=== PATIENT | female | born 1960 | race Caucasian/White ===

== ENCOUNTER → 2016-11-22 | Outpatient (CLI) | payer BC ==
--- NOTE | 2016-11-22 15:35 | XR ---
EXAMINATION TYPE: XR chest 2V DATE OF EXAM: 11/22/2016 3:26 PM COMPARISON: Prior chest x-ray October 22, 2013 HISTORY: Respiratory crackles and cough. TECHNIQUE: Frontal and lateral views of the chest are obtained. FINDINGS: There is central increased predominantly linear opacity bilaterally. No pleural effusion or pneumothorax is seen. The cardiac silhouette size is within normal limits. The osseous structure s are intact. IMPRESSION: Bilateral central perihilar edema and/or infiltrates felt present more prominent than pr ior study.
== END | disposition home or self-care (01) ==
LOC: RADXRMAIN 15:06
PROVIDERS: ATTEND Family Medicine
DX: R91.8 Other nonspecific abnormal finding of lung field (principal); R09.89 Other specified symptoms and signs involving the circulatory and respiratory systems
CPT/HCPCS: 71020

== ENCOUNTER → 2016-12-20 | Outpatient (CLI) | payer BC ==
--- NOTE | 2016-12-20 13:28 | CT ---
EXAMINATION TYPE: CT chest w con DATE OF EXAM: 12/20/2016 12:00 PM COMPARISON: NONE HISTORY: Abnormal findings CT DLP: 422.40 mGycm, Automated exposure control for dose reduction was used. CONTRAST: Performed injected with 100 ml mL of Omnipaque 300. TECHNIQUE: Axial images were obtained at 5 mm thick sections. Reconstructed images are reviewed on [employer] computer in the coronal plane. FINDINGS: Portion of the thyroid visualized is normal. A 0.5 cm pleural-based densities in the posterior right apex. Series 4 image 10. Scattered infiltrates are within the right middle lobe lingula and left lower lobe. Findings are nons pecific but can be related to atelectasis or pneumonia and atypical pulmonary edema. Follow-up is rec ommended. No enlarged mediastinal or hilar adenopathy is evident. The ascending aorta diameter at the level o f the main pulmonary artery is 2.9 cm. The main pulmonary artery diameter at the bifurcation is 2.[address] sections are obtained through the upper abdomen. Abdomen is essentially unremarkable. IMPRESSIONS: 1. Scattered areas of pneumonitis within the right middle lobe lingula and left lower lobe. Correlate for atelectasis or pneumonia. Atypical pulmonary edema could be considered.
--- NOTE | 2016-12-24 09:15 | MM ---
Reason for exam: screening (asymptomatic). Last mammogram was performed 2 years and 5 months ago. History: Patient is postmenopausal. Took estrogen for 12 years beginning at age 44. Physical Findings: A clinical breast exam by your physician is recommended on an annual basis and results should be correlated with mammographic findings. MG Screening Mammo w CAD Bilateral CC and MLO view(s) were taken. Prior study comparison: July 28, 2014, bilateral MG screening mammo w CAD. November 27, 2012, [facility] DIGITAL RIGHT MAMMOGRAM w/CAD. There are scattered fibroglandular densities. There is no discrete abnormality. No significant changes when compared with prior studies. ASSESSMENT: Negative, BI-RAD 1 RECOMMENDATION: Routine screening mammogram of both breasts in 1 year.
== END | disposition home or self-care (01) ==
LOC: RADMAMWWP 11:05
PROVIDERS: ATTEND Family Medicine
DX: Z12.31 Encounter for screening mammogram for malignant neoplasm of breast (principal); J18.9 Pneumonia, unspecified organism
CPT/HCPCS: 71260; G0202; Q9967

== ENCOUNTER → 2017-02-28 | Outpatient (CLI) | payer BC ==
--- NOTE | 2017-02-28 16:12 | CT ---
EXAMINATION TYPE: CT chest wo con DATE OF EXAM: 02/28/2017 3:37 PM COMPARISON: CT chest December 20, 2016 HISTORY: Abnormal Left sided lung sounds per patient CT DLP: 268 mGycm. Automated Exposure Control for Dose Reduction was Utilized. TECHNIQUE: CT scan of the thorax is performed without IV contrast. FINDINGS: LUNGS: There is persistent fibrosis with reticulation bilaterally most prominent in the upper to mid lungs particularly bilateral upper lobes. Mild to minimal bronchiectatic change suprahilar region carl aterally remains present. Lung bases show no evidence of significant acute or chronic lung disease. M idlung zones show less prominent peripheral reticulation and fibrosis. No significant progression fro m prior study is seen. No pleural effusion or pneumothorax is noted MEDIASTINUM: Lack of IV contrast is noted to limit evaluation for mediastinal and especially hilar ad enopathy. There are no definitive greater than 1 cm hilar or mediastinal lymph nodes. No cardiomega ly or pericardial effusion is seen. OTHER: No additional significant abnormality is seen. IMPRESSION: Central upper lung fibrotic change in both lungs without acute pulmonary process nicci avalos
== END | disposition home or self-care (01) ==
LOC: RADCTMAIN 15:14
PROVIDERS: ATTEND Internal Medicine Critical Care Medicine
DX: J84.10 Pulmonary fibrosis, unspecified (principal)
CPT/HCPCS: 71250

== ENCOUNTER → 2018-09-15 | Outpatient (CLI) | payer BC ==
--- NOTE | 2018-09-16 12:15 | MM ---
Reason for exam: screening (asymptomatic). Last mammogram was performed 1 year and 9 months ago. History: Patient is postmenopausal. Took estrogen for 12 years beginning at age 44. Physical Findings: A clinical breast exam by your physician is recommended on an annual basis and results should be correlated with mammographic findings. MG Screening Mammo w CAD Bilateral CC and MLO view(s) were taken. Prior study comparison: December 20, 2016, bilateral MG screening mammo w CAD. July 28, 2014, bilateral MG screening mammo w CAD. There are scattered fibroglandular densities. No significant changes when compared with prior studies. ASSESSMENT: Benign, BI-RAD 2 RECOMMENDATION: Routine screening mammogram of both breasts in 1 year.
== END ==
LOC: RADMAMWWP 11:09
PROVIDERS: ATTEND Family Medicine
DX: Z12.31 Encounter for screening mammogram for malignant neoplasm of breast (principal)
CPT/HCPCS: 77067

== ENCOUNTER → 2018-10-10 | Outpatient (CLI) | payer BC ==
--- NOTE | 2018-10-10 12:23 | XR ---
EXAMINATION TYPE: XR thoracic spine 2V DATE OF EXAM: 10/10/2018 COMPARISON: None HISTORY: Thoracic back pain TECHNIQUE: Three-view thoracic spine FINDINGS: There are 11 thoracic type vertebral bodies. The T12 level may be a transitional. Vertebral body heights are preserved. Disc heights are preserved. Some mild scoliosis may be present. This cou ld be positional. IMPRESSION: 1. No suspicious acute changes thoracic spine.
== END | disposition home or self-care (01) ==
LOC: RADXRMAIN 10:36
PROVIDERS: ATTEND Family Medicine
DX: M54.6 Pain in thoracic spine (principal)
CPT/HCPCS: 72070

== ENCOUNTER → 2018-12-12 | Outpatient (CLI) | payer BC ==
--- NOTE | 2018-12-12 16:38 | XR ---
EXAMINATION TYPE: XR cervical spine comp DATE OF EXAM: 12/12/2018 COMPARISON: None HISTORY: Rheumatoid arthritis, TECHNIQUE: Five-view cervical spine FINDINGS: Very minimal vascular calcification is likely present vessels bilaterally. Vertebral body h eights are preserved. Disc heights are preserved. Prevertebral space is normal. Posterior spinal lame llar line is intact. IMPRESSION: 1. Normal 5 view cervical spine
--- NOTE | 2018-12-12 16:40 | XR ---
EXAMINATION TYPE: XR chest 2V DATE OF EXAM: 12/12/2018 COMPARISON: Chest x-ray 11/22/2016 INDICATION: Rheumatoid arthritis TECHNIQUE: Frontal and lateral views of the chest are obtained. FINDINGS: The heart size is normal. The pulmonary vasculature is normal. There is mild increased lung markings left perihilar region. Some milder findings are present in the right perihilar region.. Findings have improved from the previous study are likely chronic IMPRESSION: 1. There appear to be chronic perihilar lung markings
--- NOTE | 2018-12-12 17:21 | XR ---
EXAMINATION TYPE: XR hand complete bilateral DATE OF EXAM: 12/12/2018 COMPARISON: None HISTORY: Rheumatoid arthritis TECHNIQUE: Three-view right hand FINDINGS: 3 view right hand appears normal without acute fracture or dislocations. Soft tissues are n ormal. Joint spaces are preserved. No periarticular erosions are evident. IMPRESSION: 1. Normal three-view right hand
--- NOTE | 2018-12-12 17:27 | XR ---
EXAMINATION TYPE: XR wrist complete BILATERAL DATE OF EXAM: 12/12/2018 COMPARISON: None HISTORY: Rheumatoid arthritis TECHNIQUE: 4 views each bilateral wrists FINDINGS: Soft tissues are normal. Joint spaces are preserved. No acute fractures or dislocations are evident. IMPRESSION: 1. Normal bilateral wrists.
== END | disposition home or self-care (01) ==
LOC: RADXRMAIN 11:45
PROVIDERS: ATTEND Internal Medicine
DX: M06.9 Rheumatoid arthritis, unspecified (principal)
CPT/HCPCS: 71046; 72050

== ENCOUNTER → 2018-12-13 | Outpatient (CLI) | payer BC ==
[2018-12-13 10:07] LABS: Basophils % (A) 1 %; Eosinophils # (A) 0.2 k/uL (0-0.7); Eosinophils % (A) 2 %; HCT 40.8 % (34.0-46.0); HGB 13.5 gm/dL (11.4-16.0); Lymphocytes % (A) 45 %; MCH 32.2 pg (25.0-35.0); MCHC 33.1 g/dL (31.0-37.0); MCV 97.2 fL (80.0-100.0); Mean Platelet Volume 6.5; Monocytes # (A) 0.4 k/uL (0-1.0); Monocytes % (A) 5 %; Neutrophils # (A) 4.2 k/uL (1.3-7.7); Neutrophils % (A) 47 %; Platelet Count 374 k/uL (150-450); RBC 4.19 m/uL (3.80-5.40); RDW 12.4 % (11.5-15.5)
[2018-12-13 10:17] LABS: Appearance,Urine Clear (Clear); Bilirubin,Urine Negative (Negative); Blood,Urine Negative (Negative); Color,Urine Light Yellow; Glucose,Urine (UA) Negative (Negative); Ketones,Urine Negative (Negative); Leukocyte Esterase,Urine Negative (Negative); Nitrite,Urine Negative (Negative); PH, Urine 6.5 (5.0-8.0); Protein,Urine Negative (Negative); Specific Gravity,Urine 1.008 (1.001-1.035); Urobilinogen,Urine <2.0 mg/dL (<2.0)
[2018-12-13 17:32] LABS: T4, Free (Free Thyroxine) 1.4 ng/dL (0.80-1.80)
[2018-12-13 17:42] LABS: Albumin 4.4 g/dL (3.80-4.90); Albumin/Globulin Ratio 1.76 (1.60-3.17); Anion Gap 6.4 mmol/L (4.00-12.00); Calcium 10.1 mg/dL (8.7-10.3); Carbon Dioxide 27.6 mmol/L (21.6-31.8); Globulin 2.5 g/dL (1.6-3.3); LDL Cholesterol,Calculated 54.8 mg/dL (0.0-131.0); Potassium 4.2 mmol/L (3.5-5.5); Total Bilirubin 0.2 mg/dL (0.3-1.2); Total Protein 6.9 g/dL (6.2-8.2); VLDL Calculation 21.2 mg/dL (5.00-40.00)
[2018-12-13 18:07] LABS: Hepatitis B Surface AB- Quant 3.5 mIU/mL; Hepatitis C IgG Antibody Non-Reactive (Non-Reactive)
[2018-12-13 18:11] LABS: Rheumatoid Factor 827 IU/mL (0-15); Vitamin D 25 Hydroxy 12.7 ng/mL (30.0-100.0)
[2018-12-13 18:55] LABS: Hemoglobin A1C 5.4 % (4.0-6.0)
[2018-12-15 11:22] LABS: Cyclic Citrullinated Pep IgG NEGATIVE (NEGATIVE)
[2018-12-15 11:43] LABS: HIV 1 AB Non-Reactive (Non-Reactive); HIV AB P24 Non-Reactive (Non-Reactive); HIV P24 AG Non-Reactive (Non-Reactive)
== END | disposition home or self-care (01) ==
LOC: LABWHC1 09:02
PROVIDERS: ATTEND Internal Medicine
DX: M06.9 Rheumatoid arthritis, unspecified (principal)
CPT/HCPCS: 36415; 80053; 80061; 81003; 82306; 83036; 84439; 84443; 85025; 86141; 86200; 86431; 86480; 86706; 86780; 86803; 87340; 87390

== ENCOUNTER → 2019-01-13 | Outpatient (CLI) | payer BC ==
--- NOTE | 2019-01-13 13:04 | ECHOF ---
Referral Reason:M06.9 Rheumatoid Arthritis MEASUREMENTS -------- HEIGHT: 157.5 cm WEIGHT: 73.0 kg BP: 117/59 RVIDd: 2.7 cm (< 3.3) IVSd: 1.0 cm (0.6 - 1.1) LVIDd: 4.2 cm (3.9 - 5.3) LVPWd: 1.0 cm (0.6 - 1.1) IVSs: 1.5 cm LVIDs: 2.4 cm LVPWs: 1.4 cm LA Diam: 3.0 cm (2.7 - 3.8) LAESV Index (A-L): 18.26 ml/m Ao Diam: 2.9 cm (2.0 - 3.7) AV Cusp: 2.1 cm (1.5 - 2.6) MV EXCURSION: 17.918 mm (> 18.000) MV EF SLOPE: 95 mm/s (70 - 150) EPSS: 1.1 cm MV E Guido: 0.98 m/s MV DecT: 184 ms MV A Guido: 0.76 m/s MV E/A Ratio: 1.28 RAP: 5.00 mmHg RVSP: 30.70 mmHg FINDINGS -------- Resting bradycardia (HR<60bpm). This was a technically adequate study. The left ventricular size is normal. Left ventricular wall thickness is normal. Overall left vent ricular systolic function is normal with, an EF between 55 - 60 %. The right ventricle is normal in size. Normal LA size by volume 22+/-6 ml/m2. The right atrium is normal in size. Aortic valve is trileaflet and is mildly thickened. The mitral valve leaflets are mildly thickened. Mild mitral annular calcification present. Mild m itral regurgitation is present. Mild tricuspid regurgitation present. Right ventricular systolic pressure is normal at < 35 mmHg. Trace/mild (physiologic) pulmonic regurgitation. The aortic root size is normal. Normal inferior vena cava with normal inspiratory collapse consistent with estimated right atrial pre ssure of 5 mmHg. There is no pericardial effusion. CONCLUSIONS -------- 1. Resting bradycardia (HR<60bpm). 2. This was a technically adequate study. 3. The left ventricular size is normal. 4. Left ventricular wall thickness is normal. 5. Overall left ventricular systolic function is normal with, an EF between 55 - 60 %. 6. The right ventricle is normal in size. 7. Normal LA size by volume 22+/-6 ml/m2. 8. The right atrium is normal in size. 9. Aortic valve is trileaflet and is mildly thickened. 10. The mitral valve leaflets are mildly thickened. 11. Mild mitral annular calcification present. 12. Mild mitral regurgitation is present. 13. Mild tricuspid regurgitation present. 14. Right ventricular systolic pressure is normal at < 35 mmHg. 15. Trace/mild (physiologic) pulmonic regurgitation. 16. The aortic root size is normal. 17. Normal inferior vena cava with normal inspiratory collapse consistent with estimated right atrial pressure of 5 mmHg. 18. There is no pericardial effusion. GLOBAL PRODUCT MANAGER: Shelley Carrillo RDCS
== END | disposition home or self-care (01) ==
LOC: RADECHMAIN 08:14
PROVIDERS: ATTEND Internal Medicine
DX: I08.3 Combined rheumatic disorders of mitral, aortic and tricuspid valves (principal); R06.9 Unspecified abnormalities of breathing
CPT/HCPCS: 93306

== ENCOUNTER → 2019-02-10 | Outpatient (CLI) | payer BC ==
--- NOTE | 2019-02-10 16:25 | BD ---
EXAMINATION TYPE: Axial Bone Density DATE OF EXAM: 02/10/2019 COMPARISON: NONE CLINICAL HISTORY: rheumatoid arthritis Height: 5'2 Weight: 159 FRAX RISK QUESTIONS: Secondary Osteoporosis: 3. Menopause before 45: y Rheumatoid Arthritis: y Current Tobacco Use: y RISK FACTORS HISTORY OF: Postmenopausal woman: y MEDICATIONS: prednisone : 3 months Thyroid Medications: Which medication: Levothyroxine How Lon years Additional Medications: blood pressure, pain, rheumatoid arthritis Additional History: EXAM MEASUREMENTS: Bone mineral densitometry was performed using the [facility] System. Bone mineral density as measured about the Lumbar spine is: ----- L1-L4(G/cm2): 1.221 T Score Values are as follows: ----- L2: -0.6 ----- L3: 1.0 ----- L4: 0.4 ----- L1-L4: 0.3 Bone mineral density about the R hip (g/cm2): 1.036 Bone mineral density about the L hip (g/cm2): 1.090 T Score values are as follows: -----R Neck: 0.0 -----L Neck: 0.4 -----R Total: 0.6 -----L Total: 0.7 IMPRESSION: Normal (Values between +1 and -1 indicate normal bone mass). Consider repeating this study in 5 year s or sooner if there is some new clinical indication. NOTE: T-SCORE=SD OF THE YOUNG ADULT MEAN.
== END | disposition home or self-care (01) ==
LOC: CPPFTMAIN 11:39
PROVIDERS: ATTEND Internal Medicine
DX: M06.9 Rheumatoid arthritis, unspecified (principal)
CPT/HCPCS: 77080; 94060; 94726; 94729

== ENCOUNTER → 2019-12-25 | Outpatient (CLI) | payer BC ==
[2019-12-25 12:02] LABS: Basophils % (A) 1 %; Eosinophils # (A) 0.1 k/uL (0-0.7); Eosinophils % (A) 1 %; Lymphocytes # (A) 1.1 k/uL (1.0-4.8); Lymphocytes % (A) 12 %; MCH 32.6 pg (25.0-35.0); MCHC 32.6 g/dL (31.0-37.0); MCV 100.2 fL (80.0-100.0); Macrocytosis Slight; Monocytes # (A) 0.3 k/uL (0-1.0); Monocytes % (A) 4 %; Neutrophils # (A) 7.6 k/uL (1.3-7.7); Neutrophils % (A) 82 %; Platelet Count 366 k/uL (150-450); RBC 3.99 m/uL (3.80-5.40); RDW 15.1 % (11.5-15.5); WBC 9.3 k/uL (3.8-10.6)
[2019-12-25 16:46] LABS: African American GFR (CKD) 70.4 (60.0-200.0); Anion Gap 7.5 mmol/L (4.00-12.00); C Reactive Protein, High Sens 11.68 mg/L (0.000-3.000); Calcium 9.9 mg/dL (8.7-10.3); Carbon Dioxide 25.5 mmol/L (21.6-31.8); Non-African American GFR(CKD) 60.8 (60.0-200.0); Potassium 4.3 mmol/L (3.5-5.5)
== END | disposition home or self-care (01) ==
LOC: LABWHC1 11:05
PROVIDERS: ATTEND Internal Medicine
DX: M06.9 Rheumatoid arthritis, unspecified (principal)
CPT/HCPCS: 36415; 80048; 84075; 84450; 84460; 85025; 86141

== ENCOUNTER → 2020-04-13 | Outpatient (CLI) | payer BC ==
[2020-04-13 12:48] LABS: Basophils % (A) 0 %; Eosinophils # (A) 0.2 k/uL (0-0.7); Eosinophils % (A) 2 %; HCT 40.6 % (34.0-46.0); HGB 13.2 gm/dL (11.4-16.0); Lymphocytes # (A) 3.8 k/uL (1.0-4.8); Lymphocytes % (A) 40 %; MCH 33.9 pg (25.0-35.0); MCHC 32.5 g/dL (31.0-37.0); MCV 104.3 fL (80.0-100.0); Macrocytosis Slight; Mean Platelet Volume 7.1; Monocytes # (A) 0.2 k/uL (0-1.0); Monocytes % (A) 2 %; Neutrophils # (A) 5.2 k/uL (1.3-7.7); Neutrophils % (A) 54 %; Platelet Count 360 k/uL (150-450); RBC 3.89 m/uL (3.80-5.40); RDW 13.5 % (11.5-15.5); WBC 9.6 k/uL (3.8-10.6)
[2020-04-13 21:18] LABS: African American GFR (CKD) 62.8 (60.0-200.0); Anion Gap 5.6 mmol/L (4.00-12.00); BUN/Creat Ratio 20.91 Ratio (12.00-20.00); C Reactive Protein, High Sens 1.55 mg/L (0.000-3.000); Calcium 9.6 mg/dL (8.7-10.3); Carbon Dioxide 25.4 mmol/L (21.6-31.8); Non-African American GFR(CKD) 54.1 (60.0-200.0); Potassium 4.4 mmol/L (3.5-5.5)
== END | disposition home or self-care (01) ==
LOC: LABWHC1 10:15
PROVIDERS: ATTEND Internal Medicine
DX: M06.9 Rheumatoid arthritis, unspecified (principal)
CPT/HCPCS: 36415; 80048; 84075; 84450; 84460; 85025; 86141

== ENCOUNTER → 2021-02-22 | Outpatient (CLI) | payer BC ==
[2021-02-22 23:38] LABS: Basophils # (A) 0.08 X 10*3/uL (0.00-0.10); Basophils % (A) 1.2 %; Eosinophils # (A) 0.31 X 10*3/uL (0.04-0.35); Eosinophils % (A) 4.8 %; HCT 41.6 % (37.2-46.3); HGB 12.8 g/dL (12.0-15.0); Lymphocytes # (A) 1.47 X 10*3/uL (0.90-5.00); Lymphocytes % (A) 22.6 %; MCH 31.1 pg (27.0-32.0); MCHC 30.8 g/dL (32.0-37.0); Mean Platelet Volume 10.3 fL (9.5-12.2); Monocytes % (A) 7.7 %; Neutrophils # (A) 4.12 X 10*3/uL (1.80-7.70); Neutrophils % (A) 63.2 %; Platelet Count 308 X 10*3/uL (140-440); RBC 4.12 X 10*6/uL (4.10-5.20); RDW 13.5 % (11.5-14.5); WBC 6.51 X 10*3/uL (4.50-10.00)
[2021-02-23 04:35] LABS: African American GFR (CKD) 50.9 (60.0-200.0); Albumin 4.3 g/dL (3.80-4.90); Albumin/Globulin Ratio 1.87 (1.60-3.17); Anion Gap 7.3 mmol/L (4.00-12.00); BUN/Creat Ratio 15.38 Ratio (12.00-20.00); C Reactive Protein 0.5 mg/dL (0.0-0.8); Calcium 10.4 mg/dL (8.7-10.3); Carbon Dioxide 27.7 mmol/L (21.6-31.8); Globulin 2.3 g/dL (1.6-3.3); Non-African American GFR(CKD) 43.9 (60.0-200.0); Potassium 3.9 mmol/L (3.5-5.5); Total Bilirubin 0.5 mg/dL (0.2-1.2); Total Protein 6.6 g/dL (6.2-8.2)
== END | disposition home or self-care (01) ==
LOC: LABWHC1 10:01
PROVIDERS: ATTEND Internal Medicine
DX: M06.9 Rheumatoid arthritis, unspecified (principal)
CPT/HCPCS: 36415; 80053; 85025; 86140

== ENCOUNTER → 2021-04-04 | Outpatient (CLI) | payer BC ==
[2021-04-04 15:19] LABS: Basophils # (A) 0.09 X 10*3/uL (0.00-0.10); Basophils % (A) 1.3 %; Eosinophils # (A) 0.56 X 10*3/uL (0.04-0.35); Eosinophils % (A) 8.1 %; HGB 13.7 g/dL (12.0-15.0); Lymphocytes # (A) 1.84 X 10*3/uL (0.90-5.00); Lymphocytes % (A) 26.5 %; MCH 32.1 pg (27.0-32.0); MCHC 31.9 g/dL (32.0-37.0); MCV 100.7 fL (80.0-97.0); Mean Platelet Volume 10.3 fL (9.5-12.2); Monocytes # (A) 0.62 X 10*3/uL (0.20-1.00); Monocytes % (A) 8.9 %; Neutrophils # (A) 3.81 X 10*3/uL (1.80-7.70); Neutrophils % (A) 54.8 %; Platelet Count 294 X 10*3/uL (140-440); RBC 4.27 X 10*6/uL (4.10-5.20); RDW 13.3 % (11.5-14.5); WBC 6.95 X 10*3/uL (4.50-10.00)
[2021-04-04 18:02] LABS: Erythrocyte Sedimentation Rate 12 mm/Hr (0-30)
[2021-04-04 19:15] LABS: African American GFR (CKD) 56.1 (60.0-200.0); Albumin 4.3 g/dL (3.80-4.90); Albumin/Globulin Ratio 1.65 (1.60-3.17); Anion Gap 9.8 mmol/L (4.00-12.00); BUN/Creat Ratio 13.33 Ratio (12.00-20.00); C Reactive Protein 0.8 mg/dL (0.0-0.8); Calcium 10.3 mg/dL (8.7-10.3); Carbon Dioxide 25.2 mmol/L (21.6-31.8); Globulin 2.6 g/dL (1.6-3.3); Non-African American GFR(CKD) 48.4 (60.0-200.0); Potassium 4.1 mmol/L (3.5-5.5); Total Bilirubin 0.4 mg/dL (0.3-1.2); Total Protein 6.9 g/dL (6.2-8.2)
== END | disposition home or self-care (01) ==
LOC: LABWHC1 10:52
PROVIDERS: ATTEND Internal Medicine
DX: M05.9 Rheumatoid arthritis with rheumatoid factor, unspecified (principal)
CPT/HCPCS: 36415; 80053; 85025; 85652; 86140; 86480

== ENCOUNTER → 2021-04-19 | Outpatient (CLI) | payer BC ==
--- NOTE | 2021-04-21 09:02 | BD ---
EXAMINATION TYPE: Axial Bone Density DATE OF EXAM: 04/19/2021 COMPARISON: 02/10/2019 CLINICAL HISTORY: Height: 60.2 IN Weight: 167 LBS FRAX RISK QUESTIONS: Secondary Osteoporosis: 3. Menopause before 45: PARTIAL HYST AGE 28 Rheumatoid Arthritis: YES RISK FACTORS HISTORY OF: Active: LIMITED Postmenopausal woman: PARTIAL HYST AGE 28 Frequent falls: YES FALLS DUE TO BALANCE ISSUES MEDICATIONS: Thyroid Medications: YES Which medication: Levothyroxine How Lon+ YEARS Osteoporosis Medications: Which medication: How Long: Additional Medications: FOLIC ACID, VIT D, CALCIUM, LEVOTHYROXINE, CHOLESTEROL MEDS EXAM MEASUREMENTS: Bone mineral densitometry was performed using the [employer] System. Bone mineral density as measured about the Lumbar spine is: ----- L1-L4(G/cm2): 1.260 T Score Values are as follows: ----- L2: -0.7 ----- L3: 0.7 ----- L4: 1.5 ----- L1-L4: 0.7 Bone mineral density has: Increased 2.8% since study of: 02/10/2019 Bone mineral density about the R hip (g/cm2): 1.022 Bone mineral density about the L hip (g/cm2): 1.073 T Score values are as follows: -----R Neck: -0.1 -----L Neck: 0.2 -----R Total: 0.6 -----L Total: 0.4 Bone mineral density has: Decreased -1.2% since study of: 02/10/2019 IMPRESSION: Normal (Values between +1 and -1 indicate normal bone mass). Consider repeating this study in 5 year s or sooner if there is some new clinical indication. NOTE: T-SCORE=SD OF THE YOUNG ADULT MEAN.
== END | disposition home or self-care (01) ==
LOC: RADBDWWP 14:30
PROVIDERS: ATTEND Internal Medicine
DX: M05.9 Rheumatoid arthritis with rheumatoid factor, unspecified (principal); Z78.0 Asymptomatic menopausal state
CPT/HCPCS: 77080

== ENCOUNTER → 2021-09-15 | Outpatient (CLI) | payer BC ==
--- NOTE | 2021-09-15 15:29 | US ---
EXAMINATION TYPE: US pelvic complete DATE OF EXAM: 09/15/2021 COMPARISON: CT abdomen and pelvis September 27, 2014 CLINICAL HISTORY: R10.30 Suprapubic Pain. Pelvic pain for the past 2 months, hysterectomy [id number] TECHNIQUE: Transabdominal (TA). Transabdominal sonographic images of the pelvis were acquired. Patient decline transvaginal exam. 1. Uterus: Surgically absent 2. Endometrium: Surgically absent 3. Right Ovary: Not seen 4. Left Ovary: Not seen 5. Bilateral Adnexa: wnl 6. Posterior cul-de-sac: wnl Uterus is surgically absent. No free fluid in pelvic cul-de-sac. Images of bladder in the pelvis appe ar within normal limits. Neither ovary clearly seen. No suspicious adnexal masses noted. IMPRESSION: No suspicious finding on images saved to account for patient's symptoms.
== END | disposition home or self-care (01) ==
LOC: RADUSWWP 14:50
PROVIDERS: ATTEND Family Medicine
DX: R10.2 Pelvic and perineal pain (principal)
CPT/HCPCS: 76856

== ENCOUNTER → 2022-07-05 | Outpatient (CLI) | payer BC ==
--- NOTE | 2022-07-05 19:50 | US ---
EXAMINATION TYPE: US pelvic complete DATE OF EXAM: 07/05/2022 COMPARISON: 09/15/2021 CLINICAL HISTORY: 62-year-old female R10.2 PELVIC AND PERINEAL PAIN. Intermittent pelvic cramps x 6 m onths, history of hysterectomy TECHNIQUE: Transabdominal sonographic images of the pelvis were acquired. Date of LMP: 1983 FINDINGS: EXAM MEASUREMENTS: Right Ovary: 2.7 x 1.2 x 1.8 cm Left Ovary: 2.3 x 1.5 x 2.0 cm 1. Uterus: surgically absent 2. Endometrium: surgically absent 3. Right Ovary: wnl 4. Left Ovary: wnl 5. Bilateral Adnexa: wnl 6. Posterior cul-de-sac: wnl IMPRESSION: Status post hysterectomy. Otherwise, unremarkable transabdominal exam of the pelvis.
== END | disposition home or self-care (01) ==
LOC: RADUSWWP 14:59
PROVIDERS: ATTEND Family Medicine
DX: R10.2 Pelvic and perineal pain (principal)
CPT/HCPCS: 76856

== ENCOUNTER 2022-09-26 06:31 | Inpatient (IN) | payer BC ==
--- NOTE | 2022-09-26 08:01 | ED ---
General Adult HPI - General Chief complaint: Neck Pain/Injury Stated complaint: Fall, Neck Pain Time Seen by Provider: 09/26/22 07:24 Source: patient, RN notes reviewed, old records reviewed Mode of arrival: ambulatory Limitations: no limitations - History of Present Illness Initial comments: Patient is a 62-year-old female with past medical history remarkable for essential hypertension, hypothyroidism, rheumatoid arthritis, COPD, hypertension who presents emergency Department after a fall. Patient states she lost her balance and fell backwards onto carpeted floor. Denies hitting her head. Denies loss of consciousness. Endorse neck pain to EMS, however currently denies it at this time. She denies any injury. Has a chronic indwelling Baez catheter. She presents for further evaluation at this time. Denies any acute complaints. States she does not want to be here.Fall occurred this morning. Patient does not endorse any worsening shortness of breath, however patient is requiring nasal cannula oxygen at this time. - Related Data Home Medications Medication Instructions Recorded Confirmed Atorvastatin [Lipitor] 80 mg PO HS 09/26/22 09/26/22 Cariprazine HCl [Vraylar] 3 mg PO DAILY 09/26/22 09/26/22 Clopidogrel [Plavix] 75 mg PO DAILY 09/26/22 09/26/22 Ergocalciferol (Vitamin D2) 1,250 mcg PO WE 09/26/22 09/26/22 [Drisdol (50,000 Iu)] FLUoxetine HCL 40 mg PO DAILY 09/26/22 09/26/22 Fenofibrate Nanocrystallized 145 mg PO DAILY 09/26/22 09/26/22 [Fenofibrate] Folic Acid 1 mg PO DAILY 09/26/22 09/26/22 Levothyroxine Sodium [Synthroid] 75 mcg PO DAILY 09/26/22 09/26/22 Thiamine [Vitamin B-1] 100 mg PO DAILY 09/26/22 09/26/22 diazePAM [Valium] 5 mg PO BID PRN 09/26/22 09/26/22 Allergies Allergy/AdvReac Type Severity Reaction Status Date / Time gabapentin Allergy Chest Pain Verified 09/26/22 07:52 Review of Systems ROS Statement: Those systems with pertinent positive or pertinent negative responses have been documented in the HPI. Review of Systems: CONST: Denies fever EYES: Denies blurry vision ENT: Denies nasal congestion C/V: Denies Chest pain RESP: Denies shortness of breath GI: Denies abdominal pain : Denies dysuria SKIN: Denies rash. MSK: Denies joint pain. NEURO: Denies headache ROS Other: All systems not noted in ROS Statement are negative. Past Medical History Past Medical History: Heart Failure, COPD, Hypertension, Rheumatoid Arthritis (RA), Thyroid Disorder History of Any Multi-Drug Resistant Organisms: None Reported Past Surgical History: No Surgical Hx Reported Past Psychological History: No Psychological Hx Reported Smoking Status: Former smoker Past Alcohol Use History: None Reported Past Drug Use History: None Reported General Exam - General Exam Comments Initial Comments: General: Appears in no acute distress. HEAD: Normal with no signs of head trauma. EYES: PERRLA, EOMI, conjunctiva normal, no discharge. ENT: Hearing grossly intact, normal oropharynx. RESPIRATORY: Bilateral crackles auscultated. No hypoxia. No increased work of breathing. C/V: Regular rate and rhythm. S1 and S2 auscultated, bilateral lower extremity pitting edema, peripheral pulses 2+ and intact throughout ABD: Abd is soft, nontender, nondistended EXT: Normal range of motion, no obvious deformity. Pelvis is stable. No midline cervical, thoracic, lumbar spine tenderness to palpation. SKIN: No rashes or lesions observed on exposed skin. NEURO: Alert and oriented. No acute focal deficits. Essential tremor baseline. Limitations: no limitations Course Vital Signs 09/26/22 09/26/22 09/26/22 06:45 11:36 15:03 Temperature 98.4 F Pulse Rate 110 H 103 H 85 Respiratory 20 22 16 Rate Blood Pressure 106/46 122/59 165/86 O2 Sat by Pulse 95 93 L 95 Oximetry Medical Decision Making - Medical Decision Making Based on the patient's presentation and physical exam, she presents from mechanical fall with no obvious injuries. Due to the patient stated age, as well as COMORBIDITIES I did recommend that we obtain basic laboratory studies, urinalysis, skin EKG as well as CT brain, C-spine as well as the chest and pelvic x-ray. She was in agreement this plan. Vital signs are within except for limits. Patient is requiring nasal cannula oxygen at this time and apparently usually requires 2-3 L at her facility and is requiring 4. EKG shows no signs of acute ischemia. Laboratory studies are remarkable for negative viral swans, relatively negative urinalysis, and acute hypokalemia at 2.7, a chronic anemia with hemoglobin 10. Troponin is undetectable. BNP is within normal limits. Pelvic x-ray as interpreted by myself reveals no evidence of acute fracture or injury. Chest x-ray as interpreted by myself does reveal bilateral patchy pulmonary edema likely secondary to heart failure. Patient initially was resistant to CT imaging, as well as admission after I discussed her workup with her. We waited for the patient's to arrive and she did consent to CT imaging at this time. She is her medical decision maker and was fully aware and competent. Patient's CT brain and C-spine is interpreted by myself showing no evidence of acute intracranial trauma, or fracture of the cervical spine. I did discuss with her that due to her lower extremity edema, chest x-ray findings, and concern for mild CHF exacerbation despite normal BNP. She clinically does fit. Therefore we will administer Lasix as well as her hyperkalemia at this time. She was in agreement this plan. Patient's was also in agreement this plan. I spoke with the admitting physician, Dr. Vigil who was in agreement with this plan and accepted the patient. Patient was admitted in stable condition. Ca rdiology was consulted for CHF. Echo was ordered. - Lab Data Result diagrams: 09/26/22 09:54 09/26/22 09:54 Lab Results 09/26/22 09/26/22 09/26/22 Range/Units 09:00 09:54 09:54 WBC 5.4 (3.8-10.6) k/uL RBC 2.74 L (3.80-5.40) m/uL Hgb 10.0 L (11.4-16.0) gm/dL Hct 30.3 L (34.0-46.0) % MCV 110.8 H (80.0-100.0) fL MCH 36.6 H (25.0-35.0) pg MCHC 33.0 (31.0-37.0) g/dL RDW 18.5 H (11.5-15.5) % Plt Count 180 (150-450) k/uL MPV 7.9 Neutrophils % 49 % Lymphocytes % 27 % Monocytes % 9 % Eosinophils % 11 % Basophils % 1 % Neutrophils # 2.7 (1.3-7.7) k/uL Lymphocytes # 1.5 (1.0-4.8) k/uL Monocytes # 0.5 (0-1.0) k/uL Eosinophils # 0.6 (0-0.7) k/uL Basophils # 0.0 (0-0.2) k/uL Manual Slide Review Performed Polychromasia Present Hypochromasia Moderate Poikilocytosis Slight Anisocytosis Slight Macrocytosis Marked A Sodium 136 L (137-145) mmol/L Potassium 2.7 L* (3.5-5.1) mmol/L Chloride 105 (98-107) mmol/L Carbon Dioxide 27 (22-30) mmol/L Anion Gap 4 mmol/L BUN 9 (7-17) mg/dL Creatinine 0.57 (0.52-1.04) mg/dL Est GFR (CKD-EPI)AfAm >90 (>60 ml/min/1.73 sqM) Est GFR (CKD-EPI)NonAf >90 (>60 ml/min/1.73 sqM) Glucose 92 (74-99) mg/dL Calcium 8.2 L (8.4-10.2) mg/dL Troponin I (0.000-0.034) ng/mL NT-Pro-B Natriuret Pep pg/mL Urine Color Yellow Urine Appearance Clear (Clear) Urine pH 6.5 (5.0-8.0) Ur Specific [place] 1.013 (1.001-1.035) Urine Protein Trace H (Negative) Urine Glucose (UA) Negative (Negative) Urine Ketones Negative (Negative) Urine Blood Moderate H (Negative) Urine Nitrite Negative (Negative) Urine Bilirubin Negative (Negative) Urine Urobilinogen <2.0 (<2.0) mg/dL Ur Leukocyte Esterase Small H (Negative) Urine RBC 7 H (0-5) /hpf Urine WBC 10 H (0-5) /hpf Ur Squamous Epith Cells <1 (0-4) /hpf Urine Bacteria Rare H (None) /hpf Urine Mucus Rare H (None) /hpf Urine Yeast (Budding) Many H (None) /hpf Influenza Type A (PCR) (Not Detectd) Influenza Type B (PCR) (Not Detectd) RSV (PCR) (Not Detectd) SARS-CoV-2 (PCR) (Not Detectd) 09/26/22 09/26/22 09/26/22 Range/Units 09:54 09:54 11:36 WBC (3.8-10.6) k/uL RBC (3.80-5.40) m/uL Hgb (11.4-16.0) gm/dL Hct (34.0-46.0) % MCV (80.0-100.0) fL MCH (25.0-35.0) pg MCHC (31.0-37.0) g/dL RDW (11.5-15.5) % Plt Count (150-450) k/uL MPV Neutrophils % % Lymphocytes % % Monocytes % % Eosinophils % % Basophils % % Neutrophils # (1.3-7.7) k/uL Lymphocytes # (1.0-4.8) k/uL Monocytes # (0-1.0) k/uL Eosinophils # (0-0.7) k/uL Basophils # (0-0.2) k/uL Manual Slide Review Polychromasia Hypochromasia Poikilocytosis Anisocytosis Macrocytosis Sodium (137-145) mmol/L Potassium (3.5-5.1) mmol/L Chloride (98-107) mmol/L Carbon Dioxide (22-30) mmol/L Anion Gap mmol/L BUN (7-17) mg/dL Creatinine (0.52-1.04) mg/dL Est GFR (CKD-EPI)AfAm (>60 ml/min/1.73 sqM) Est GFR (CKD-EPI)NonAf (>60 ml/min/1.73 sqM) Glucose (74-99) mg/dL Calcium (8.4-10.2) mg/dL Troponin I <0.012 (0.000-0.034) ng/mL NT-Pro-B Natriuret Pep 310 pg/mL Urine Color Urine Appearance (Clear) Urine pH (5.0-8.0) Ur Specific [place] (1.001-1.035) Urine Protein (Negative) Urine Glucose (UA) (Negative) Urine Ketones (Negative) Urine Blood (Negative) Urine Nitrite (Negative) Urine Bilirubin (Negative) Urine Urobilinogen (<2.0) mg/dL Ur Leukocyte Esterase (Negative) Urine RBC (0-5) /hpf Urine WBC (0-5) /hpf Ur Squamous Epith Cells (0-4) /hpf Urine Bacteria (None) /hpf Urine Mucus (None) /hpf Urine Yeast (Budding) (None) /hpf Influenza Type A (PCR) Not Detected (Not Detectd) Influenza Type B (PCR) Not Detected (Not Detectd) RSV (PCR) Not Detected (Not Detectd) SARS-CoV-2 (PCR) Not Detected (Not Detectd) - EKG Data -: EKG Interpreted by Me EKG Comments: 12-lead Electrocardiogram Interpretation Note EKG was reviewed and interpreted by myself. 12-lead ECG performed at 0906 is interpreted by me as revealing normal sinus rhythm at a rate of 107 beats per minute. Left axis deviation. MD interval is 154 ms, QRS duration is 101 ms, QTc is 420 ms.. There were no ST or T wave abnormalities to suggest myocardial ischemia or injury. R wave progression across the precordium was satisfactory. By my interpretation this EKG is non-diagnostic for acute ischemia. No prior EKG for comparison. Disposition Clinical Impression: CHF (congestive heart failure), Hypokalemia Disposition: ADMITTED IP TO THIS HOSP Condition: Stable Time of Disposition: 13:00
--- NOTE | 2022-09-26 08:41 | XR ---
EXAMINATION TYPE: XR pelvis AP view DATE OF EXAM: 09/26/2022 CLINICAL HISTORY: Fall injury with pain TECHNIQUE: A single AP view of the pelvis is obtained. COMPARISON: CT abdomen and pelvis 2013. FINDINGS: There is no acute fracture/dislocation evident in the pelvis. The hip and sacroiliac join ts appear symmetric and unremarkable. Pubic symphysis is intact. The overlying soft tissue appears u nremarkable. IMPRESSION: There is no acute fracture or dislocation in the pelvis.
--- NOTE | 2022-09-26 08:42 | XR ---
EXAMINATION TYPE: XR chest 1V portable DATE OF EXAM: 09/26/2022 COMPARISON: Chest x-ray December 12, 2018 HISTORY: Fall injury with pain TECHNIQUE: Single frontal view of the chest is obtained. FINDINGS: Increased opacities bilaterally are noted. Lung volumes redemonstrated. The cardiac silhou ette size is upper limits of normal. The osseous structures are intact. IMPRESSION: Diffuse bilateral edema and/or infiltrates more prominent from 2019 study.
[2022-09-26 09:25] LABS: Appearance,Urine Clear (Clear); Bacteria,Urine Rare /hpf; Bilirubin,Urine Negative (Negative); Blood,Urine Moderate (Negative); Budding Yeast,Urine Many /hpf; Color,Urine Yellow; Glucose,Urine (UA) Negative (Negative); Ketones,Urine Negative (Negative); Leukocyte Esterase,Urine Small (Negative); Mucus,Urine Rare /hpf; Nitrite,Urine Negative (Negative); PH, Urine 6.5 (5.0-8.0); Protein,Urine Trace (Negative); RBC,Urine 7 /hpf (0-5); Specific Gravity,Urine 1.013 (1.001-1.035); Squamous Epithelial Cell,Urine <1 /hpf (0-4); Urobilinogen,Urine <2.0 mg/dL (<2.0); WBC,Urine 10 /hpf (0-5)
[2022-09-26] MEDS ORDERED: LORazepam 2 MG/ML INJ IV STA (09:52)
[2022-09-26 10:06] LABS: Anisocytosis Slight; Basophils % (A) 1 %; Eosinophils # (A) 0.6 k/uL (0-0.7); Eosinophils % (A) 11 %; HCT 30.3 % (34.0-46.0); Hypochromasia Moderate; Lymphocytes # (A) 1.5 k/uL (1.0-4.8); Lymphocytes % (A) 27 %; MCH 36.6 pg (25.0-35.0); MCV 110.8 fL (80.0-100.0); Macrocytosis Marked; Mean Platelet Volume 7.9; Monocytes # (A) 0.5 k/uL (0-1.0); Monocytes % (A) 9 %; Neutrophils # (A) 2.7 k/uL (1.3-7.7); Neutrophils % (A) 49 %; Platelet Count 180 k/uL (150-450); Poikilocytosis Slight; RBC 2.74 m/uL (3.80-5.40); RDW 18.5 % (11.5-15.5); WBC 5.4 k/uL (3.8-10.6)
[2022-09-26 10:13] LABS: African American GFR (CKD) >90 (>60 ml/min/1.73 sqM); Anion Gap 4 mmol/L; Blood Urea Nitrogen 9 mg/dL (7-17); Calcium 8.2 mg/dL (8.4-10.2); Carbon Dioxide 27 mmol/L (22-30); Chloride 105 mmol/L (98-107); Glucose 92 mg/dL (74-99); Non-African American GFR(CKD) >90 (>60 ml/min/1.73 sqM); Sodium 136 mmol/L (137-145)
[2022-09-26 10:16] LABS: Potassium 2.7 mmol/L (3.5-5.1)
[2022-09-26 11:01] LABS: Polychromasia Present
[2022-09-26] MEDS ORDERED: POTASSIUM CHLORIDE ER 20 MEQ TAB.ER PO STA (11:05)
[2022-09-26] MEDS ORDERED: FUROSEMIDE 10 MG/ML 4 ML VIAL IV STA (13:49)
[2022-09-26] MEDS ORDERED: NALOXONE 0.4 MG/ML 1 ML VIAL IV PRN (13:56)
[2022-09-26] MEDS ORDERED: ERGOCALCIFEROL 1,250 MCG (50,000 IU) CAPSULE PO SCH (14:00)
[2022-09-26] MEDS: POTASSIUM CHLORIDE 10 MEQ in WATER FOR INJECTION 1 100ML.BAG IVPB SCH ×4 (14:25→20:27)
--- NOTE | 2022-09-26 14:43 | CT ---
EXAMINATION TYPE: CT brain cspine wo con DATE OF EXAM: 09/26/2022 COMPARISON: NONE HISTORY: possible fall injury with headache and neck pain. CT DLP: 1445 mGycm. Automated Exposure Control for Dose Reduction was Utilized. TECHNIQUE: CT scan of the head and cervical spine are performed without contrast. FINDINGS: There is no acute intracranial hemorrhage or midline shift identified. There is mild vent ricular and sulcal prominence. The calvarium is intact. The globes are intact and the visualized sin uses are clear. Cervical spine is visualized in its entirety from C1 through upper thoracic levels and demonstrates l evoconvex scoliosis centered upper thoracic spine without evidence of acute fracture or dislocation. Prevertebral soft tissue appears within normal limits. The C1-C2 articulation is within normal limi ts on the coronal images. Vertebral body height and disc space heights are preserved. Spinal canal i s maintained. Emphysematous change in the upper lungs is seen with parenchymal scarring and honeycomb ing in the mid lungs. IMPRESSION: 1. There is no acute fracture or dislocation evident in the cervical spine. 2. No acute intracranial hemorrhage or midline shift is seen.
[2022-09-26] MEDS ORDERED: Magnesium Replacement Protocol 1 EACH MISC MISCELLANE PRN (15:06)
[2022-09-26] MEDS ORDERED: Potassium Replacement Protocol 1 EACH MISC MISCELLANE PRN (15:06)
[2022-09-26] MEDS: HEPARIN SODIUM,PORCINE/PF 5,000 UNIT/0.5 ML SYRINGE SQ SCH ×2 (16:03→23:23)
[2022-09-26] MEDS: POTASSIUM CHLORIDE ER 20 MEQ TAB.ER PO SCH ×2 (16:03→20:26)
[2022-09-26 19:43] LABS: Potassium 3.5 mmol/L (3.5-5.1)
[2022-09-26] MEDS: FUROSEMIDE 10 MG/ML 4 ML VIAL IV SCH (20:26)
[2022-09-26] MEDS: ATORVASTATIN 80 MG TAB PO SCH (20:26)
[2022-09-26] MEDS ORDERED: diazePAM 5 MG TAB PO STA (22:44)
--- NOTE | 2022-09-27 00:37 | HP ---
HISTORY AND PHYSICAL CHIEF COMPLAINT: Shortness of breath, fall, and severe hypokalemia. HISTORY OF PRESENT ILLNESS: This 62-year-old woman with a past medical history of CHF, COPD, hypertension, rheumatoid arthritis, apparently was in [facility] resuming rehab. Six days in the rehab, the patient complained of weakness, patient fell down and the patient apparently had a syncopal episode. Patient was taken to [facility] and was admitted for evaluation and treatment. Evaluation showed severe hypokalemia, otherwise troponins are normal. UA is abnormal. The patient did not report any urinary symptoms and the chest x-ray which was reviewed personally by me showed diffuse bilateral edema and interstitial prominence. There is no history of any fever, rigors, or chills at this time. PAST MEDICAL HISTORY: Reviewed, include COPD, CHF. The rest of the history and rest of the chart is also reviewed. HOME MEDICATIONS: Reviewed include thiamine, dose and rest of the medications reviewed. ALLERGIES: Gabapentin. FAMILY HISTORY: No history of heart disease or strokes in the family. SOCIAL HISTORY: Previous history of smoking. REVIEW OF SYSTEMS: A 14-point review is negative as mentioned earlier. PHYSICAL EXAMINATION: VITAL SIGNS: Pulse is 103, blood pressure 120/59, respirations 22. HEENT: Conjunctivae normal. NECK: No jugular venous distention. CARDIOVASCULAR: S1, S2 muffled. RESPIRATIONS: Diminished at the bases. Bilateral scattered rhonchi, no crackles. ABDOMEN: Soft, nontender. LEGS: No edema, no swelling. NERVOUS SYSTEM: Diffusely weak. LABS: WBC 5.2, hemoglobin is 10, sodium 130, potassium 2.2. Other labs are noted. ASSESSMENT: 1. Fall and gait dysfunction, possibly dehydration. 2. Severe hypokalemia and hyponatremia. 3. Congestive heart failure. 4. Chronic obstructive pulmonary disease. 5. Hypertension. 6. Rheumatoid arthritis. RECOMMENDATIONS: This 62-year-old woman presented with multiple complex medical issues, we will monitor the patient closely, continue the current medications, symptomatic treatment. Otherwise, replace potassium. Monitor closely. Monitor blood pressure closely. I would also recommend cardiology consultation, 1 dose of Lasix was given and further recommendations to follow. MMODL / IJN: [id number] /
[2022-09-27] MEDS: LEVOTHYROXINE 75 MCG TAB PO SCH (06:41)
[2022-09-27] MEDS: PANTOPRAZOLE 40 MG TABLET PO SCH (06:41)
[2022-09-27] MEDS: FLUoxetine HCL 20 MG CAP PO SCH (08:49)
[2022-09-27] MEDS: CLOPIDOGREL 75 MG TAB PO SCH (08:49)
[2022-09-27] MEDS: POTASSIUM CHLORIDE ER 20 MEQ TAB.ER PO SCH ×2 (08:49→21:05)
[2022-09-27] MEDS: HEPARIN SODIUM,PORCINE/PF 5,000 UNIT/0.5 ML SYRINGE SQ SCH ×3 (08:49→21:06)
[2022-09-27] MEDS: THIAMINE 100 MG TAB PO SCH (08:49)
[2022-09-27] MEDS: FOLIC ACID 1 MG TAB PO SCH (08:49)
[2022-09-27] MEDS: FENOFIBRATE 160 MG TAB PO SCH (08:50)
[2022-09-27 10:19] LABS: HCT 34.5 % (37.2-46.3); HGB 10.5 g/dL (12.0-15.0); MCH 35.1 pg (27.0-32.0); MCHC 30.4 g/dL (32.0-37.0); MCV 115.4 fL (80.0-97.0); Mean Platelet Volume 10.1 fL (9.5-12.2); NRBC Per 100 WBC 0 /100 WBCS (0.0-0.0); Platelet Count 197 X 10*3/uL (140-440); RBC 2.99 X 10*6/uL (4.10-5.20); RDW 18.9 % (11.5-14.5); WBC 6.64 X 10*3/uL (4.50-10.00)
[2022-09-27] MEDS: diazePAM 5 MG TAB PO PRN ×2 (10:22→21:05)
[2022-09-27] MEDS: PATIENT'S OWN (Cariprazine Hcl [Vraylar] 3 MG Capsule) PO SCH (10:23)
[2022-09-27] MEDS: FUROSEMIDE 10 MG/ML 4 ML VIAL IV SCH (10:23)
--- NOTE | 2022-09-27 10:26 | CA ---
Transthoracic Echo Report Name: Mary Navarro Age: 62 Gender: F : 1960 Exam Date: 09/27/2022 08:30 Exam Location: [place] [facility] Ht (in): 65 Wt (lb): 160 Ordering Physician: Boogie Andrea MD Attending/Referring Phys: [employer] Range Tender Hansa Garcia RDCS Procedure CPT: Indications: chf Cardiac Hx: Technical Quality: Contrast 1: Total Dose (mL): Contrast 2: Total Dose (mL): MEASUREMENTS (Male / Female) Normal Values 2D ECHO LV Diastolic Diameter PLAX 3.5 cm 4.2 - 5.9 / 3.9 - 5.3 cm LV Systolic Diameter PLAX 2.8 cm IVS Diastolic Thickness 1.1 cm 0.6 - 1.0 / 0.6 - 0.9 cm LVPW Diastolic Thickness 1.8 cm 0.6 - 1.0 / 0.6 - 0.9 cm LV Relative Wall Thickness 0.9 RV Internal Dim ED PLAX 3.0 cm M-MODE Aortic Root Diameter MM 2.6 cm LA Systolic Diameter MM 2.8 cm LA Ao Ratio MM 1.1 MV E Point Septal Separation 0.2 cm AV Cusp Separation MM 1.7 cm DOPPLER MV Area PHT 3.2 cm??? Mitral E Point Velocity 35.0 cm/s Mitral A Point Velocity 62.7 cm/s Mitral E to A Ratio 0.6 MV Deceleration Time 237.1 ms MV E' Velocity 3.6 cm/s Mitral E to MV E' Ratio 9.6 FINDINGS Left Ventricle Mildly increased septal wall thickness. Left ventricular ejection fraction is estimated at 55%. Right Ventricle Normal right ventricular size and function. Right ventricular systolic pressure within normal limits. Right Atrium Normal right atrial size. Left Atrium Normal left atrial size. Mitral Valve Structurally normal mitral valve. Mild mitral regurgitation. Aortic Valve Trileaflet aortic valve. Tricuspid Valve Structurally normal tricuspid valve. Pulmonic Valve Structurally normal pulmonic valve. Pericardium Echo free space anterior to the right ventricle likely represents a fat pad. Aorta Normal size aortic root and proximal ascending aorta. CONCLUSIONS Normal LV systolic function Mild mitral regurgitation Previewed by: Dr. Mazin Marie MD (Electronically Signed) Final Date: 27 September 2022 10:26
[2022-09-27 10:29] LABS: African American GFR (CKD) 111.6 (60.0-200.0); Albumin 2.8 g/dL (3.8-4.9); Albumin/Globulin Ratio 1.08 (1.60-3.17); Anion Gap 10.1 mmol/L (10.00-18.00); Blood Urea Nitrogen 4.8 mg/dL (9.0-27.0); Calcium 8.7 mg/dL (8.7-10.3); Carbon Dioxide 23.9 mmol/L (20.0-27.5); Globulin 2.6 g/dL (1.6-3.3); Magnesium 1.4 mg/dL (1.5-2.4); Non-African American GFR(CKD) 96.3 (60.0-200.0); Potassium 3.6 mmol/L (3.5-5.5); Total Bilirubin 0.7 mg/dL (0.30-1.20); Total Protein 5.4 g/dL (6.2-8.2)
[2022-09-27 10:56] LABS: Basophils # (A) 0.08 X 10*3/uL (0.00-0.10); Basophils % (A) 1.2 %; Eosinophils # (A) 1.51 X 10*3/uL (0.04-0.35); Eosinophils % (A) 22.7 %; Immature Grans, Automated 0.2 %; Lymphocytes # (A) 2.14 X 10*3/uL (0.90-5.00); Lymphocytes % (A) 32.2 %; Macrocytosis (M) 3+; Monocytes # (A) 0.91 X 10*3/uL (0.20-1.00); Monocytes % (A) 13.7 %; Neutrophils # (A) 1.99 X 10*3/uL (1.80-7.70)
--- NOTE | 2022-09-27 11:14 | P.CRDCN ---
History of Present Illness Consult date: 09/27/22 Consult reason: congestive heart failure Chief complaint: fall History of present illness: History of present illness: This is a 62-year-old that follows with Dr. VITOR Colbert with past medical history of hypertension, hyperlipidemia, rheumatoid arthritis, COPD. gives history the patient was at [facility] due to a reaction from the Humira injection and was then discharged to rehab at [facility]. Patient had a fall there yesterday, falling backwards. Patient denies having any lightheadedness or dizziness prior to the fall, no shortness of breath and denies chest pain. EKG is sinus tachycardia Echocardiogram reveals normal LV systolic function, mild mitral regurgitation Chest x-ray reveals diffuse bilateral edema and/or infiltrates more prominent from 2019 WBC 5.4, hemoglobin 10, platelet count 180. Sodium 136, potassium 2.7. BUN 9 and creatinine 0.57. Troponin negative times one draw. Magnesium 1.4 this morning and repeat potassium of 3.6 this morning. Influenza A, influenza B, R SV, Covid 19 not detected. Review Of Systems: At the time of my evaluation Constitutional: No fever, no chills. No weakness, fatigue or lethargy. EENT: No headache. No dizziness. Lungs: No shortness of breath, cough, no sputum production. No wheezing. Cardiovascular: No chest pain, no lower extremity edema. No palpitations. No paroxysmal nocturnal dyspnea. No orthopnea. No lightheadedness or dizziness. No syncopal episodes. Abdominal: No abdominal pain. No nausea, vomiting. No diarrhea. No constipation. No bloody or tarry stools.. No loss of appetite. Genitourinary: No dysuria.. No urinary retention. Musculoskeletal: No myalgias. No muscle weakness, no gait dysfunction, no frequent falls. No back pain. No neck pain. History of one fall. Integumentary: No wounds. No rash or pruritus. No unusual bruising. Neurologic: No aphasia. No facial droop. No change in mentation. No head injury. No headache. No paralysis. No paresthesia. Psychiatric: No depression. No anxiety. Endocrine: No abnormal blood sugars. Physical examination: Gen: This is a 62-year-old female. She is resting in bed and appears to be comfortable. is at bedside VS: reviewed HEENT: Head is atraumatic, normocephalic. Pupils equal, round. Sclerae is anicteric. NECK: Supple. No JVD. LUNGS: Clear to auscultation. Scattered rhonchi. No intercostal retractions. HEART: Regular rate and rhythm. No murmur. ABDOMEN: Soft. No masses. No tenderness. EXTREMITIES: No pedal edema. No calf tenderness. NEUROLOGICAL: Patient is awake, alert and oriented x3. Assessment: Fall No heart failure, normal ejection fraction on echocardiogram Hypertension Hyperlipidemia Rheumatoid arthritis COPD Plan: No further cardiac workup is necessary. Cardiology will follow on an as-needed basis. Please reconsult if new concerns develops. Thank you kindly for this consultation. Nurse practitioner note has been reviewed, I agree with documented findings and plan of care. Patient was seen and examined. Past Medical History Past Medical History: Heart Failure, COPD, Hypertension, Rheumatoid Arthritis (RA), Thyroid Disorder History of Any Multi-Drug Resistant Organisms: None Reported Past Surgical History: No Surgical Hx Reported Past Psychological History: No Psychological Hx Reported Smoking Status: Former smoker Past Alcohol Use History: None Reported Past Drug Use History: None Reported Medications and Allergies Home Medications Medication Instructions Recorded Confirmed Type Atorvastatin [Lipitor] 80 mg PO HS 09/26/22 09/26/22 History Cariprazine HCl [Vraylar] 3 mg PO DAILY 09/26/22 09/26/22 History Clopidogrel [Plavix] 75 mg PO DAILY 09/26/22 09/26/22 History Ergocalciferol (Vitamin D2) 1,250 mcg PO WE 09/26/22 09/26/22 History [Drisdol (50,000 Iu)] FLUoxetine HCL 40 mg PO DAILY 09/26/22 09/26/22 History Fenofibrate Nanocrystallized 145 mg PO DAILY 09/26/22 09/26/22 History [Fenofibrate] Folic Acid 1 mg PO DAILY 09/26/22 09/26/22 History Levothyroxine Sodium [Synthroid] 75 mcg PO DAILY 09/26/22 09/26/22 History Thiamine [Vitamin B-1] 100 mg PO DAILY 09/26/22 09/26/22 History diazePAM [Valium] 5 mg PO BID PRN 09/26/22 09/26/22 History Allergies Allergy/AdvReac Type Severity Reaction Status Date / Time gabapentin Allergy Chest Pain Verified 09/26/22 07:52 Physical Exam Vitals: Vital Signs Temp Pulse Pulse Resp BP BP BP 09/27/22 07:00 98.3 F 114 H 18 101/69 09/27/22 02:54 97 F L 109 H 17 122/73 09/26/22 23:28 20 09/26/22 22:17 97.3 F L 100 17 136/81 09/26/22 18:00 110 H 20 135/68 09/26/22 16:00 86 16 130/80 09/26/22 15:03 85 16 165/86 09/26/22 11:36 103 H 22 122/59 BP BP BP Pulse Ox 09/27/22 07:00 111/70 90/54 101/69 95 09/27/22 02:54 97 09/26/22 23:28 09/26/22 22:17 99 09/26/22 18:00 95 09/26/22 16:00 95 09/26/22 15:03 95 09/26/22 11:36 93 L Intake and Output 09/26/22 09/27/22 09/27/22 22:59 06:59 14:59 Output Total 3300 1100 Balance -3300 -1100 Output: Urine 3300 1100 Other: Voiding Method Indwelling Catheter # Voids 1,000 Results 09/27/22 07:34 09/27/22 07:34 Cardiac Enzymes 09/26/22 Range/Units 09:54 Troponin I <0.012 (0.000-0.034) ng/mL CBC 09/26/22 Range/Units 09:54 WBC 5.4 (3.8-10.6) k/uL RBC 2.74 L (3.80-5.40) m/uL Hgb 10.0 L (11.4-16.0) gm/dL Hct 30.3 L (34.0-46.0) % Plt Count 180 (150-450) k/uL Comprehensive Metabolic Panel 09/26/22 09/26/22 Range/Units 09:54 19:19 Sodium 136 L 134 L (137-145) mmol/L Potassium 2.7 L* 3.5 (3.5-5.1) mmol/L Chloride 105 102 (98-107) mmol/L Carbon Dioxide 27 27 (22-30) mmol/L BUN 9 (7-17) mg/dL Creatinine 0.57 (0.52-1.04) mg/dL Glucose 92 (74-99) mg/dL Calcium 8.2 L (8.4-10.2) mg/dL Current Medications Generic Name Dose Route Start Last Admin Trade Name Freq PRN Reason Stop Dose Admin Atorvastatin Calcium 80 mg 09/26/22 21:00 09/26/22 20:26 Atorvastatin 80 Mg Tab PO 80 mg HS JOSE Administration Clopidogrel Bisulfate 75 mg 09/27/22 09:00 Clopidogrel 75 Mg Tab PO DAILY JOSE Ergocalciferol 1,250 mcg 09/26/22 14:00 09/26/22 15:02 Ergocalciferol 1,250 Mcg (50,000 Iu) Capsule PO 1,250 mcg We@0900 JOSE Administration Fenofibrate 160 mg 09/27/22 09:00 Fenofibrate 160 Mg Tab PO DAILY JOSE Fluoxetine HCl 40 mg 09/27/22 09:00 Fluoxetine Hcl 20 Mg Cap PO DAILY JOSE Folic Acid 1 mg 09/27/22 09:00 Folic Acid 1 Mg Tab PO DAILY JOSE Furosemide 40 mg 09/26/22 21:00 09/26/22 20:26 Furosemide 10 Mg/Ml 4 Ml Vial IV 40 mg Q12HR JOSE Administration Heparin Sodium (Porcine) 5,000 unit 09/26/22 16:00 09/26/22 23:23 Heparin Sodium,Porcine/Pf 5,000 Unit/0.5 Ml Syringe SQ 5,000 unit Q8HR JOSE Administration Levothyroxine Sodium 75 mcg 09/27/22 06:30 09/27/22 06:41 Levothyroxine 75 Mcg Tab PO 75 mcg 0630 JOSE Administration Miscellaneous Information 1 each 09/26/22 15:06 Potassium Replacement Protocol 1 Each Misc MISCELLANE DAILY PRN Per Protocol Protocol Miscellaneous Information 1 each 09/26/22 15:06 Magnesium Replacement Protocol 1 Each Mis MISCELLANE DAILY PRN Per Protocol Protocol Multivitamins 1 each 09/27/22 12:00 Multivitamins, Thera 1 Each Tab PO DAILY@1200 [facility] Naloxone HCl 0.2 mg 09/26/22 13:56 Naloxone 0.4 Mg/Ml 1 Ml Vial IV Q2M PRN Opioid Reversal Patient's Own ( 3 mg 09/27/22 09:00 Cariprazine Hcl [ PO Vraylar] 3 Mg DAILY JOSE Capsule) Pantoprazole Sodium 40 mg 09/27/22 07:30 09/27/22 06:41 Pantoprazole 40 Mg Tablet PO 40 mg AC-BRKFST JOSE Administration Potassium Chloride 20 meq 09/26/22 15:15 09/26/22 20:26 Potassium Chloride Er 20 Meq Tab.Er PO 20 meq BID JOSE Administration Thiamine HCl 100 mg 09/27/22 09:00 Thiamine 100 Mg Tab PO DAILY JOSE Intake and Output 09/26/22 09/27/22 09/27/22 22:59 06:59 14:59 Output Total 3300 1100 Balance -3300 -1100 Output: Urine 3300 1100 Other: Voiding Method Indwelling Catheter # Voids 1,000 09/26/22 09:54 09/26/22 19:19
[2022-09-27] MEDS: MULTIVITAMINS, THERA 1 EACH TAB PO SCH (12:22)
[2022-09-27] MEDS: FUROSEMIDE 40 MG TAB PO SCH (15:42)
[2022-09-27] MEDS: ATORVASTATIN 80 MG TAB PO SCH (21:05)
[2022-09-28] MEDS: PANTOPRAZOLE 40 MG TABLET PO SCH (05:51)
[2022-09-28] MEDS: LEVOTHYROXINE 75 MCG TAB PO SCH (05:51)
--- NOTE | 2022-09-28 07:17 | PN ---
PROGRESS NOTE DATE OF SERVICE: 09/27/2022 SUBJECTIVE: This 62-year-old woman was admitted with CHF acute exacerbation, also had some fall. The patient is being closely monitored. The patient was recently in the ECF. The 2D echo with Doppler, which was reviewed personally by me showed normal LV function. The patient had adequate urine output at this time. OBJECTIVE: VITAL SIGNS: Pulse is 114, blood pressure 109/69. HEENT: Conjunctivae normal. NECK: No JVD. CARDIOVASCULAR: S1, S2 muffled. RESPIRATIONS: Breath sounds diminished at the bases. ABDOMEN: Soft. NERVOUS SYSTEM: No focal deficits. LABORATORY DATA: Reviewed. ASSESSMENT: 1. Fall and gait dysfunction, possible dehydration, mild orthostatic hypotension. 2. Severe hypokalemia and hyponatremia. 3. Congestive heart failure history. 4. Chronic obstructive pulmonary disease. 5. Hypertension. 6. Rheumatoid arthritis. RECOMMENDATIONS: Recommend to continue current medications, symptomatic treatment. Otherwise, at this time, monitor the blood pressure closely. I would continue with cautious diuresis. Change p.o. Closely follow with Cardiology. Increase ambulation. PT/OT evaluation. Possible return to ECF tomorrow. MMODL / IJN: [id number] /
[2022-09-28 08:57] VITALS: BP 116/71; PULSE 98; RESP 20; TEMP 98.7
[2022-09-28] MEDS: HEPARIN SODIUM,PORCINE/PF 5,000 UNIT/0.5 ML SYRINGE SQ SCH (09:35)
[2022-09-28] MEDS: FUROSEMIDE 40 MG TAB PO SCH (09:36)
[2022-09-28] MEDS: FOLIC ACID 1 MG TAB PO SCH (09:36)
[2022-09-28] MEDS: FENOFIBRATE 160 MG TAB PO SCH (09:36)
[2022-09-28] MEDS: CLOPIDOGREL 75 MG TAB PO SCH (09:36)
[2022-09-28] MEDS: POTASSIUM CHLORIDE ER 20 MEQ TAB.ER PO SCH (09:36)
[2022-09-28] MEDS: THIAMINE 100 MG TAB PO SCH (09:36)
[2022-09-28] MEDS: FLUoxetine HCL 20 MG CAP PO SCH (09:36)
[2022-09-28] MEDS: PATIENT'S OWN (Cariprazine Hcl [Vraylar] 3 MG Capsule) PO SCH (09:36)
[2022-09-28] MEDS: MULTIVITAMINS, THERA 1 EACH TAB PO SCH (12:02)
[2022-09-28 12:05] LABS: Basophils # (A) 0.05 X 10*3/uL (0.00-0.10); Eosinophils # (A) 1.18 X 10*3/uL (0.04-0.35); Eosinophils % (A) 23.3 %; HCT 33.7 % (37.2-46.3); HGB 10.1 g/dL (12.0-15.0); Immature Grans, Automated 0.2 %; Lymphocytes # (A) 1.77 X 10*3/uL (0.90-5.00); Lymphocytes % (A) 34.9 %; MCH 35.8 pg (27.0-32.0); MCV 119.5 fL (80.0-97.0); Mean Platelet Volume 10.9 fL (9.5-12.2); Monocytes # (A) 0.85 X 10*3/uL (0.20-1.00); Monocytes % (A) 16.8 %; NRBC Per 100 WBC 0 /100 WBCS (0.0-0.0); Neutrophils # (A) 1.21 X 10*3/uL (1.80-7.70); Neutrophils % (A) 23.8 %; Platelet Count 169 X 10*3/uL (140-440); RBC 2.82 X 10*6/uL (4.10-5.20); RDW 18.6 % (11.5-14.5); WBC 5.07 X 10*3/uL (4.50-10.00)
[2022-09-28 12:26] LABS: African American GFR (CKD) 111.6 (60.0-200.0); Albumin 2.7 g/dL (3.8-4.9); Albumin/Globulin Ratio 1.08 (1.60-3.17); Anion Gap 8.9 mmol/L (10.00-18.00); BUN/Creat Ratio 10.33 Ratio (12.00-20.00); Blood Urea Nitrogen 6.2 mg/dL (9.0-27.0); Calcium 8.2 mg/dL (8.7-10.3); Carbon Dioxide 28.1 mmol/L (20.0-27.5); Globulin 2.5 g/dL (1.6-3.3); Non-African American GFR(CKD) 96.3 (60.0-200.0); Potassium 3.7 mmol/L (3.5-5.5); Total Bilirubin 0.6 mg/dL (0.30-1.20); Total Protein 5.2 g/dL (6.2-8.2)
--- NOTE | 2022-09-28 13:35 | P.DS ---
Providers Date of admission: 09/27/22 14:17 Expected date of discharge: 09/28/22 Attending physician: Hudson Vigil Consults: 09/26/22 13:56 Consult Physician Routine Consulting Provider: [facility] Consult Reason/Comments: chf exacerbation Do you want consulting provider notified?: Yes Primary care physician: Stated None Hospital Course: Final diagnosis Falling gait dysfunction, mild orthostatic hypotension Severe hypokalemia and hyponatremia, improved History of congestive heart failure with diastolic dysfunction Chronic obstructive pulmonary disease history not in exacerbation Hypertension Rheumatoid arthritis Mild dehydration due to diuretics Discharge disposition Patient is being discharged in a stable condition with guarded prognosis to [facility]. Patient will follow-up with Dr. Aguilera in the outpatient setting upon discharge. Patient is to follow-up outpatient with cardiology. , And close monitoring of kidney functions and electrolytes due to Lasix and recommend repeat BMP in the next 2-3 days. Total time taken is greater than 35 minutes. Hospital course This is a 62-year-old female who was recently admitted with CHF exacerbation and being closely monitored. Patient also having some falls and weakness was evaluated by cardiology had a 2-D echo showing a normal LV function and will continue on oral Lasix. Recommend close follow-up outpatient with some labs to monitor kidney functions and electrolytes with a BMP in the next 2-3 days. Encourage elevating lower extremities while at rest and monitoring intake of fluids. Recommend fluid restrictions of 1500 mL's per day and no salt included. Patient extremely anxious to go and has been cleared by cardiology. Currently no reports of chest pain, shortness of breath, or palpitations. Patient is afebrile. No reports of nausea or vomiting and patient is tolerating diet. Patient will be going to [facility] today. Guarded prognosis. Physical exam: Gen: This is a 62-year-old female awake, alert and oriented 3, well-developed, well-nourished HEENT: Head is atraumatic, normocephalic. Pupils equal, round. Sclerae is anicteric. NECK: Supple. No JVD. No lymphadenopathy. No thyromegaly. LUNGS: Diminished breath sounds bilaterally with some scattered rhonchi noted. No intercostal retractions. HEART: S1, S2 muffled ABDOMEN: Soft. Bowel sounds are present. No masses. No tenderness. EXTREMITIES: No pedal edema. No calf tenderness. NEUROLOGICAL: Patient is awake, alert and oriented x3. Cranial nerves 2 through 12 are grossly intact. Please refer to medication reconciliation sheet for a list of medications. The impression and plan of care has been dictated by Jovita Winter, Nurse Practitioner as directed. Dr. Musa MD I have performed a history and examination and MDM of this patient, discussed the same with the dictator, and agree with the dictator's assessment and plan as written ,documented as a scribe. Based on total visit time, I have performed more than 50% of the visit. Patient Condition at Discharge: Stable Plan - Discharge Summary New Discharge Prescriptions: New Furosemide [Lasix] 40 mg PO BID@0900,1600 tab Multivitamins, Thera [Multivitamin (formulary)] 1 each PO DAILY@1200 tab Potassium Chloride ER [K-Dur 20] 20 meq PO BID tab Pantoprazole [Protonix] 40 mg PO AC-BRKFST tab Continue Ergocalciferol (Vitamin D2) [Drisdol (50,000 Iu)] 1,250 mcg PO WE Levothyroxine Sodium [Synthroid] 75 mcg PO DAILY FLUoxetine HCL 40 mg PO DAILY Cariprazine HCl [Vraylar] 3 mg PO DAILY diazePAM [Valium] 5 mg PO BID PRN #6 tab PRN Reason: Anxiety Thiamine [Vitamin B-1] 100 mg PO DAILY Folic Acid 1 mg PO DAILY Fenofibrate Nanocrystallized [Fenofibrate] 145 mg PO DAILY Atorvastatin [Lipitor] 80 mg PO HS Clopidogrel [Plavix] 75 mg PO DAILY Discharge Medication List Atorvastatin [Lipitor] 80 mg PO HS 09/26/22 [History] Cariprazine HCl [Vraylar] 3 mg PO DAILY 09/26/22 [History] Clopidogrel [Plavix] 75 mg PO DAILY 09/26/22 [History] Ergocalciferol (Vitamin D2) [Drisdol (50,000 Iu)] 1,250 mcg PO WE 09/26/22 [History] FLUoxetine HCL 40 mg PO DAILY 09/26/22 [History] Fenofibrate Nanocrystallized [Fenofibrate] 145 mg PO DAILY 09/26/22 [History] Folic Acid 1 mg PO DAILY 09/26/22 [History] Levothyroxine Sodium [Synthroid] 75 mcg PO DAILY 09/26/22 [History] Thiamine [Vitamin B-1] 100 mg PO DAILY 09/26/22 [History] Furosemide [Lasix] 40 mg PO BID@0900,1600 tab 09/28/22 [Rx] Multivitamins, Thera [Multivitamin (formulary)] 1 each PO DAILY@1200 tab 09/28/22 [Rx] Pantoprazole [Protonix] 40 mg PO AC-BRKFST tab 09/28/22 [Rx] Potassium Chloride ER [K-Dur 20] 20 meq PO BID tab 09/28/22 [Rx] diazePAM [Valium] 5 mg PO BID PRN #6 tab 09/28/22 [Rx] Follow up Appointment(s)/Referral(s): Deondre Diego DO [STAFF PHYSICIAN] - 1-2 days Activity/Diet/Wound Care/Special Instructions: Patient is going to [facility] on the [facility] Activity as tolerated Follow-up with primary care provider on discharge Continue taking medications as prescribed Follow-up cardiology outpatient Continue heart healthy diet Recommend repeat labs of CBC, BMP in the next 2-3 days Discharge Disposition: TRANSFER TO SNF/ECF
[2022-09-28] MEDS: diazePAM 5 MG TAB PO PRN (14:50)
== END 2022-09-28 14:55 | DRG 312 ==
LOC: EC 06:31 → 6NMEDSUR 13:57 → OBSVTOIN 09-27 14:17
PROVIDERS: ADMIT Hospitalist; ATTEND Hospitalist
DX: I95.1 Orthostatic hypotension (principal); E87.1 Hypo-osmolality and hyponatremia; I50.32 Chronic diastolic (congestive) heart failure; I11.0 Hypertensive heart disease with heart failure; J44.9 Chronic obstructive pulmonary disease, unspecified; M06.9 Rheumatoid arthritis, unspecified; Z20.822 Contact with and (suspected) exposure to COVID-19; E86.0 Dehydration; E87.6 Hypokalemia; E03.9 Hypothyroidism, unspecified; I34.0 Nonrheumatic mitral (valve) insufficiency; E78.5 Hyperlipidemia, unspecified; T50.2X5A Adverse effect of carbonic-anhydrase inhibitors, benzothiadiazides and other diuretics, initial encounter; D64.9 Anemia, unspecified; R26.9 Unspecified abnormalities of gait and mobility; M54.2 Cervicalgia; Z79.02 Long term (current) use of antithrombotics/antiplatelets; Z79.890 Hormone replacement therapy; Z79.899 Other long term (current) drug therapy; Z87.891 Personal history of nicotine dependence; Z88.8 Allergy status to other drugs, medicaments and biological substances; W01.0XXA Fall on same level from slipping, tripping and stumbling without subsequent striking against object, initial encounter
CPT/HCPCS: 36415; 70450; 71045; 72125; 72170; 80048; 80051; 80053; 81001; 83735; 83880; 84484; 85025; 87636; 93005; 93306; 96365; 96366; 96372; 96375; 96376; 99285

== ENCOUNTER 2022-10-11 11:45 | Emergency (ER) | payer BC ==
[2022-10-11 11:56] VITALS: RESP 18
--- NOTE | 2022-10-11 12:29 | ED ---
General Adult HPI - General Chief complaint: Recheck/Abnormal Lab/Rx Stated complaint: abn labs Time Seen by Provider: 10/11/22 11:59 Source: patient, EMS, RN notes reviewed Mode of arrival: EMS Limitations: no limitations - History of Present Illness Initial comments: 62-year-old female sent emergency Department via EMS from [facility] for evaluation of hypokalemia. Patient is on potassium and Lasix daily. Patient found to have potassium 2.7 patient has no complaints of chest pain palpitations headache dizziness lightheaded nausea vomiting diarrhea. Patient denies any recent medication changes. Patient offers no other associated sympt oms. - Related Data Home Medications Medication Instructions Recorded Confirmed Atorvastatin [Lipitor] 80 mg PO HS 09/26/22 10/11/22 Cariprazine HCl [Vraylar] 3 mg PO DAILY 09/26/22 10/11/22 Clopidogrel [Plavix] 75 mg PO DAILY 09/26/22 10/11/22 Ergocalciferol (Vitamin D2) 1,250 mcg PO WE 09/26/22 10/11/22 [Drisdol (50,000 Iu)] FLUoxetine HCL 40 mg PO DAILY 09/26/22 10/11/22 Fenofibrate Nanocrystallized 145 mg PO DAILY 09/26/22 10/11/22 [Fenofibrate] Folic Acid 1 mg PO DAILY 09/26/22 10/11/22 Levothyroxine Sodium [Synthroid] 75 mcg PO DAILY 09/26/22 10/11/22 Thiamine [Vitamin B-1] 100 mg PO DAILY 09/26/22 10/11/22 Multivitamins, Thera [Multivitamin 1 tab PO DAILY@1200 10/11/22 10/11/22 (formulary)] Previous Rx's Medication Instructions Recorded Furosemide [Lasix] 40 mg PO BID@0900,1600 tab 09/28/22 Pantoprazole [Protonix] 40 mg PO AC-BRKFST tab 09/28/22 Potassium Chloride ER [K-Dur 20] 20 meq PO BID tab 09/28/22 diazePAM [Valium] 5 mg PO BID PRN #6 tab 09/28/22 Allergies Allergy/AdvReac Type Severity Reaction Status Date / Time gabapentin Allergy Chest Pain Verified 10/11/22 14:04 Review of Systems ROS Statement: Those systems with pertinent positive or pertinent negative responses have been documented in the HPI. ROS Other: All systems not noted in ROS Statement are negative. Past Medical History Past Medical History: Heart Failure, COPD, Hypertension, Rheumatoid Arthritis (RA), Thyroid Disorder History of Any Multi-Drug Resistant Organisms: None Reported Past Surgical History: No Surgical Hx Reported Past Psychological History: No Psychological Hx Reported Smoking Status: Former smoker Past Alcohol Use History: None Reported Past Drug Use History: None Reported General Exam Limitations: no limitations General appearance: alert, in no apparent distress Head exam: Present: atraumatic, normocephalic, normal inspection Eye exam: Present: normal appearance, PERRL, EOMI. Absent: scleral icterus, conjunctival injection, periorbital swelling ENT exam: Present: normal exam, normal oropharynx, mucous membranes moist Neck exam: Present: normal inspection, full ROM. Absent: tenderness, meningismus, lymphadenopathy Respiratory exam: Present: normal lung sounds bilaterally. Absent: respiratory distress, wheezes, rales, rhonchi, stridor Cardiovascular Exam: Present: regular rate, normal rhythm, normal heart sounds. Absent: systolic murmur, diastolic murmur, rubs, gallop, clicks Neurological exam: Present: alert, oriented X3 Skin exam: Present: warm, dry, intact, normal color. Absent: rash Course Vital Signs 10/11/22 11:55 Temperature 97.4 F L Pulse Rate 99 Respiratory 18 Rate Blood Pressure 115/62 O2 Sat by Pulse 93 L Oximetry EKG Findings - EKG Comments: EKG Findings:: EKG performed at 12:21/60 cart a rate of 103, OK 118 QRS 98 QT/QTC 356/466 to left anterior fascicular block - EKG Results: EKG: interpreted by REYES Medical Decision Making - Medical Decision Making 62-year-old female presented for hypokalemia. Patient does have 2.9 currently. Patient was given additional oral, IV dose. Patient will increase her potassium few days and have her recheck. Patient does have mild thrombocytopenia with no active bleeding or complaints. Patient lab recheck l abs at assisted return parameters were discussed. - Lab Data Result diagrams: 10/11/22 12:07 10/11/22 12:07 Lab Results 10/11/22 10/11/22 Range/Units 12:07 12:07 WBC 4.2 (3.8-10.6) k/uL RBC 3.79 L (3.80-5.40) m/uL Hgb 13.5 D (11.4-16.0) gm/dL Hct 40.0 (34.0-46.0) % MCV 105.6 H D (80.0-100.0) fL MCH 35.6 H (25.0-35.0) pg MCHC 33.8 (31.0-37.0) g/dL RDW 14.7 (11.5-15.5) % Plt Count 60 L D (150-450) k/uL MPV 9.9 Neutrophils % 62 % Lymphocytes % 27 % Monocytes % 5 % Eosinophils % 3 % Basophils % 1 % Neutrophils # 2.6 (1.3-7.7) k/uL Lymphocytes # 1.1 (1.0-4.8) k/uL Monocytes # 0.2 (0-1.0) k/uL Eosinophils # 0.1 (0-0.7) k/uL Basophils # 0.0 (0-0.2) k/uL Manual Slide Review Performed Macrocytosis Moderate Sodium 134 L (137-145) mmol/L Potassium 2.9 L (3.5-5.1) mmol/L Chloride 97 L (98-107) mmol/L Carbon Dioxide 31 H (22-30) mmol/L Anion Gap 6 mmol/L BUN 16 (7-17) mg/dL Creatinine 0.76 (0.52-1.04) mg/dL Est GFR (CKD-EPI)AfAm >90 (>60 ml/min/1.73 sqM) Est GFR (CKD-EPI)NonAf 84 (>60 ml/min/1.73 sqM) Glucose 156 H (74-99) mg/dL Calcium 8.7 (8.4-10.2) mg/dL Magnesium 1.6 (1.6-2.3) mg/dL Total Bilirubin 0.8 (0.2-1.3) mg/dL AST 85 H (14-36) U/L ALT 35 H (4-34) U/L Alkaline Phosphatase 130 H (38-126) U/L Total Protein 7.4 (6.3-8.2) g/dL Albumin 3.2 L (3.5-5.0) g/dL Disposition Clinical Impression: Hypokalemia Disposition: HOME SELF-CARE Condition: Stable Instructions (If sedation given, give patient instructions): Hypokalemia (ED) Additional Instructions: Please return to the Emergency Department if symptoms worsen or any other concerns. Is patient prescribed a controlled substance at d/c from ED?: No Referrals: Jonas Aguilera MD [Primary Care Provider] - 1-2 days Time of Disposition: 14:34
[2022-10-11 12:57] LABS: Basophils % (A) 1 %; Eosinophils # (A) 0.1 k/uL (0-0.7); Eosinophils % (A) 3 %; Lymphocytes # (A) 1.1 k/uL (1.0-4.8); Lymphocytes % (A) 27 %; MCH 35.6 pg (25.0-35.0); MCHC 33.8 g/dL (31.0-37.0); Macrocytosis Moderate; Mean Platelet Volume 9.9; Monocytes # (A) 0.2 k/uL (0-1.0); Monocytes % (A) 5 %; Neutrophils # (A) 2.6 k/uL (1.3-7.7); Neutrophils % (A) 62 %; RBC 3.79 m/uL (3.80-5.40); RDW 14.7 % (11.5-15.5); WBC 4.2 k/uL (3.8-10.6)
[2022-10-11 12:58] LABS: ALT 35 U/L (4-34); African American GFR (CKD) >90 (>60 ml/min/1.73 sqM); Albumin 3.2 g/dL (3.5-5.0); Alkaline Phosphatase 130 U/L (38-126); Anion Gap 6 mmol/L; Calcium 8.7 mg/dL (8.4-10.2); Carbon Dioxide 31 mmol/L (22-30); Chloride 97 mmol/L (98-107); Magnesium 1.6 mg/dL (1.6-2.3); Non-African American GFR(CKD) 84 (>60 ml/min/1.73 sqM); Potassium 2.9 mmol/L (3.5-5.1); Sodium 134 mmol/L (137-145); Total Protein 7.4 g/dL (6.3-8.2)
[2022-10-11 13:00] LABS: AST 85 U/L (14-36); Blood Urea Nitrogen 16 mg/dL (7-17); Glucose 156 mg/dL (74-99); HGB 13.5 gm/dL (11.4-16.0); Total Bilirubin 0.8 mg/dL (0.2-1.3)
[2022-10-11 13:01] LABS: MCV 105.6 fL (80.0-100.0)
[2022-10-11 13:42] LABS: Platelet Count 60 k/uL (150-450)
[2022-10-11] MEDS ORDERED: POTASSIUM CHLORIDE ER 20 MEQ TAB.ER PO STA (14:31)
[2022-10-11] MEDS ORDERED: POTASSIUM CHLORIDE 10 MEQ in WATER FOR INJECTION 1 100ML.BAG IVPB STA (14:31)
[2022-10-11 15:58] VITALS: BP 120/77; PULSE 92
[2022-10-11 16:27] VITALS: TEMP 97.8
== END 2022-10-11 17:55 | disposition home or self-care (01) ==
LOC: EC 11:45
DX: E87.6 Hypokalemia (principal); Z88.8 Allergy status to other drugs, medicaments and biological substances; Z87.891 Personal history of nicotine dependence
CPT/HCPCS: 99285; 96365; 36415; 93005; 80053; 83735; 85025; J3480

== ENCOUNTER 2023-05-08 14:43 | Emergency (ER) | payer BC ==
--- NOTE | 2023-05-08 15:00 | ED ---
General Adult HPI - General Chief complaint: Anxiety Stated complaint: anxiety Time Seen by Provider: 05/08/23 15:00 Source: EMS Mode of arrival: EMS Limitations: no limitations - History of Present Illness Initial comments: Mary is a 62-year-old female with a history of essential tremor and anxiety. She is brought to the ER today by ambulance with report of uncontrollable shaking. Patient reports she feels as though she is taking on the outside and inside. She states that whenever she has a new doctor's appointment she gets very nervous and usually ends up missing the were canceling them. She is scheduled to see a new neurologist at the end of this week regarding further workup of her tremor and gait problems. Patient reports she takes multiple medications but she has been compliant with all of her medications as prescribed. In review of her medication she has Valium morning and night for anxiety. No SSRIs, SNRI antidepressants or antipsychotics prescribed. - Related Data Home Medications Medication Instructions Recorded Confirmed Atorvastatin [Lipitor] 80 mg PO HS 09/26/22 10/11/22 Cariprazine HCl [Vraylar] 3 mg PO DAILY 09/26/22 10/11/22 Clopidogrel [Plavix] 75 mg PO DAILY 09/26/22 10/11/22 Ergocalciferol (Vitamin D2) 1,250 mcg PO WE 09/26/22 10/11/22 [Drisdol (50,000 Iu)] FLUoxetine HCL 40 mg PO DAILY 09/26/22 10/11/22 Fenofibrate Nanocrystallized 145 mg PO DAILY 09/26/22 10/11/22 [Fenofibrate] Folic Acid 1 mg PO DAILY 09/26/22 10/11/22 Levothyroxine Sodium [Synthroid] 75 mcg PO DAILY 09/26/22 10/11/22 Thiamine [Vitamin B-1] 100 mg PO DAILY 09/26/22 10/11/22 Multivitamins, Thera [Multivitamin 1 tab PO DAILY@1200 10/11/22 10/11/22 (formulary)] Previous Rx's Medication Instructions Recorded Furosemide [Lasix] 40 mg PO BID@0900,1600 tab 09/28/22 Pantoprazole [Protonix] 40 mg PO AC-BRKFST tab 09/28/22 Potassium Chloride ER [K-Dur 20] 20 meq PO BID tab 12/16/22 diazePAM [Valium] 5 mg PO BID PRN #6 tab 09/28/22 Cephalexin [Keflex] 500 mg PO Q12HR 5 Days #10 cap 05/08/23 Allergies Allergy/AdvReac Type Severity Reaction Status Date / Time adalimumab [From Humira] Allergy Anaphylaxis Verified 05/08/23 15:02 gabapentin Allergy Chest Pain Verified 10/11/22 14:04 Review of Systems ROS Statement: Those systems with pertinent positive or pertinent negative responses have been documented in the HPI. ROS Other: All systems not noted in ROS Statement are negative. Past Medical History Past Medical History: Heart Failure, COPD, Hypertension, Rheumatoid Arthritis (RA), Thyroid Disorder History of Any Multi-Drug Resistant Organisms: None Reported Past Surgical History: No Surgical Hx Reported Past Psychological History: No Psychological Hx Reported Smoking Status: Former smoker Past Alcohol Use History: None Reported Past Drug Use History: None Reported General Exam - General Exam Comments Initial Comments: Physical Exam GENERAL: Patient appears anxious and is tremoring Speaking in full sentence Non-toxic, not ill appearing HENT: Normocephalic, Atraumatic. EYES: PERRL, EOMI PULMONARY: Unlabored respirations. CARDIOVASCULAR: RRR Warm and well perfused extremities ABDOMEN: Non-distended SKIN: No rashes or bruising : Deferred NEUROLOGIC: Alert and oriented Tremor - not distractable MUSCULOSKELETAL: Moving all extremities with no apparent injury PSYCHIATRIC: No SI/HI Limitations: no limitations Course Vital Signs 05/08/23 14:47 Pulse Rate 98 Respiratory 18 Rate Blood Pressure 116/69 O2 Sat by Pulse 93 L Oximetry EKG Findings - EKG Comments: EKG Findings:: EKG interpreted by me EKG was obtained at 1455, rate is 94 rhythm is sinus with an anterior fascicular block. No acute ST elevations or depressions no evidence of acute ischemia or infarction. Tremor is noted. No arrhythmia noted. Medical Decision Making - Medical Decision Making Patient was seen and evaluated, history is obtained from the patient and family at bedside. Patient feeling very anxious and shaking. She was given Ativan for anxiety. Labs are obtained and are within normal limits aside from hypomagnesemia which will be repleted with by mouth magnesium. urinalysis shows evidence of a very early UTI. Patient was started on Keflex for this. Upon reevaluation the patient was much more comfortable, tremors have decreased. She states that D IV Ativan worked much better than her by mouth Valium at home. She is comfortable with plan for discharge home continued outpatient management. Was pt. sent in by a medical professional or institution ([employer], MEDIA STRATEGIST, urgent care, hospital, or fpc...) When possible be specific @ -No Did you speak to anyone other than the patient for history (EMS, parent, family, police, friend...)? What history was obtained from this source @ -Family at bedside Did you review nursing and triage notes (agree or disagree)? Why? @ -I reviewed and agree with nursing and triage notes Were old charts reviewed (outside hosp., previous admission, EMS record, old EKG, old radiological studies, urgent care reports/EKG's, fpc records)? Report findings @ -No old charts were reviewed Differential Diagnosis (chest pain, altered mental status, abdominal pain women, abdominal pain men, vaginal bleeding, weakness, fever, dyspnea, syncope, headache, dizziness, GI bleed, back pain, seizure, CVA, palpatations, mental health, musculoskeletal)? @ -Differential diagnosis for anxiety is generalized anxiety, electrolyte abnormality, infection. This list is not all inclusive EKG interpreted by me (3pts min.). @ -As above X-rays interpreted by me (1pt min.). @ -None done CT interpreted by me (1pt min.). @ -None done U/S interpreted by me (1pt. min.). @ -None done What testing was considered but not performed or refused? (CT, X-rays, U/S, labs)? Why? @ -None What meds were considered but not given or refused? Why? @ -None Did you discuss the management of the patient with other professionals (professionals i.e. [employer], MEDIA STRATEGIST, lab, RT, psych nurse, social services analyst, clinical research scientist, teacher, aboriginal home school liaison officer, director of casework services)? Give summary @ -No Was smoking cessation discussed for >3mins.? @ -No Was critical care preformed (if so, how long)? @ -No Were there social determinants of health that impacted care today? How? (Homelessness, low income, unemployed, alcoholism, drug addiction, transportation, low edu. Level, literacy, decrease access to med. care, residential, rehab)? @ -No Was there de-escalation of care discussed even if they declined (Discuss DNR or withdrawal of care, Hospice)? DNR status @ -No What co-morbidities impacted this encounter? (DM, HTN, Smoking, COPD, CAD, Cancer, CVA, ARF, Chemo, Hep., AIDS, mental health diagnosis, sleep apnea, morbid obesity)? @ -None Was patient admitted / discharged? Hospital course, mention meds given and route, prescriptions, significant lab abnormalities, going to OR and other pertinent info. @ -Discharge Undiagnosed new problem with uncertain prognosis? @ -No Drug Therapy requiring intensive monitoring for toxicity (Heparin, Nitro, Insulin, Cardizem)? @ -No Were any procedures done? @ -No Diagnosis/symptom? @ -Anxiety, UTI, hypomagnesemia Acute, or Chronic, or Acute on Chronic? @ -default Uncomplicated (without systemic symptoms) or Complicated (systemic symptoms)? @ -default Side effects of treatment? @ -No Exacerbation, Progression, or Severe Exacerbation? @ -No Poses a threat to life or bodily function? How? (Chest pain, [place], [place], pneumonia, PE, COPD, DKA, ARF, appy, cholecystitis, CVA, Diverticulitis, Homicidal, Suicidal, threat to staff... and all critical care pts) @ -No - Lab Data Result diagrams: 05/08/23 15:19 05/08/23 15:19 Lab Results 05/08/23 05/08/23 05/08/23 Range/Units 15:19 15:19 16:06 WBC 4.8 (3.8-10.6) k/uL RBC 3.61 L (3.80-5.40) m/uL Hgb 11.8 (11.4-16.0) gm/dL Hct 35.7 (34.0-46.0) % MCV 99.1 (80.0-100.0) fL MCH 32.6 (25.0-35.0) pg MCHC 33.0 (31.0-37.0) g/dL RDW 14.0 (11.5-15.5) % Plt Count 153 (150-450) k/uL MPV 7.6 Neutrophils % 73 % Lymphocytes % 18 % Monocytes % 4 % Eosinophils % 3 % Basophils % 0 % Neutrophils # 3.5 (1.3-7.7) k/uL Lymphocytes # 0.9 L (1.0-4.8) k/uL Monocytes # 0.2 (0-1.0) k/uL Eosinophils # 0.2 (0-0.7) k/uL Basophils # 0.0 (0-0.2) k/uL Sodium 136 L (137-145) mmol/L Potassium 3.8 (3.5-5.1) mmol/L Chloride 103 (98-107) mmol/L Carbon Dioxide 25 (22-30) mmol/L Anion Gap 8 mmol/L BUN 8 (7-17) mg/dL Creatinine 0.50 L (0.52-1.04) mg/dL Est GFR (CKD-EPI)AfAm >90 (>60 ml/min/1.73 sqM) Est GFR (CKD-EPI)NonAf >90 (>60 ml/min/1.73 sqM) Glucose 78 (74-99) mg/dL Calcium 8.1 L (8.4-10.2) mg/dL Magnesium 1.4 L (1.6-2.3) mg/dL Total Bilirubin 0.5 (0.2-1.3) mg/dL AST 43 H (14-36) U/L ALT 26 (4-34) U/L Alkaline Phosphatase 158 H (38-126) U/L Total Protein 6.0 L (6.3-8.2) g/dL Albumin 2.9 L (3.5-5.0) g/dL TSH 1.270 (0.465-4.680) mIU/L Urine Color Light Yellow Urine Appearance Clear (Clear) Urine pH 6.5 (5.0-8.0) Ur Specific [place] 1.010 (1.001-1.035) Urine Protein Negative (Negative) Urine Glucose (UA) Negative (Negative) Urine Ketones Negative (Negative) Urine Blood Negative (Negative) Urine Nitrite Negative (Negative) Urine Bilirubin Negative (Negative) Urine Urobilinogen <2.0 (<2.0) mg/dL Ur Leukocyte Esterase Trace H (Negative) Urine RBC 1 (0-5) /hpf Urine WBC 12 H (0-5) /hpf Ur Squamous Epith Cells <1 (0-4) /hpf Urine Bacteria Many H (None) /hpf Urine Mucus Rare H (None) /hpf Disposition Clinical Impression: Hypomagnesemia, Acute anxiety, UTI (urinary tract infection) Disposition: HOME SELF-CARE Instructions (If sedation given, give patient instructions): Generalized Anxiety Disorder (ED) Prescriptions: Cephalexin [Keflex] 500 mg PO Q12HR 5 Days #10 cap Is patient prescribed a controlled substance at d/c from ED?: No Referrals: Jonas Aguilera MD [Primary Care Provider] - 1-2 days
[2023-05-08] MEDS ORDERED: LORazepam 2 MG/ML INJ IV STA ×2 (15:11→17:11)
[2023-05-08 15:59] LABS: Basophils % (A) 0 %; Eosinophils # (A) 0.2 k/uL (0-0.7); Eosinophils % (A) 3 %; HCT 35.7 % (34.0-46.0); HGB 11.8 gm/dL (11.4-16.0); Lymphocytes # (A) 0.9 k/uL (1.0-4.8); Lymphocytes % (A) 18 %; MCH 32.6 pg (25.0-35.0); MCV 99.1 fL (80.0-100.0); Mean Platelet Volume 7.6; Monocytes # (A) 0.2 k/uL (0-1.0); Monocytes % (A) 4 %; Neutrophils # (A) 3.5 k/uL (1.3-7.7); Neutrophils % (A) 73 %; Platelet Count 153 k/uL (150-450); RBC 3.61 m/uL (3.80-5.40); WBC 4.8 k/uL (3.8-10.6)
[2023-05-08 16:33] LABS: ALT 26 U/L (4-34); AST 43 U/L (14-36); African American GFR (CKD) >90 (>60 ml/min/1.73 sqM); Albumin 2.9 g/dL (3.5-5.0); Alkaline Phosphatase 158 U/L (38-126); Anion Gap 8 mmol/L; Blood Urea Nitrogen 8 mg/dL (7-17); Calcium 8.1 mg/dL (8.4-10.2); Carbon Dioxide 25 mmol/L (22-30); Chloride 103 mmol/L (98-107); Glucose 78 mg/dL (74-99); Magnesium 1.4 mg/dL (1.6-2.3); Non-African American GFR(CKD) >90 (>60 ml/min/1.73 sqM); Potassium 3.8 mmol/L (3.5-5.1); Sodium 136 mmol/L (137-145); Total Bilirubin 0.5 mg/dL (0.2-1.3)
[2023-05-08 16:51] LABS: Appearance,Urine Clear (Clear); Bacteria,Urine Many /hpf; Bilirubin,Urine Negative (Negative); Blood,Urine Negative (Negative); Color,Urine Light Yellow; Glucose,Urine (UA) Negative (Negative); Ketones,Urine Negative (Negative); Leukocyte Esterase,Urine Trace (Negative); Mucus,Urine Rare /hpf; Nitrite,Urine Negative (Negative); PH, Urine 6.5 (5.0-8.0); Protein,Urine Negative (Negative); RBC,Urine 1 /hpf (0-5); Squamous Epithelial Cell,Urine <1 /hpf (0-4); Urobilinogen,Urine <2.0 mg/dL (<2.0); WBC,Urine 12 /hpf (0-5)
[2023-05-08] MEDS ORDERED: MAGNESIUM SULFATE-D5W PMX 1 GM in DEXTROSE/WATER 1 100ML.BAG IVPB ONE (16:59)
[2023-05-08] MEDS ORDERED: CEPHALEXIN 500 MG CAP PO STA (17:03)
[2023-05-08] MEDS ORDERED: MAGNESIUM OXIDE 400 MG TAB PO STA (17:03)
[2023-05-08 18:14] VITALS: BP 134/75; PULSE 89; RESP 22
== END 2023-05-08 18:16 | disposition home or self-care (01) ==
LOC: EC 14:43
DX: F41.9 Anxiety disorder, unspecified (principal); E83.42 Hypomagnesemia; N39.0 Urinary tract infection, site not specified; J44.9 Chronic obstructive pulmonary disease, unspecified; I11.0 Hypertensive heart disease with heart failure; I50.9 Heart failure, unspecified; M06.9 Rheumatoid arthritis, unspecified; E07.9 Disorder of thyroid, unspecified; Z87.891 Personal history of nicotine dependence; Z88.8 Allergy status to other drugs, medicaments and biological substances; Z79.890 Hormone replacement therapy; Z79.02 Long term (current) use of antithrombotics/antiplatelets; Z79.899 Other long term (current) drug therapy
CPT/HCPCS: 36415; 93005; 80053; 84443; 83735; 85025; 81001; 87086; 99284; 96374; 96375; J2060

== ENCOUNTER 2023-05-10 15:19 | Inpatient (IN) | payer BC ==
[2023-05-10] MEDS ORDERED: LORazepam 2 MG/ML INJ IV STA (16:47)
[2023-05-10 17:25] LABS: Basophils % (A) 1 %; Eosinophils # (A) 0.3 k/uL (0-0.7); Eosinophils % (A) 5 %; HCT 37.6 % (34.0-46.0); Lymphocytes # (A) 1.1 k/uL (1.0-4.8); Lymphocytes % (A) 22 %; MCH 33.3 pg (25.0-35.0); MCHC 34.6 g/dL (31.0-37.0); MCV 96.2 fL (80.0-100.0); Mean Platelet Volume 7.5; Monocytes # (A) 0.2 k/uL (0-1.0); Monocytes % (A) 4 %; Neutrophils # (A) 3.3 k/uL (1.3-7.7); Neutrophils % (A) 66 %; Platelet Count 182 k/uL (150-450); RBC 3.91 m/uL (3.80-5.40); RDW 13.8 % (11.5-15.5); WBC 4.9 k/uL (3.8-10.6)
[2023-05-10 17:35] LABS: ALT 26 U/L (4-34); AST 45 U/L (14-36); African American GFR (CKD) >90 (>60 ml/min/1.73 sqM); Albumin 3.2 g/dL (3.5-5.0); Alkaline Phosphatase 166 U/L (38-126); Anion Gap 7 mmol/L; Blood Urea Nitrogen 5 mg/dL (7-17); Calcium 8.9 mg/dL (8.4-10.2); Carbon Dioxide 26 mmol/L (22-30); Chloride 103 mmol/L (98-107); Glucose 117 mg/dL (74-99); Non-African American GFR(CKD) >90 (>60 ml/min/1.73 sqM); Potassium 4.2 mmol/L (3.5-5.1); Sodium 136 mmol/L (137-145); Total Bilirubin 0.5 mg/dL (0.2-1.3); Total Protein 6.7 g/dL (6.3-8.2)
[2023-05-10 17:44] LABS: NT-Pro-B-Type Natriuretic Pept 7660 pg/mL
--- NOTE | 2023-05-10 17:59 | XR ---
EXAMINATION TYPE: XR chest 2V DATE OF EXAM: 05/10/2023 5:25 PM COMPARISON: Chest radiographs from 09/26/2022 TECHNIQUE: XR chest 2V Frontal and lateral views of the chest. CLINICAL INDICATION:Female, 62 years old with history of cough; FINDINGS: Lungs/Pleura: Multifocal airspace opacities. No evidence of pneumothorax or pleural effusion. Pulmonary vascularity: Unremarkable. Heart/mediastinum: Cardiomediastinal silhouette is unremarkable. Musculoskeletal: No acute osseous pathology. IMPRESSION: Similar fibrotic changes of the lungs. Superimposed infection would be difficult to exclude.
[2023-05-10 18:37] LABS: Appearance,Urine Clear (Clear); Color,Urine Yellow; Glucose,Urine (UA) Negative (Negative); Ketones,Urine Negative (Negative); Protein,Urine Negative (Negative); Specific Gravity,Urine 1.015 (1.001-1.035)
[2023-05-10 18:38] LABS: Bilirubin,Urine Negative (Negative); Blood,Urine Negative (Negative); Leukocyte Esterase,Urine Negative (Negative); Nitrite,Urine Negative (Negative); Urobilinogen,Urine <0.2 mg/dL (<2.0)
[2023-05-10] MEDS ORDERED: NITROGLYCERIN OINT 1 INCH/GM PACKET TOPICAL STA (19:45)
[2023-05-10] MEDS ORDERED: FUROSEMIDE 10 MG/ML 2 ML VIAL IV STA (19:45)
[2023-05-10] MEDS ORDERED: diazePAM 5 MG TAB PO PRN (20:02)
[2023-05-10] MEDS ORDERED: POTASSIUM CHLORIDE ER 20 MEQ TAB.ER PO SCH (21:00)
[2023-05-10] MEDS ORDERED: ATORVASTATIN 80 MG TAB PO SCH (21:00)
[2023-05-10] MEDS: diazePAM 5 MG TAB PO PRN (21:46)
[2023-05-11] MEDS: PANTOPRAZOLE 40 MG TABLET PO SCH (06:23)
[2023-05-11] MEDS: LEVOTHYROXINE 75 MCG TAB PO SCH (06:23)
[2023-05-11] MEDS ORDERED: FENOFIBRATE 160 MG TAB PO SCH (09:00)
[2023-05-11] MEDS ORDERED: ASPIRIN 325 MG TAB PO SCH (09:00)
[2023-05-11] MEDS ORDERED: THIAMINE 100 MG TAB PO SCH (09:00)
[2023-05-11] MEDS ORDERED: CLOPIDOGREL 75 MG TAB PO SCH (09:00)
[2023-05-11] MEDS ORDERED: FUROSEMIDE 10 MG/ML 4 ML VIAL IV SCH (09:00)
[2023-05-11] MEDS: diazePAM 5 MG TAB PO PRN ×3 (09:29→22:17)
[2023-05-11] MEDS: FLUoxetine HCL 20 MG CAP PO SCH (09:29)
[2023-05-11] MEDS: PATIENT'S OWN (Cariprazine Hcl [Vraylar] 3 MG Capsule) PO SCH (09:34)
[2023-05-11] MEDS ORDERED: diazePAM 5 MG TAB PO PRN (11:50)
[2023-05-11] MEDS ORDERED: IPRATROPIUM-ALBUTEROL 3 ML NEB INHALATION PRN (11:50)
[2023-05-11 11:54] LABS: Glucose,Whole Blood 82 mg/dL (70-110)
[2023-05-11] MEDS ORDERED: AZITHROMYCIN 250 MG TAB PO SCH (12:00)
--- NOTE | 2023-05-11 12:00 | P.HPIM ---
History of Present Illness Patient is a pleasant 62-year-old female came in, and cough with whitish sputum production appears to be an antibiotic ceftezolin and azithromycin as an outpatient. Does have history of COPD also complaining of shortness of breath denied any clear orthopnea or paroxysmal nocturnal dyspnea patient had a chest x-ray which showed pulmonary fibrotic changes doesn't have any pleural effusions not clear whether patient has CHF chest x-rays was reviewed by me. Patient has elevated the BNP of 7800 although patient clinically doesn't have any pedal edema no appreciable JVD. Her previous BNP in 2021 is around 400. Patient had a normal ejection fraction 2021. Patient's serum sodium is 136 patient was started on 40 mg IV Lasix from ER twice a day. My patient has mild troponin elevation of around 0.05, EKG did not show any acute ST-T wave changes REVIEW OF SYSTEMS: CONSTITUTIONAL: No fever, no malaise, no fatigue. HEENT: No recent visual problems or hearing problems. Denied any sore throat. CARDIOVASCULAR: No chest pain, orthopnea, PND, no palpitations, no syncope. PULMONARY: No shortness of breath, no cough, no hemoptysis. GASTROINTESTINAL: No diarrhea, no nausea, no vomiting, no abdominal pain. NEUROLOGICAL: No headaches, no weakness, no numbness. HEMATOLOGICAL: Denies any bleeding or petechiae. GENITOURINARY: Denies any burning micturition, frequency, or urgency. MUSCULOSKELETAL/RHEUMATOLOGICAL: Denies any joint pain, swelling, or any muscle pain. ENDOCRINE: Denies any polyuria or polydipsia. The rest of the 14-point review of systems is negative. PHYSICAL EXAMINATION: GENERAL: The patient is alert and oriented x3, not in any acute distress. Well developed, well nourished. Patient has benign essential tremor HEENT: Pupils are round and equally reacting to light. EOMI. No scleral icterus. No conjunctival pallor. Normocephalic, atraumatic. No pharyngeal erythema. No thyromegaly. CARDIOVASCULAR: S1 and S2 present. No murmurs, rubs, or gallops. PULMONARY: Chest is clear to auscultation, no wheezing or crackles. ABDOMEN: Soft, nontender, nondistended, normoactive bowel sounds. No palpable organomegaly. MUSCULOSKELETAL: No joint swelling or deformity. EXTREMITIES: No cyanosis, clubbing, or pedal edema. NEUROLOGICAL: Gross neurological examination did not reveal any focal deficits. SKIN: No rashes. Assessment and plan -Shortness of breath: Patient may have chronic diastolic dysfunction with mild acute exacerbation. We'll cut down the IV Lasix dose to 20 mg twice a day of monitoring overnight. -History of pulmonary fibrosis -Mild troponin elevation secondary to congestive heart failure -Bronchitis azithromycin will be continued no evidence of pneumonia several as well as will be discontinued -Benign essential tremor for which patient is on Requip and primidone which will be continued -Hypothyroidism -History of rheumatoid arthritis -History of COPD quit smoking about 10 years ago not in COPD exacerbation -DVT prophylaxis Lovenox Past Medical History Past Medical History: Heart Failure, COPD, Hypertension, Rheumatoid Arthritis (RA), Thyroid Disorder History of Any Multi-Drug Resistant Organisms: None Reported Past Surgical History: No Surgical Hx Reported Past Anesthesia/Blood Transfusion Reactions: No Reported Reaction Past Psychological History: Anxiety, Panic Disorder Additional Psychological History / Comment(s): pt and pts state the pt deals with anxiety and panic attacks Smoking Status: Former smoker Past Alcohol Use History: None Reported Past Drug Use History: None Reported Medications and Allergies Home Medications Medication Instructions Recorded Confirmed Type Atorvastatin [Lipitor] 80 mg PO HS 09/26/22 05/10/23 History Cariprazine HCl [Vraylar] 3 mg PO DAILY 09/26/22 05/10/23 History Ergocalciferol (Vitamin D2) 1,250 mcg PO WE 09/26/22 05/10/23 History [Drisdol (50,000 Iu)] Folic Acid 1 mg PO DAILY 09/26/22 05/10/23 History Levothyroxine Sodium [Synthroid] 75 mcg PO DAILY 09/26/22 05/10/23 History Cephalexin [Keflex] 500 mg PO Q12HR 5 Days #10 cap 05/08/23 05/10/23 Rx Azithromycin [Zithromax Z Pack] See Taper PO DIRECTED 05/10/23 05/10/23 History FLUoxetine HCL [PROzac] 40 mg PO DAILY 05/10/23 05/10/23 History Furosemide [Lasix] 40 mg PO DAILY 05/10/23 05/10/23 History HYDROcodone/APAP 10-325MG [[place] 1 tab PO QID PRN 05/10/23 05/10/23 History 10-325] Ipratropium-Albuterol Nebulize 3 ml INHALATION RT-QID PRN 05/10/23 05/10/23 History [Duoneb 0.5 mg-3 mg/3 ml Soln] Nabumetone [Relafen] 500 mg PO BID 05/10/23 05/10/23 History Potassium Chloride ER [K-Dur 20] 20 meq PO Q48H 05/10/23 05/10/23 History Primidone [Mysoline] 50 mg PO DAILY 05/10/23 05/10/23 History diazePAM [Valium] 5 mg PO TID PRN 05/10/23 05/10/23 History levETIRAcetam [Keppra] 1,000 mg PO BID 05/10/23 05/10/23 History rOPINIRole HCL [Requip] 0.25 mg PO BID 05/10/23 05/10/23 History Allergies Allergy/AdvReac Type Severity Reaction Status Date / Time adalimumab [From Humira] Allergy Anaphylaxis Verified 05/10/23 15:30 gabapentin Allergy Chest Pain Verified 05/10/23 15:30 Physical Exam Vitals: Vital Signs Temp Pulse Pulse Resp BP BP Pulse Ox 05/11/23 08:00 98.4 F 75 16 126/77 96 05/11/23 04:00 97.9 F 81 16 126/72 96 05/11/23 01:29 20 05/11/23 00:00 97.6 F 88 20 122/77 98 05/10/23 22:20 97.6 F 90 24 133/83 100 05/10/23 21:00 87 18 125/80 99 05/10/23 18:08 93 L 05/10/23 18:00 102 H 18 122/68 96 05/10/23 17:09 102 H 18 105/69 92 L 05/10/23 15:28 98.5 F 109 H 26 H 118/86 92 L Intake and Output 05/10/23 05/11/23 05/11/23 22:59 06:59 14:59 Output Total 300 600 Balance -300 -600 Output: Urine 300 600 Other: Voiding Method External Catheter # Voids 1 Weight 49.442 kg 44 kg Results CBC & Chem 7: 05/10/23 17:07 05/10/23 17:07 Labs: Abnormal Lab Results - Last 24 Hours (Table) 07/28/23 07/28/23 07/28/23 Range/Units 17:07 17:07 20:35 Sodium 136 L (137-145) mmol/L BUN 5 L (7-17) mg/dL Glucose 117 H (74-99) mg/dL AST 45 H (14-36) U/L Alkaline Phosphatase 166 H (38-126) U/L Troponin I 0.048 H* 0.058 H* (0.000-0.034) ng/mL Albumin 3.2 L (3.5-5.0) g/dL 05/10/23 Range/Units 23:37 Sodium (137-145) mmol/L BUN (7-17) mg/dL Glucose (74-99) mg/dL AST (14-36) U/L Alkaline Phosphatase (38-126) U/L Troponin I 0.053 H* (0.000-0.034) ng/mL Albumin (3.5-5.0) g/dL Thrombosis Risk Factor Assmnt - Choose All That Apply Any of the Below Risk Factors Present?: Yes Each Factor Represents 1 point: Abnormal pulmonary function (COPD) Each Risk Factor Represents 2 Points: Age 61-74 years Thrombosis Risk Factor Assessment Total Risk Factor Score: 3 Thrombosis Risk Factor Assessment Level: Moderate Risk
[2023-05-11] MEDS: PRIMIDONE 50 MG TAB PO SCH (12:52)
[2023-05-11] MEDS: HYDROcodone/APAP 10-325MG 1 EACH TAB PO PRN ×2 (14:03→22:17)
--- NOTE | 2023-05-11 14:13 | CA ---
Transthoracic Echo Report Name: Mary Navarro Age: 62 Gender: F : 1960 Exam Date: 05/11/2023 09:57 Exam Location: [facility] [facility] Ht (in): 62 Wt (lb): 109 Ordering Physician: Wilner Kapoor MD Attending/Referring Phys: Emelia Darby;[id number] [employer]argo Agent Viky Pierce RDCS Procedure CPT: Indications: chf exacerbation Cardiac Hx: Technical Quality: Fair Contrast 1: Total Dose (mL): Contrast 2: Total Dose (mL): MEASUREMENTS (Male / Female) Normal Values 2D ECHO LV Diastolic Diameter PLAX 3.4 cm 4.2 - 5.9 / 3.9 - 5.3 cm LV Systolic Diameter PLAX 2.4 cm IVS Diastolic Thickness 1.3 cm 0.6 - 1.0 / 0.6 - 0.9 cm LVPW Diastolic Thickness 1.3 cm 0.6 - 1.0 / 0.6 - 0.9 cm LV Relative Wall Thickness 0.8 RV Internal Dim ED PLAX 3.2 cm LA Volume 25.3 cm??? 18 - 58 / 22 - 52 cm??? M-MODE Aortic Root Diameter MM 2.6 cm LA Systolic Diameter MM 2.8 cm LA Ao Ratio MM 1.1 AV Cusp Separation MM 2.0 cm DOPPLER AV Peak Velocity 102.8 cm/s AV Peak Gradient 4.2 mmHg AV Mean Velocity 72.8 cm/s AV Mean Gradient 2.3 mmHg AV Velocity Time Integral 15.0 cm LVOT Peak Velocity 74.0 cm/s LVOT Peak Gradient 2.2 mmHg MV Area PHT 5.7 cm??? Mitral E Point Velocity 48.2 cm/s Mitral A Point Velocity 93.0 cm/s Mitral E to A Ratio 0.5 MV Deceleration Time 134.0 ms MV E' Velocity 5.2 cm/s Mitral E to MV E' Ratio 9.3 TR Peak Velocity 294.5 cm/s TR Peak Gradient 34.7 mmHg Right Ventricular Systolic Press 38.8 mmHg FINDINGS Left Ventricle Normal LV szie. Mild concetric LVH. Left ventricular ejection fraction is estimated at 45-50 %. Mid anterior wall hypokinesia. Grade I Diastolic dysfunction. Right Ventricle Normal right ventricular size and function. Mild pulmonary hypertension. Right Atrium Normal right atrial size. Left Atrium Normal left atrial size. Mitral Valve Mild mitral annular calcification. Mild mitral regurgitation. Aortic Valve No aortic valve stenosis or regurgitation. Trileaflet aortic valve. Tricuspid Valve Structurally normal tricuspid valve. Mild tricuspid regurgitation. Pulmonic Valve Trace pulmonic regurgitation. Pericardium No pericardial effusion. Aorta Normal size aortic root and proximal ascending aorta. CONCLUSIONS Normal LV size. Mild concetric LVH Midly reduced LV systolic function. LVEF 45-50% Mid anteriror wall hypokinesia Grade I Diastolic dysfunction No significant valve dysfunction Previewed by: Dr Sohail Johnson (Electronically Signed) Final Date: 11 May 2023 14:12
[2023-05-11 16:22] LABS: Glucose,Whole Blood 100 mg/dL (70-110)
[2023-05-11] MEDS: METOPROLOL SUCCINATE (ER) 50 MG TAB.ER.24H PO SCH (16:43)
[2023-05-11] MEDS: lisinopriL 5 MG TAB PO SCH (16:43)
[2023-05-11] MEDS: SPIRONOLACTONE 25 MG TAB PO SCH (16:43)
[2023-05-11 20:11] LABS: Glucose,Whole Blood 115 mg/dL (70-110)
[2023-05-11] MEDS: NITROGLYCERIN OINT 1 INCH/GM PACKET TOPICAL SCH (21:56)
[2023-05-11] MEDS: FUROSEMIDE 10 MG/ML 2 ML VIAL IV SCH (21:57)
[2023-05-11] MEDS: levETIRAcetam 500 MG TAB PO SCH (21:57)
--- NOTE | 2023-05-11 22:15 | P.CRDCN ---
History of Present Illness Consult date: 05/11/23 History of present illness: ASSESSMENT Community Aquired Pneumonia Mild Acute heart failure with preserved ejection fraction exacerbation History of pulmonary fibrosis Flat and mild elevation of troponin. Unlikely ACS History of rheumatoid arthritis History of COPD PLAN Continue aspirin and atorvastatin Not much swelling and no JVD. Clinically not fluids overloaded. Obtain echocardiogram Further recommendations to follow HISTORY OF PRESENTING ILLNESS Patient is a 63-year-old female who presented to the ER with chief complaints of worsening cough and sputum production. She received outpatient antibiotics which did not seem to help her therefore she presented to the hospital. The patient is somewhat a poor historian and appears very anxious. She is more concerned about her tremors. On admission her BNP was elevated in the range of 7800. In 2200 BNP was around 400. Her troponins are minimally elevated and has a flat pattern. EKG shows sinus rhythm with no significant ST-T wave changes. Chest x-ray shows mild congestion. REVIEW OF SYSTEMS At the time of my exam: CONSTITUTIONAL: Denies fever or chills. Has tremors CARDIOVASCULAR: has shortness of breath, orthopnea, PND or palpitations. RESPIRATORY: has cough. GASTROINTESTINAL: Denies abdominal pain, diarrhea, constipation, nausea or vomiting. MUSCULOSKELETAL: has myalgias. NEUROLOGIC: Denies numbness, tingling or weakness. ENDOCRINE: Denies fatigue, weight change, polydipsia or polyurina. GENITOURINARY: Denies burning, hematuria or urgency with micturation. HEMATOLOGIC: Denies history of anemia or bleeding. PHYSICAL EXAMINATION Vital signs reviewed. CONSTITUTIONAL: No apparent distress. HEENT: Head is normocephalic. Pupils are equal, round. Sclerae anicteric. Mucous membranes of the mouth are moist. No JVD. No carotid bruit. CHEST EXAMINATION: mild crackles and ronchi in b/l lung mccray HEART EXAMINATION: Regular rate and rhythm. S1, S2 heard. No murmurs, gallops or rub. ABDOMEN: Soft, nontender. Positive bowel sounds. EXTREMITIES: 2+ peripheral pulses, no lower extremity edema and no calf tenderness. NEUROLOGIC EXAMINATION: Patient is awake, alert and oriented x3. Past Medical History Past Medical History: Heart Failure, COPD, Hypertension, Rheumatoid Arthritis (RA), Thyroid Disorder History of Any Multi-Drug Resistant Organisms: None Reported Past Surgical History: No Surgical Hx Reported Past Anesthesia/Blood Transfusion Reactions: No Reported Reaction Past Psychological History: Anxiety, Panic Disorder Additional Psychological History / Comment(s): pt and pts state the pt deals with anxiety and panic attacks Smoking Status: Former smoker Past Alcohol Use History: None Reported Past Drug Use History: None Reported Medications and Allergies Home Medications Medication Instructions Recorded Confirmed Type Atorvastatin [Lipitor] 80 mg PO HS 09/26/22 05/10/23 History Cariprazine HCl [Vraylar] 3 mg PO DAILY 09/26/22 05/10/23 History Ergocalciferol (Vitamin D2) 1,250 mcg PO WE 09/26/22 05/10/23 History [Drisdol (50,000 Iu)] Folic Acid 1 mg PO DAILY 09/26/22 05/10/23 History Levothyroxine Sodium [Synthroid] 75 mcg PO DAILY 09/26/22 05/10/23 History Cephalexin [Keflex] 500 mg PO Q12HR 5 Days #10 cap 05/08/23 05/10/23 Rx Azithromycin [Zithromax Z Pack] See Taper PO DIRECTED 05/10/23 05/10/23 History FLUoxetine HCL [PROzac] 40 mg PO DAILY 05/10/23 05/10/23 History Furosemide [Lasix] 40 mg PO DAILY 05/10/23 05/10/23 History HYDROcodone/APAP 10-325MG [[place] 1 tab PO QID PRN 05/10/23 05/10/23 History 10-325] Ipratropium-Albuterol Nebulize 3 ml INHALATION RT-QID PRN 05/10/23 05/10/23 History [Duoneb 0.5 mg-3 mg/3 ml Soln] Nabumetone [Relafen] 500 mg PO BID 05/10/23 05/10/23 History Potassium Chloride ER [K-Dur 20] 20 meq PO Q48H 05/10/23 05/10/23 History Primidone [Mysoline] 50 mg PO DAILY 05/10/23 05/10/23 History diazePAM [Valium] 5 mg PO TID PRN 05/10/23 05/10/23 History levETIRAcetam [Keppra] 1,000 mg PO BID 05/10/23 05/10/23 History rOPINIRole HCL [Requip] 0.25 mg PO BID 05/10/23 05/10/23 History Allergies Allergy/AdvReac Type Severity Reaction Status Date / Time adalimumab [From Humira] Allergy Anaphylaxis Verified 05/10/23 15:30 gabapentin Allergy Chest Pain Verified 05/10/23 15:30 Physical Exam Vitals: Vital Signs Temp Pulse Resp BP Pulse Ox 05/11/23 20:00 89 18 05/11/23 16:00 98 18 123/84 93 L 05/11/23 13:27 102 H 18 05/11/23 12:00 102 H 18 126/81 90 L 05/11/23 08:00 98.4 F 75 16 126/77 96 05/11/23 04:00 97.9 F 81 16 126/72 96 05/11/23 01:29 20 05/11/23 00:00 97.6 F 88 20 122/77 98 05/10/23 22:20 97.6 F 90 24 133/83 100 Intake and Output 05/11/23 05/11/23 05/11/23 06:59 14:59 22:59 Intake Total 240 120 Output Total 300 600 350 Balance -300 -360 -230 Intake: Oral 240 120 Output: Urine 300 600 350 Other: Voiding Method External Catheter External Catheter # Voids 1 1 # Bowel Movements 1 Weight 44 kg 61.235 kg Results 05/10/23 17:07 05/10/23 17:07 Cardiac Enzymes 05/10/23 Range/Units 23:37 Troponin I 0.053 H* (0.000-0.034) ng/mL Current Medications Generic Name Dose Route Start Last Admin Trade Name Freq PRN Reason Stop Dose Admin Hydrocodone Bitart/Acetaminophen 1 each 05/11/23 11:50 05/11/23 14:03 Hydrocodone/Apap 10-325mg 1 Each Tab PO 1 each QID PRN Administration Pain Albuterol/Ipratropium 3 ml 05/11/23 11:50 Ipratropium-Albuterol 3 Ml Neb INHALATION RT-QID PRN Shortness Of Breath Aspirin 81 mg 05/12/23 09:00 Aspirin 81 Mg PO DAILY JOSE Atorvastatin Calcium 40 mg 05/12/23 09:00 Atorvastatin 40 Mg Tab PO DAILY JOSE Diazepam 5 mg 05/10/23 20:53 05/11/23 14:03 Diazepam 5 Mg Tab PO 5 mg TID PRN Administration Anxiety Enoxaparin Sodium 40 mg 05/12/23 09:00 Enoxaparin 40 Mg/0.4 Ml Syringe SQ DAILY [facility] Ergocalciferol 1,250 mcg 05/15/23 09:00 Ergocalciferol 1,250 Mcg (50,000 Iu) Capsule PO WE [facility] Fluoxetine HCl 40 mg 05/11/23 09:00 05/11/23 09:29 Fluoxetine Hcl 20 Mg Cap PO 40 mg DAILY JOSE Administration Folic Acid 1 mg 05/12/23 09:00 Folic Acid 1 Mg Tab PO DAILY [facility] Furosemide 20 mg 05/11/23 21:00 05/11/23 21:57 Furosemide 10 Mg/Ml 2 Ml Vial IV 20 mg Q12HR JOSE Administration Levetiracetam 1,000 mg 05/11/23 21:00 05/11/23 21:57 Levetiracetam 500 Mg Tab PO 1,000 mg BID JOSE Administration Levothyroxine Sodium 75 mcg 05/11/23 06:30 05/11/23 06:23 Levothyroxine 75 Mcg Tab PO 75 mcg 0630 [facility] Administration Lisinopril 5 mg 05/11/23 14:15 05/11/23 16:43 Lisinopril 5 Mg Tab PO 5 mg DAILY [facility] Administration Meloxicam 15 mg 05/12/23 09:00 Meloxicam 7.5 Mg Tab PO DAILY [facility] Metoprolol Succinate 50 mg 05/11/23 14:15 05/11/23 16:43 Metoprolol Succinate (Er) 50 Mg Tab.Er.24h PO 50 mg DAILY [facility] Administration Nitroglycerin 0.5 inch 05/11/23 22:00 05/11/23 21:56 Nitroglycerin Oint 1 Inch/Gm Packet TOPICAL 0.5 inch QID [facility] Administration Patient's Own ( 3 mg 05/11/23 09:00 05/11/23 09:34 Cariprazine Hcl [ PO Not Given Vraylar] 3 Mg DAILY [facility] Capsule) Pantoprazole Sodium 40 mg 05/11/23 07:30 05/11/23 06:23 Pantoprazole 40 Mg Tablet PO 40 mg AC-[id number] JOSE Administration Primidone 50 mg 05/11/23 12:00 05/11/23 12:52 Primidone 50 Mg Tab PO 50 mg DAILY [facility] Administration Ropinirole HCl 0.25 mg 05/11/23 12:00 05/11/23 21:57 Ropinirole Hcl 0.25 Mg Tab PO 0.25 mg BID JOSE Administration Sodium Chloride 10 ml 05/10/23 21:00 05/11/23 22:01 Sodium Chloride 0.9% Flush 10 Ml Syringe IV 10 ml BID JOSE Administration Spironolactone 25 mg 05/11/23 14:15 05/11/23 16:43 Spironolactone 25 Mg Tab PO 25 mg DAILY JOSE Administration Intake and Output 05/11/23 05/11/23 05/11/23 06:59 14:59 22:59 Intake Total 240 120 Output Total 300 600 350 Balance -300 -360 -230 Intake: Oral 240 120 Output: Urine 300 600 350 Other: Voiding Method External Catheter External Catheter # Voids 1 1 # Bowel Movements 1 Weight 44 kg 61.235 kg Patient Weight 05/12/23 06:59 Weight 61.235 kg 05/10/23 17:07 05/10/23 17:07
[2023-05-12 06:07] LABS: Glucose,Whole Blood 88 mg/dL (70-110)
[2023-05-12] MEDS: PANTOPRAZOLE 40 MG TABLET PO SCH (07:01)
[2023-05-12] MEDS: LEVOTHYROXINE 75 MCG TAB PO SCH (07:01)
[2023-05-12 08:19] LABS: African American GFR (CKD) >90 (>60 ml/min/1.73 sqM); Anion Gap 8 mmol/L; Blood Urea Nitrogen 16 mg/dL (7-17); Calcium 8.9 mg/dL (8.4-10.2); Carbon Dioxide 30 mmol/L (22-30); Chloride 96 mmol/L (98-107); Glucose 86 mg/dL (74-99); Magnesium 1.7 mg/dL (1.6-2.3); Non-African American GFR(CKD) >90 (>60 ml/min/1.73 sqM); Potassium 4.1 mmol/L (3.5-5.1); Sodium 134 mmol/L (137-145)
[2023-05-12] MEDS: ATORVASTATIN 40 MG TAB PO SCH (08:35)
[2023-05-12] MEDS: FUROSEMIDE 10 MG/ML 2 ML VIAL IV SCH ×2 (08:35→22:00)
[2023-05-12] MEDS: ASPIRIN 81 MG PO SCH (08:35)
[2023-05-12] MEDS: levETIRAcetam 500 MG TAB PO SCH ×2 (08:35→21:57)
[2023-05-12] MEDS: FOLIC ACID 1 MG TAB PO SCH (08:35)
[2023-05-12] MEDS: diazePAM 5 MG TAB PO PRN ×2 (08:35→16:00)
[2023-05-12] MEDS: MELOXICAM 7.5 MG TAB PO SCH (08:36)
[2023-05-12] MEDS: lisinopriL 5 MG TAB PO SCH (08:36)
[2023-05-12] MEDS: METOPROLOL SUCCINATE (ER) 50 MG TAB.ER.24H PO SCH (08:36)
[2023-05-12] MEDS: HYDROcodone/APAP 10-325MG 1 EACH TAB PO PRN ×3 (08:36→21:57)
[2023-05-12] MEDS: SPIRONOLACTONE 25 MG TAB PO SCH (08:37)
[2023-05-12] MEDS: NITROGLYCERIN OINT 1 INCH/GM PACKET TOPICAL SCH ×4 (08:37→21:58)
[2023-05-12] MEDS: ENOXAPARIN 40 MG/0.4 ML SYRINGE SQ SCH (08:37)
[2023-05-12] MEDS: PATIENT'S OWN (Cariprazine Hcl [Vraylar] 3 MG Capsule) PO SCH (08:37)
[2023-05-12] MEDS: FLUoxetine HCL 20 MG CAP PO SCH (08:37)
[2023-05-12] MEDS: PRIMIDONE 50 MG TAB PO SCH (08:37)
[2023-05-12] MEDS ORDERED: FLUoxetine HCL 20 MG CAP PO SCH (09:00)
[2023-05-12] MEDS ORDERED: POTASSIUM CHLORIDE ER 20 MEQ TAB.ER PO SCH (09:00)
[2023-05-12] MEDS ORDERED: MAGNESIUM SULFATE-D5W PMX 1 GM in DEXTROSE/WATER 1 100ML.BAG IVPB ONE (12:30)
--- NOTE | 2023-05-12 14:53 | P.PN ---
Subjective Progress Note Date: 05/12/23 Patient is a pleasant 62-year-old female came in, and cough with whitish sputum production appears to be an antibiotic ceftezolin and azithromycin as an outpatient. Does have history of COPD also complaining of shortness of breath denied any clear orthopnea or paroxysmal nocturnal dyspnea patient had a chest x-ray which showed pulmonary fibrotic changes doesn't have any pleural effusions not clear whether patient has CHF chest x-rays was reviewed by me. Patient has elevated the BNP of 7800 although patient clinically doesn't have any pedal edema no appreciable JVD. Her previous BNP in 2021 is around 400. Patient had a normal ejection fraction 2021. Patient's serum sodium is [address] arted on 40 mg IV Lasix from ER twice a day. My patient has mild troponin elevation of around 0.05, EKG did not show any acute ST-T wave changes 05/12/2023 Patient is evaluated today resting in bed with him at the bedside, continues to report some weakness and mild shortness of breath. Patient does have chronic respiratory failure on 2 L of nasal cannula which continues at this time. She has essential tremor which really feels is worse at this time but reports that she has not been sleeping well at night over the last 4-5 days and recommend medication to palpation fall sleep and to not wake patient for vital signs at midnight if patient is sleeping. An echocardiogram was done which reveals an ejection fraction of 45-50% with grade 1 diastolic dysfunction and mild anterior wall hypokinesis she remains on 20 mg of IV Lasix every 12 hours and cardiology is following closely. Patient is having adequate urine output and is euvolemic at this time. Review of Systems Constitutional: Reports fatigue denied any fever. Cardio vascular: denied any chest pain, palpitations Gastrointestinal: denied any nausea, vomiting, diarrhea Pulmonary: Reports shortness of breath cough Neurologic denied any new focal deficits, reports weakness All inpatient medications were reviewed and appropriate changes in these medications as dictated in the interval history and assessment and plan. PHYSICAL EXAMINATION: GENERAL: The patient is alert and oriented x3, not in any acute distress. Well developed, well nourished. Patient has benign essential tremor, pale. HEENT: Pupils are round and equally reacting to light. EOMI. No scleral icterus. No conjunctival pallor. Normocephalic, atraumatic. No pharyngeal erythema. No thyromegaly. CARDIOVASCULAR: S1 and S2 present. No murmurs, rubs, or gallops. PULMONARY: Chest is diminished ABDOMEN: Soft, nontender, nondistended, normoactive bowel sounds. No palpable organomegaly. MUSCULOSKELETAL: No joint swelling or deformity. EXTREMITIES: No cyanosis, clubbing, or pedal edema. NEUROLOGICAL: Gross neurological examination did not reveal any focal deficits. Tremor of the head.neck,thoracic region and upper extremities noted, SKIN: No rashes. Assessment and plan -Shortness of breath likely due to acute CHF diastolic dysfunction with EF 45- 50%; Continue IV lasix and plan to transition to oral lasix tomorrow -History of pulmonary fibrosis -Mild troponin elevation secondary to congestive heart failure -Bronchitis azithromycin will be continued no evidence of pneumonia on imaging. Procalcitonin level is pending if negative antibiotics will be stopped and recommend to continue as needed updrafts -Chronic hypoxic respiratory failure on 2L nasal cannula outpatient -Benign essential tremor for which patient is on Requip and primidone which will be continued -Hypothyroidism -History of rheumatoid arthritis -History of COPD quit smoking about 10 years ago not in COPD exacerbation -Insomnia patient will be started on melatonin at HS and okay to not wake up patient up for midnight vitals if patient is sleeping well. -DVT prophylaxis Lovenox -GI prophyalxis Protonix Plan Continue IV lasix and transition to oral sex in the morning, cardiology is following closely for further recommendations. Patient be offered melatonin or HSM recommended to not wake patient will sleeping through the night. PT OT has been consulted for discharge planning. The impression and plan of care has been dictated by Cari Milian, Nurse Practitioner as directed. Dr. Kelsi MD I have performed a history and physical examination and medical decision making of this patient, discussed the same with the dictator, and agree with the dictators assessment and plan as written, documented as a scribe. Based on total visit time, I have performed more than 50% of this visit. Objective - Vital Signs Vital signs: Vital Signs Temp 98.3 F 05/12/23 08:00 Pulse 76 05/12/23 14:00 Resp 18 05/12/23 14:00 BP 107/64 05/12/23 08:00 Pulse Ox 94 L 05/12/23 08:28 FiO2 Intake & Output 05/11/23 05/12/23 05/12/23 18:59 06:59 18:59 Intake Total 360 60 180 Output Total 950 300 300 Balance -590 -240 -120 Weight 61.235 kg 56.2 kg Intake: Oral 360 60 180 Output: Urine 950 300 300 Other: Voiding Method External Catheter # Voids 1 # Bowel Movements 1 1 - Labs CBC & Chem 7: 05/10/23 17:07 05/12/23 07:17 Labs: Abnormal Lab Results - Last 24 Hours (Table) 05/11/23 05/12/23 Range/Units 20:05 07:17 Sodium 134 L (137-145) mmol/L Chloride 96 L (98-107) mmol/L POC Glucose (mg/dL) 115 H (70-110) mg/dL Assessment and Plan Time with Patient: Less than 30
--- NOTE | 2023-05-12 15:44 | P.PN ---
Subjective Progress Note Date: 05/12/23 Subjective: Patient is seen and examined at bedside this a.m. She reports her breathing is better but is concerned about her shaking. She reports that she is having poor sleep and value was not helping. ASSESSMENT Community Aquired Pneumonia Mild Acute heart failure with preserved ejection fraction exacerbation History of pulmonary fibrosis Flat and mild elevation of troponin. Unlikely ACS History of rheumatoid arthritis History of COPD PLAN Echocardiogram reviewed. It shows an EF of around 45-50%. This atypical septal motion with some mid anteroseptal wall hypokinesia noticed. Would recommend outpatient nuclear stress test for the patient. Continue aspirin and atorvastatin Not much swelling and no JVD. Clinically not fluids overloaded. Continue aspirin 81 mg, atorvastatin 40 mg daily. Continue metoprolol succinate 50 mg daily. Was started on Aldactone 25 mg daily on this admission due to mildly reduced ejection fraction Would recommend reducing Lasix to 20 mg daily at the time of discharge. PHYSICAL EXAMINATION Vital signs reviewed. CONSTITUTIONAL: No apparent distress. HEENT: Head is normocephalic. Pupils are equal, round. Sclerae anicteric. Mucous membranes of the mouth are moist. No JVD. No carotid bruit. CHEST EXAMINATION: mild crackles and ronchi in b/l lung mccray HEART EXAMINATION: Regular rate and rhythm. S1, S2 heard. No murmurs, gallops or rub. ABDOMEN: Soft, nontender. Positive bowel sounds. EXTREMITIES: 2+ peripheral pulses, no lower extremity edema and no calf tenderness. NEUROLOGIC EXAMINATION: Patient is awake, alert and oriented x3. Objective - Vital Signs Vital signs: Vital Signs Temp 98.3 F 05/12/23 08:00 Pulse 76 05/12/23 14:00 Resp 18 05/12/23 14:00 BP 107/64 05/12/23 08:00 Pulse Ox 94 L 05/12/23 08:28 FiO2 Intake & Output 05/11/23 05/12/23 05/12/23 18:59 06:59 18:59 Intake Total 360 60 180 Output Total 950 300 300 Balance -590 -240 -120 Weight 61.235 kg 56.2 kg Intake: Oral 360 60 180 Output: Urine 950 300 300 Other: Voiding Method External Catheter # Voids 1 # Bowel Movements 1 1 - Labs CBC & Chem 7: 05/10/23 17:07 05/12/23 07:17 Labs: Abnormal Lab Results - Last 24 Hours (Table) 07/29/23 07/30/23 Range/Units 20:05 07:17 Sodium 134 L (137-145) mmol/L Chloride 96 L (98-107) mmol/L POC Glucose (mg/dL) 115 H (70-110) mg/dL
[2023-05-12] MEDS: AZITHROMYCIN 250 MG TAB PO SCH (16:03)
[2023-05-12] MEDS: MELATONIN 5 MG TABLET PO SCH (21:58)
[2023-05-13] MEDS: LEVOTHYROXINE 75 MCG TAB PO SCH (06:08)
[2023-05-13] MEDS: PANTOPRAZOLE 40 MG TABLET PO SCH (06:08)
[2023-05-13] MEDS: PRIMIDONE 50 MG TAB PO SCH (09:28)
[2023-05-13] MEDS: ASPIRIN 81 MG PO SCH (09:28)
[2023-05-13] MEDS: FLUoxetine HCL 20 MG CAP PO SCH (09:28)
[2023-05-13] MEDS: SPIRONOLACTONE 25 MG TAB PO SCH (09:29)
[2023-05-13] MEDS: METOPROLOL SUCCINATE (ER) 50 MG TAB.ER.24H PO SCH (09:29)
[2023-05-13] MEDS: MELOXICAM 7.5 MG TAB PO SCH (09:29)
[2023-05-13] MEDS: FUROSEMIDE 20 MG TAB PO SCH ×2 (09:29→18:11)
[2023-05-13] MEDS: ATORVASTATIN 40 MG TAB PO SCH (09:29)
[2023-05-13] MEDS: FOLIC ACID 1 MG TAB PO SCH (09:29)
[2023-05-13] MEDS: lisinopriL 5 MG TAB PO SCH (09:30)
[2023-05-13] MEDS: levETIRAcetam 500 MG TAB PO SCH ×2 (09:30→20:29)
[2023-05-13] MEDS: PATIENT'S OWN (Cariprazine Hcl [Vraylar] 3 MG Capsule) PO SCH (09:30)
[2023-05-13] MEDS: ENOXAPARIN 40 MG/0.4 ML SYRINGE SQ SCH (09:30)
[2023-05-13] MEDS: diazePAM 5 MG TAB PO PRN (09:30)
[2023-05-13] MEDS: NITROGLYCERIN OINT 1 INCH/GM PACKET TOPICAL SCH ×4 (09:31→20:29)
--- NOTE | 2023-05-13 10:13 | P.PN ---
Subjective Progress Note Date: 05/13/23 HISTORY OF PRESENTING ILLNESS Patient is a 63-year-old female who presented to the ER with chief complaints of worsening cough and sputum production. She received outpatient antibiotics which did not seem to help her therefore she presented to the hospital. The patient is somewhat a poor historian and appears very anxious. She is more concerned about her tremors. On admission her BNP was elevated in the range of 7800. In 0 BNP was around 400. Her troponins are minimally elevated and has a flat pattern. EKG shows sinus rhythm with no significant ST-T wave changes. Chest x-ray shows mild congestion. Subjective: Patient is seen and examined at bedside this a.m. She reports her breathing is better but is concerned about her shaking. She reports that she is having poor sleep and value was not helping. 05/13 Patient is seen today in follow-up she complains of feeling congested in her chest. No cough. No fever or chills. Patient is being treated for pneumonia. She states that she sometimes feels her heart shaking and noted the patient has a sinus rhythm with PVCs. Patient is already on Toprol-XL. No change in medications will be made today. PHYSICAL EXAMINATION Vital signs reviewed. CONSTITUTIONAL: No apparent distress. HEENT: Head is normocephalic. Pupils are equal, round. Sclerae anicteric. Mucous membranes of the mouth are moist. No JVD. No carotid bruit. CHEST EXAMINATION: mild crackles and ronchi in b/l lung mccray HEART EXAMINATION: Regular rate and rhythm. S1, S2 heard. No murmurs, gallops or rub. ABDOMEN: Soft, nontender. Positive bowel sounds. EXTREMITIES: 2+ peripheral pulses, no lower extremity edema and no calf tenderness. NEUROLOGIC EXAMINATION: Patient is awake, alert and oriented x3. ASSESSMENT Community Aquired Pneumonia Mild Acute heart failure with preserved ejection fraction exacerbation History of pulmonary fibrosis Flat and mild elevation of troponin. Unlikely ACS History of rheumatoid arthritis History of COPD PLAN Echocardiogramshows an EF of around 45-50%. This atypical septal motion with some mid anteroseptal wall hypokinesia noticed. Would recommend outpatient nuclear stress test for the patient once respiratory status is stable. Continue aspirin 81 mg, atorvastatin 40 mg daily. Continue metoprolol succinate 50 mg daily. Was started on Aldactone 25 mg daily on this admission due to mildly reduced ejection fraction Would recommend reducing Lasix to 20 mg daily at the time of discharge. Nurse practitioner note has been reviewed, I agree with the documented findings and plan of care. Patient was seen and examined. Objective - Vital Signs Vital signs: Vital Signs Temp 97.9 F 05/13/23 04:00 Pulse 73 05/13/23 04:00 Resp 18 05/13/23 04:00 BP 92/52 05/13/23 04:00 Pulse Ox 91 L 05/13/23 04:00 FiO2 Intake & Output 05/12/23 05/13/23 05/13/23 18:59 06:59 18:59 Intake Total 270 100 Output Total 451 302 Balance -181 -202 Weight 53.8 kg Intake: Oral 270 100 Output: Urine 450 300 Stool 1 2 Other: Voiding Method External Catheter # Voids 1 - Labs CBC & Chem 7: 05/10/23 17:07 05/12/23 07:17 Labs: Abnormal Lab Results - Last 24 Hours (Table) 05/12/23 Range/Units 07:17 Procalcitonin 0.25 H (0.02-0.09) ng/mL
[2023-05-13 10:40] LABS: African American GFR (CKD) >90 (>60 ml/min/1.73 sqM); Anion Gap 11 mmol/L; Blood Urea Nitrogen 22 mg/dL (7-17); Calcium 9.2 mg/dL (8.4-10.2); Carbon Dioxide 28 mmol/L (22-30); Chloride 88 mmol/L (98-107); Glucose 115 mg/dL (74-99); Non-African American GFR(CKD) 90 (>60 ml/min/1.73 sqM); Sodium 127 mmol/L (137-145)
[2023-05-13] MEDS: AZITHROMYCIN 250 MG TAB PO SCH (11:36)
--- NOTE | 2023-05-13 13:30 | P.PN ---
Subjective Progress Note Date: 05/13/23 Pt c/o palpitations intermittently and cough with congestion an inability to relieve sputum. Gen: awake, alert HEENT: normocephalic, atraumatic, good hearing acuity, moist mucous membranes Resp: good air exchange, breathing comfortably with no accessory muscle use, crackles to mid chest in the posterior lung mccray CVS: good distal perfusion x 4, regular rate and rhythm without murmurs GI: soft, NTTP, ND : no SPT, no CVAT, aguila catheter not present MSK: no pitting edema, no clubbing Neuro: non-focal, moving all extremities Psych: cooperative, euthymic mood Hospital course: Patient is a pleasant 62-year-old female with history of COPD/pulmonary fibrosis with chronic respiratory failure requiring 2-1/2 L of nasal cannula presented with cough with whitish sputum production. In the emergency room, patient had a chest x-ray which showed pulmonary fibrotic changes without any pleural effusi ons. Patient had elevated the BNP of 7800. Patient's serum sodium is 136 patient was started on 40 mg IV Lasix from ER twice a day. The patient had mild troponin elevation of around 0.05, EKG did not show any acute ST-T wave changes. During hospitalization, an echocardiogram was done which reveals an ejection fraction of 45-50% with grade 1 diastolic dysfunction and mild anterior wall hypokinesis. Assessment: Acute on chronic hypoxemic respiratory failure Acute on chronic combined systolic and diastolic heart failure exacerbation with ejection fraction 45-50%, grade 1 diastolic dysfunction Community acquired pneumonia suspected Hypertension Hyperlipidemia Essential tremor Seizure disorder Hypothyroidism History of COPD/pulmonary fibrosis History of rheumatoid arthritis Plan: Add flutter valve Continue azithromycin Discussed with cardiology regarding findings of septal hypokinesis in conjunction with or R-wave progression consistent with old myocardial infarction, they recommend outpatient stress test upon discharge Continue by mouth Lasix 20 mg twice a day Obtain influenza A, B PT/OT Patient is full code Objective - Vital Signs Vital signs: Vital Signs Temp 97.8 F 05/13/23 11:39 Pulse 69 05/13/23 11:39 Resp 16 05/13/23 11:39 BP 99/63 05/13/23 11:39 Pulse Ox 95 05/13/23 11:39 FiO2 Intake & Output 05/12/23 05/13/23 05/13/23 18:59 06:59 18:59 Intake Total 270 100 100 Output Total 698 302 751 Balance -691 -202 -921 Weight 53.8 kg Intake: Oral 270 100 100 Output: Urine 450 300 750 Stool 1 2 1 Other: Voiding Method External Catheter External Catheter # Voids 1 - Labs CBC & Chem 7: 05/10/23 17:07 05/13/23 09:06 Labs: Abnormal Lab Results - Last 24 Hours (Table) 05/12/23 05/13/23 Range/Units 07:17 09:06 Sodium 127 L (137-145) mmol/L Chloride 88 L (98-107) mmol/L BUN 22 H (7-17) mg/dL Glucose 115 H (74-99) mg/dL Procalcitonin 0.25 H (0.02-0.09) ng/mL
[2023-05-13 14:18] VITALS: BMI 21.7
[2023-05-13] MEDS: MELATONIN 5 MG TABLET PO SCH (20:28)
[2023-05-13] MEDS: HYDROcodone/APAP 10-325MG 1 EACH TAB PO PRN (20:28)
[2023-05-14] MEDS: LEVOTHYROXINE 75 MCG TAB PO SCH (06:44)
[2023-05-14] MEDS: PANTOPRAZOLE 40 MG TABLET PO SCH (06:44)
[2023-05-14 08:18] VITALS: TEMP 97.5
[2023-05-14] MEDS: PRIMIDONE 50 MG TAB PO SCH (08:33)
[2023-05-14] MEDS: PATIENT'S OWN (Cariprazine Hcl [Vraylar] 3 MG Capsule) PO SCH (08:33)
[2023-05-14] MEDS: ENOXAPARIN 40 MG/0.4 ML SYRINGE SQ SCH (08:33)
[2023-05-14] MEDS: MELOXICAM 7.5 MG TAB PO SCH (08:33)
[2023-05-14] MEDS: FOLIC ACID 1 MG TAB PO SCH (08:33)
[2023-05-14] MEDS: ASPIRIN 81 MG PO SCH (08:33)
[2023-05-14] MEDS: NITROGLYCERIN OINT 1 INCH/GM PACKET TOPICAL SCH (08:33)
[2023-05-14] MEDS: METOPROLOL SUCCINATE (ER) 50 MG TAB.ER.24H PO SCH (08:33)
[2023-05-14] MEDS: ATORVASTATIN 40 MG TAB PO SCH (08:33)
[2023-05-14] MEDS: FUROSEMIDE 20 MG TAB PO SCH (08:33)
[2023-05-14] MEDS: levETIRAcetam 500 MG TAB PO SCH (08:33)
[2023-05-14] MEDS: FLUoxetine HCL 20 MG CAP PO SCH (08:33)
[2023-05-14] MEDS: AZITHROMYCIN 250 MG TAB PO SCH (08:33)
[2023-05-14] MEDS: lisinopriL 5 MG TAB PO SCH (08:34)
[2023-05-14] MEDS: SPIRONOLACTONE 25 MG TAB PO SCH (08:34)
[2023-05-14 12:00] VITALS: BP 101/64; PULSE 70; RESP 18
--- NOTE | 2023-05-14 16:04 | P.DS ---
Providers Date of admission: 05/10/23 20:02 Expected date of discharge: 05/14/23 Attending physician: Cornel Wright MD Consults: 05/10/23 19:57 Consult Physician Routine Consulting Provider: Caio Locke Consult Reason/Comments: CHF patient Do you want consulting provider notified?: Yes Primary care physician: [facility] Course: Patient is a pleasant 62-year-old female with history of COPD/pulmonary fibrosis with chronic respiratory failure requiring 2-1/2 L of nasal cannula presented with cough with whitish sputum production. In the emergency room, patient had a chest x-ray which showed pulmonary fibrotic changes without any pleural effusions. Patient had elevated the BNP of 7800. Patient's serum sodium is 136 patient was started on 40 mg IV Lasix from ER twice a day. The patient had mild troponin elevation of around 0.05, EKG did not show any acute ST-T wave changes. During hospitalization, an echocardiogram was done which reveals an ejection fraction of 45-50% with grade 1 diastolic dysfunction and mild anterior wall hypokinesis. Patient completed a course of azithromycin for concerns of community-acquired pneumonia. Echocardiogram was done which showed EF of 45-50% with atypical septal motion and some mid anteroseptal wall hypokinesis, cardiology recommended outpatient nuclear stress test. She was also started on Lasix 20 mg by mouth twice a day. 05/14 Patient was seen and examined. No acute events overnight. She is on baseline 2 L nasal cannula. Patient reports improvement in her essential tremor. at bedside. States that she feels comfortable being discharged home. BP 101/64 P 70, RR 18, 97% on 2L NC. Patient be discharged home on Lasix 20 mg by mouth twice a day. Also prescribed aspirin 81 mg by mouth daily, Lipitor 40 by mouth daily, metoprolol 50 mg by mouth daily, Aldactone 25 mg by mouth daily and lisinopril 5 mg by mouth daily. Will continue Augmentin for 4 more days to complete a total of 7 days antibiotics. She is advised follow-up with her PCP and cardiology. Pertinent studies include chest x-ray, echocardiogram. General: non toxic, no distress, appears at stated age Derm: warm, dry Head: atraumatic, normocephalic, symmetric Eyes: EOMI, no lid lag, anicteric sclera Cardiovascular: S1S2 reg, no murmur Lungs: Decreased breath sounds bilateral, no rhonchi, no rales , no accessory muscle use Ext: no gross muscle atrophy, no edema, no contractures Neuro: no focal neuro deficits, essential tremor Psych: Alert, oriented, appropriate affect Discharge diagnosis: Acute on chronic hypoxemic respiratory failure Acute on chronic combined systolic and diastolic heart failure exacerbation with ejection fraction 45-50%, grade 1 diastolic dysfunction Community acquired pneumonia suspected Hypertension Hyperlipidemia Essential tremor Seizure disorder Hypothyroidism History of COPD/pulmonary fibrosis History of rheumatoid arthritis This complex discharge took 35 minutes to complete. Patient Condition at Discharge: Stable Plan - Discharge Summary Discharge Rx Participant: No New Discharge Prescriptions: New Furosemide [Lasix] 20 mg PO BID@0900,1600 #60 tab Atorvastatin [Lipitor] 40 mg PO DAILY #30 tab Metoprolol Succinate (ER) [Toprol XL] 50 mg PO DAILY #30 tab lisinopriL [Zestril] 5 mg PO DAILY #30 tab Spironolactone [Aldactone] 25 mg PO DAILY #30 tab Aspirin 81 mg PO DAILY #30 tab Amoxic-Pot Clav 875-125Mg [Augmentin 875-125] 1 tab PO Q12HR 4 Days #8 tab Continue Ergocalciferol (Vitamin D2) [Drisdol (50,000 Iu)] 1,250 mcg PO WE Levothyroxine Sodium [Synthroid] 75 mcg PO DAILY Cariprazine HCl [Vraylar] 3 mg PO DAILY Potassium Chloride ER [K-Dur 20] 20 meq PO Q48H levETIRAcetam [Keppra] 1,000 mg PO BID HYDROcodone/APAP 10-325MG [[place] 10-325] 1 tab PO QID PRN PRN Reason: Pain Nabumetone [Relafen] 500 mg PO BID Folic Acid 1 mg PO DAILY FLUoxetine HCL [PROzac] 40 mg PO DAILY Ipratropium-Albuterol Nebulize [Duoneb 0.5 mg-3 mg/3 ml Soln] 3 ml INHALATION RT-QID PRN PRN Reason: Shortness Of Breath rOPINIRole HCL [Requip] 0.25 mg PO BID diazePAM [Valium] 5 mg PO TID PRN PRN Reason: Anxiety Primidone [Mysoline] 50 mg PO DAILY Discontinued Azithromycin [Zithromax Z Pack] See Taper PO DIRECTED Atorvastatin [Lipitor] 80 mg PO HS Cephalexin [Keflex] 500 mg PO Q12HR 5 Days #10 cap Furosemide [Lasix] 40 mg PO DAILY Discharge Medication List Cariprazine HCl [Vraylar] 3 mg PO DAILY 09/26/22 [History] Ergocalciferol (Vitamin D2) [Drisdol (50,000 Iu)] 1,250 mcg PO WE 09/26/22 [ History] Folic Acid 1 mg PO DAILY 09/26/22 [History] Levothyroxine Sodium [Synthroid] 75 mcg PO DAILY 09/26/22 [History] FLUoxetine HCL [PROzac] 40 mg PO DAILY 05/10/23 [History] HYDROcodone/APAP 10-325MG [[place] 10-325] 1 tab PO QID PRN 05/10/23 [History] Ipratropium-Albuterol Nebulize [Duoneb 0.5 mg-3 mg/3 ml Soln] 3 ml INHALATION RT-QID PRN 05/10/23 [History] Nabumetone [Relafen] 500 mg PO BID 05/10/23 [History] Potassium Chloride ER [K-Dur 20] 20 meq PO Q48H 05/10/23 [History] Primidone [Mysoline] 50 mg PO DAILY 05/10/23 [History] diazePAM [Valium] 5 mg PO TID PRN 05/10/23 [History] levETIRAcetam [Keppra] 1,000 mg PO BID 05/10/23 [History] rOPINIRole HCL [Requip] 0.25 mg PO BID 05/10/23 [History] Amoxic-Pot Clav 875-125Mg [Augmentin 875-125] 1 tab PO Q12HR 4 Days #8 tab 05/14/23 [Rx] Aspirin 81 mg PO DAILY #30 tab 05/14/23 [Rx] Atorvastatin [Lipitor] 40 mg PO DAILY #30 tab 05/14/23 [Rx] Furosemide [Lasix] 20 mg PO BID@0900,1600 #60 tab 05/14/23 [Rx] Metoprolol Succinate (ER) [Toprol XL] 50 mg PO DAILY #30 tab 05/14/23 [Rx] Spironolactone [Aldactone] 25 mg PO DAILY #30 tab 05/14/23 [Rx] lisinopriL [Zestril] 5 mg PO DAILY #30 tab 05/14/23 [Rx] Follow up Appointment(s)/Referral(s): Deondre Diego DO [Primary Care Provider] - 05/22/23 11:15 am Mazin Marie MD [STAFF PHYSICIAN] - 05/22/23 2:00 pm Patient Instructions/Handouts: Heart Failure (IP) Activity/Diet/Wound Care/Special Instructions: Diet: Low salt, 1.5 L fluid restriction Follow up with your PCP within 1-2 days of discharge. Follow up with Cardiology Dr. Marie within 1 week of discharge. Discharge Disposition: HOME SELF-CARE
--- NOTE | 2023-05-15 07:29 | P.PN ---
Subjective Progress Note Date: 05/14/23 HISTORY OF PRESENTING ILLNESS Patient is a 63-year-old female who presented to the ER with chief complaints of worsening cough and sputum production. She received outpatient antibiotics which did not seem to help her therefore she presented to the hospital. The patient is somewhat a poor historian and appears very anxious. She is more concerned about her tremors. On admission her BNP was elevated in the range of 7800. In 2199 BNP was around 400. Her troponins are minimally elevated and has a flat pattern. EKG shows sinus rhythm with no significant ST-T wave changes. Chest x-ray shows mild congestion. Subjective: Patient is seen and examined at bedside this a.m. She reports her breathing is better but is concerned about her shaking. She reports that she is having poor sleep and value was not helping. 05/13 Patient is seen today in follow-up she complains of feeling congested in her chest. No cough. No fever or chills. Patient is being treated for pneumonia. She states that she sometimes feels her heart shaking and noted the patient has a sinus rhythm with PVCs. Patient is already on Toprol-XL. No change in medications will be made today. 05/14 The patient denies any significant shortness of breath but is concerned about her tremors being worse today. She has been maintained on oral Lasix. She is nitro paste which will be taken off and discontinued. Heart rate has been in the 70s, blood pressure 101/64, pulse ox 97% on 2 L nasal cannula. Influenza testing negative. PHYSICAL EXAMINATION Vital signs reviewed. CONSTITUTIONAL: No apparent distress. HEENT: Head is normocephalic. Pupils are equal, round. Sclerae anicteric. Mucous membranes of the mouth are moist. No JVD. No carotid bruit. CHEST EXAMINATION: mild crackles and ronchi in b/l lung mccray HEART EXAMINATION: Regular rate and rhythm. S1, S2 heard. No murmurs, gallops or rub. ABDOMEN: Soft, nontender. Positive bowel sounds. EXTREMITIES: 2+ peripheral pulses, no lower extremity edema and no calf tenderness. NEUROLOGIC EXAMINATION: Patient is awake, alert and oriented x3. ASSESSMENT Community Aquired Pneumonia Mild Acute heart failure with preserved ejection fraction exacerbation History of pulmonary fibrosis Flat and mild elevation of troponin. Unlikely ACS History of rheumatoid arthritis History of COPD PLAN Echocardiogramshows an EF of around 45-50%. This atypical septal motion with some mid anteroseptal wall hypokinesia noticed. Would recommend outpatient nuclear stress test for the patient once respiratory status is stable. Continue aspirin 81 mg, atorvastatin 40 mg daily. Continue metoprolol succinate 50 mg daily. Was started on Aldactone 25 mg daily on this admission due to mildly reduced ejection fraction Would recommend reducing Lasix to 20 mg daily at the time of discharge. Patient is cleared from cardiology for discharge home with follow-up in the office in one to 2 weeks. Nurse practitioner note has been reviewed, I agree with the documented findings and plan of care. Patient was seen and examined. Objective - Vital Signs Vital signs: Vital Signs Temp 97.5 F L 05/14/23 08:17 Pulse 74 05/14/23 08:17 Resp 16 05/14/23 04:00 BP 103/67 05/14/23 08:17 Pulse Ox 99 05/14/23 04:00 FiO2 Intake & Output 05/13/23 05/14/23 05/14/23 18:59 06:59 18:59 Intake Total 690 180 Output Total 1552 552 850 Balance -862 372 -850 Weight 53.8 kg 52.8 kg Intake: Oral 690 180 Output: Urine 1550 550 850 Stool 2 2 Other: Voiding Method External Catheter External Catheter External Catheter # Voids 1 # Bowel Movements 1 1 - Labs CBC & Chem 7: 05/10/23 17:07 05/13/23 09:06
[2023-05-15] MEDS ORDERED: ERGOCALCIFEROL 1,250 MCG (50,000 IU) CAPSULE PO SCH (09:00)
== END 2023-05-14 14:37 | disposition home or self-care (01) | DRG 291 ==
LOC: EC 15:19 → 3SCARD 20:02
PROVIDERS: ADMIT Internal Medicine; ATTEND Internal Medicine
DX: I11.0 Hypertensive heart disease with heart failure (principal); I50.43 Acute on chronic combined systolic (congestive) and diastolic (congestive) heart failure; J18.9 Pneumonia, unspecified organism; J96.21 Acute and chronic respiratory failure with hypoxia; J44.0 Chronic obstructive pulmonary disease with (acute) lower respiratory infection; J84.10 Pulmonary fibrosis, unspecified; G47.00 Insomnia, unspecified; M06.9 Rheumatoid arthritis, unspecified; E78.5 Hyperlipidemia, unspecified; G40.909 Epilepsy, unspecified, not intractable, without status epilepticus; F41.0 Panic disorder [episodic paroxysmal anxiety]; R77.8 Other specified abnormalities of plasma proteins; I49.3 Ventricular premature depolarization; E03.9 Hypothyroidism, unspecified; G25.0 Essential tremor; Z79.1 Long term (current) use of non-steroidal anti-inflammatories (NSAID); Z79.82 Long term (current) use of aspirin; Z79.890 Hormone replacement therapy; Z20.822 Contact with and (suspected) exposure to COVID-19; Z28.21 Immunization not carried out because of patient refusal; Z71.3 Dietary counseling and surveillance; Z79.899 Other long term (current) drug therapy; Z87.891 Personal history of nicotine dependence; Z88.8 Allergy status to other drugs, medicaments and biological substances
CPT/HCPCS: 36415; 71046; 80048; 80053; 81003; 83735; 83880; 84145; 84484; 85025; 87502; 87635; 93306; 94760

== ENCOUNTER → 2023-11-06 | Outpatient (CLI) | payer MEDICARE ==
--- NOTE | 2023-11-15 12:45 | NM ---
EXAMINATION TYPE: NM DatScan Brain SPECT DATE OF EXAM: 11/13/2023 COMPARISON: NONE CLINICAL INDICATION: Female, 63 years old with history of R42 Dizziness,R25.1 Tremor; TECHNIQUE: 10 drops of Lugol's solution was administered 1 hour prior to injection as a thyroid bloc hoang agent. After the administration of 4.5 mCi I-123 Ioflupane DaTscan. Images obtained [address] injection. SPECT images of the brain were acquired with axial and coronal reconstructions. FINDINGS: There is symmetric striatal activity on the images reconstructed to account for the patient's head ti lt. No abnormal increased background activity is seen. IMPRESSION: The normal appearance is against a diagnosis of Parkinson's disease or a parkinsonian syndrome. It ca n be seen in normal individuals and also those with essential tremor.
== END | disposition home or self-care (01) ==
LOC: RADNMMAIN 10:47
PROVIDERS: ATTEND Psychiatry & Neurology Neurology
DX: R42 Dizziness and giddiness (principal); R25.1 Tremor, unspecified
CPT/HCPCS: 78803; A9584

== ENCOUNTER 2024-02-15 12:34 | Inpatient (IN) | payer MEDICARE ==
--- NOTE | 2024-02-15 13:21 | ED ---
General Adult HPI - General Chief complaint: Weakness Stated complaint: Weakness Time Seen by Provider: 02/15/24 12:43 Source: patient, EMS Mode of arrival: EMS - History of Present Illness Initial comments: 63-year-old female presents to the emergency department via EMS for evaluation of fall with head injury and generalized weakness. Patient notes that she has been feeling weak for the past 2 weeks. She notes that yesterday she attempted to get up to use the bathroom by herself when she hit her head on the door frame. She is on a baby aspirin but denies any other blood thinners. Denies loss of consciousness. She denies chest pain, shortness of breath, recent fever, chills, abdominal pain, urinary or bowel symptoms. Admits to cough. - Related Data Home Medications Medication Instructions Recorded Confirmed Ergocalciferol (Vitamin D2) 1,250 mcg PO DIRECTED 09/26/22 02/15/24 [Drisdol (50,000 Iu)] Levothyroxine Sodium [Synthroid] 75 mcg PO DAILY 09/26/22 02/15/24 FLUoxetine HCL [PROzac] 40 mg PO DAILY 05/10/23 02/15/24 Nabumetone [Relafen] 500 mg PO BID 05/10/23 02/15/24 Potassium Chloride ER [K-Dur 20] 20 meq PO Q48H 05/10/23 02/15/24 Atorvastatin [Lipitor] 40 mg PO HS 02/15/24 02/15/24 Calcium Carbonate/Vitamin D3 1 cap PO BID 02/15/24 02/15/24 [Calcium 600 mg-D3 10 Mcg (400 Iu)] Cariprazine HCl [Vraylar] 4.5 mg PO DAILY 02/15/24 02/15/24 LORazepam 1 mg PO DAILY 02/15/24 02/15/24 LORazepam 2 mg PO BID@1200,2000 02/15/24 02/15/24 Pantoprazole [Protonix] 40 mg PO HS 02/15/24 02/15/24 Primidone [Mysoline] 250 mg PO HS 02/15/24 02/15/24 Primidone [Mysoline] 500 mg PO DAILY 02/15/24 02/15/24 oxyCODONE-APAP 7.5-325MG [Percocet 1 tab PO Q4H PRN 02/15/24 02/15/24 7.5-325 mg] Previous Rx's Medication Instructions Recorded Aspirin 81 mg PO DAILY #30 tab 05/14/23 Metoprolol Succinate (ER) [Toprol 50 mg PO DAILY #30 tab 05/14/23 XL] Spironolactone [Aldactone] 25 mg PO DAILY #30 tab 05/14/23 Allergies Allergy/AdvReac Type Severity Reaction Status Date / Time adalimumab [From Humira] Allergy Anaphylaxis Verified 02/15/24 15:25 gabapentin Allergy Chest Pain Verified 02/15/24 15:25 Review of Systems ROS Statement: Those systems with pertinent positive or pertinent negative responses have been documented in the HPI. ROS Other: All systems not noted in ROS Statement are negative. Past Medical History Past Medical History: Heart Failure, COPD, Hypertension, Rheumatoid Arthritis (RA), Thyroid Disorder History of Any Multi-Drug Resistant Organisms: None Reported Past Surgical History: No Surgical Hx Reported Past Anesthesia/Blood Transfusion Reactions: No Reported Reaction Past Psychological History: Anxiety, Panic Disorder Smoking Status: Former smoker Past Alcohol Use History: None Reported Past Drug Use History: None Reported General Exam Limitations: no limitations General appearance: alert, in no apparent distress Head exam: Present: atraumatic, normocephalic, normal inspection Eye exam: Present: normal appearance, PERRL, EOMI. Absent: scleral icterus, conjunctival injection, periorbital swelling ENT exam: Present: normal exam, mucous membranes moist Neck exam: Present: normal inspection. Absent: tenderness, meningismus, l ymphadenopathy Respiratory exam: Present: normal lung sounds bilaterally. Absent: respiratory distress, wheezes, rales, rhonchi, stridor Cardiovascular Exam: Present: regular rate, normal rhythm, gallop. Absent: systolic murmur, diastolic murmur, rubs, clicks GI/Abdominal exam: Present: soft, normal bowel sounds. Absent: distended, tenderness, guarding, rebound, rigid Extremities exam: Present: normal inspection, full ROM, normal capillary refill. Absent: tenderness, pedal edema, joint swelling, calf tenderness Back exam: Present: normal inspection Neurological exam: Present: alert, oriented X3 Psychiatric exam: Present: normal affect, normal mood Skin exam: Present: warm, dry, intact, normal color. Absent: rash Course Vital Signs 02/15/24 02/15/24 02/15/24 12:38 21:00 22:00 Temperature 98.3 F Pulse Rate 64 65 68 Respiratory 18 18 18 Rate Blood Pressure 120/69 129/76 150/91 O2 Sat by Pulse 98 96 96 Oximetry Medical Decision Making - Medical Decision Making Was pt. sent in by a medical professional or institution ([facility] [facility], [facility]ER, urgent care, hospital, or fci...) When possible be specific @ -No Did you speak to anyone other than the patient for history (EMS, parent, family, police, friend...)? What history was obtained from this source @ -No Did you review nursing and triage notes (agree or disagree)? Why? @ -I reviewed and agree with nursing and triage notes Were old charts reviewed (outside hosp., previous admission, EMS record, old EKG, old radiological studies, urgent care reports/EKG's, fci records)? Report findings @ -No old charts were reviewed Differential Diagnosis (chest pain, altered mental status, abdominal pain women, abdominal pain men, vaginal bleeding, weakness, fever, dyspnea, syncope, headache, dizziness, GI bleed, back pain, seizure, CVA, palpatations, mental health, musculoskeletal)? @ -Differential Weakness: Hypoglycemia, shock, sepsis, hyponatremia, anemia, infection, NC, ETOH, adverse medicine reaction, overdose, stroke, this is not meant to be an all-inclusive list. EKG interpreted by me (3pts min.). @ -EKG at 1339 shows possible aflutter with rate 67, AR 154 Repeat EKG at 1528 shows bradycardia rate 57, AR 138, QRS 97, QTQTc 4 454 39 X-rays interpreted by me (1pt min.). @ -Chest x-ray shows mild infiltrate with changes consistent with underlying pulmonary fibrosis CT interpreted by me (1pt min.). @ -CT brain and C-spine shows no acute abnormality U/S interpreted by me (1pt. min.). @ -None done What testing was considered but not performed or refused? (CT, X-rays, U/S, l abs)? Why? @ -None What meds were considered but not given or refused? Why? @ -None Did you discuss the management of the patient with other professionals (professionals i.e. , [employer], [employer]ER, lab, RT, psych nurse, delinquency prevention social worker, compliance testing analyst, teacher, intelligence support officer, oil field caser)? Give summary @ -Discussed with Cari with [facility] who is accepting of the admission Was smoking cessation discussed for >3mins.? @ -No Was critical care preformed (if so, how long)? @ -No Were there social determinants of health that impacted care today? How? (Homelessness, low income, unemployed, alcoholism, drug addiction, transportation, low edu. Level, literacy, decrease access to med. care, [facility], rehab)? @ -No Was there de-escalation of care discussed even if they declined (Discuss DNR or withdrawal of care, Hospice)? DNR status @ -No What co-morbidities impacted this encounter? (DM, HTN, Smoking, COPD, CAD, Ca ncer, CVA, ARF, Chemo, Hep., AIDS, mental health diagnosis, sleep apnea, morbid obesity)? @ -None Was patient admitted / discharged? Hospital course, mention meds given and route, prescriptions, significant lab abnormalities, going to OR and other pertinent info. @ -Admitted. Patient presented to the emergency department for evaluation of generalized weakness. Patient recently took a fall and hit her head. She is not on blood thinners. CT obtained which shows no acute intracranial process. Chest x-ray shows mild infiltrate with changes consistent with underlying pulmonary fibrosis. Initial EKG obtained at 1339 showed sawtooth pattern possible atrial flutter with a rate of 67. Repeat EKG shows sinus bradycardia. Patient does have some mild leukopenia. Does not meet sepsis or SIRS criteria. Patient will be started on antibiotics for pneumonia and admitted for observation. Patient family understanding agreeable plan. Patient stable at time of admission. Case discussed with Cari with [facility] who is accepting of the admission. Case discussed with Dr. Martínez. Undiagnosed new problem with uncertain prognosis? @ -No Drug Therapy requiring intensive monitoring for toxicity (Heparin, Nitro, Insulin, Cardizem)? @ -No Were any procedures done? @ -No Diagnosis/symptom? @ -Pneumonia, weakness Acute, or Chronic, or Acute on Chronic? @ -Acute Uncomplicated (without systemic symptoms) or Complicated (systemic symptoms)? @ -Uncomplicated Side effects of treatment? @ -No Exacerbation, Progression, or Severe Exacerbation? @ -No Poses a threat to life or bodily function? How? (Chest pain, USA, NC, pneumonia, PE, COPD, DKA, ARF, appy, cholecystitis, CVA, Diverticulitis, Homicidal, Suicidal, threat to staff... and all critical care pts) @ -No - Lab Data Result diagrams: 02/15/24 13:12 02/15/24 13:12 Lab Results 02/15/24 02/15/24 02/15/24 Range/Units 13:12 13:12 13:12 WBC 2.6 L (3.8-10.6) k/uL RBC 3.77 L (3.80-5.40) m/uL Hgb 12.5 (11.4-16.0) gm/dL Hct 36.7 (34.0-46.0) % MCV 97.5 (80.0-100.0) fL MCH 33.2 (25.0-35.0) pg MCHC 34.1 (31.0-37.0) g/dL RDW 15.2 (11.5-15.5) % Plt Count 141 L (150-450) k/uL MPV 7.2 Neutrophils % 42 % Lymphocytes % 43 % Monocytes % 8 % Eosinophils % 5 % Basophils % 1 % Neutrophils # 1.1 L (1.3-7.7) k/uL Lymphocytes # 1.1 (1.0-4.8) k/uL Monocytes # 0.2 (0-1.0) k/uL Eosinophils # 0.1 (0-0.7) k/uL Basophils # 0.0 (0-0.2) k/uL Macrocytosis Slight PT 11.5 (10.0-12.5) sec INR 1.1 (<1.2) APTT 24.8 (22.0-30.0) sec Sodium 138 (137-145) mmol/L Potassium 4.5 (3.5-5.1) mmol/L Chloride 109 H (98-107) mmol/L Carbon Dioxide 21 L (22-30) mmol/L Anion Gap 8 mmol/L BUN 8 (7-17) mg/dL Creatinine 0.53 (0.52-1.04) mg/dL Est GFR (CKD-EPI)AfAm >90 (>60 ml/min/1.73 sqM) Est GFR (CKD-EPI)NonAf >90 (>60 ml/min/1.73 sqM) Glucose 87 (74-99) mg/dL Plasma Lactic Acid Robin (0.7-2.0) mmol/L Calcium 8.7 (8.4-10.2) mg/dL Magnesium (1.6-2.3) mg/dL Total Bilirubin 0.4 (0.2-1.3) mg/dL AST 38 H (14-36) U/L ALT 29 (4-34) U/L Alkaline Phosphatase 129 H (38-126) U/L Troponin I (0.000-0.034) ng/mL Total Protein 6.9 (6.3-8.2) g/dL Albumin 3.6 (3.5-5.0) g/dL TSH (0.465-4.680) mIU/L 02/15/24 02/15/24 02/15/24 Range/Units 13:12 13:12 13:12 WBC (3.8-10.6) k/uL RBC (3.80-5.40) m/uL Hgb (11.4-16.0) gm/dL Hct (34.0-46.0) % MCV (80.0-100.0) fL MCH (25.0-35.0) pg MCHC (31.0-37.0) g/dL RDW (11.5-15.5) % Plt Count (150-450) k/uL MPV Neutrophils % % Lymphocytes % % Monocytes % % Eosinophils % % Basophils % % Neutrophils # (1.3-7.7) k/uL Lymphocytes # (1.0-4.8) k/uL Monocytes # (0-1.0) k/uL Eosinophils # (0-0.7) k/uL Basophils # (0-0.2) k/uL Macrocytosis PT (10.0-12.5) sec INR (<1.2) APTT (22.0-30.0) sec Sodium (137-145) mmol/L Potassium (3.5-5.1) mmol/L Chloride (98-107) mmol/L Carbon Dioxide (22-30) mmol/L Anion Gap mmol/L BUN (7-17) mg/dL Creatinine (0.52-1.04) mg/dL Est GFR (CKD-EPI)AfAm (>60 ml/min/1.73 sqM) Est GFR (CKD-EPI)NonAf (>60 ml/min/1.73 sqM) Glucose (74-99) mg/dL Plasma Lactic Acid Robin 1.3 (0.7-2.0) mmol/L Calcium (8.4-10.2) mg/dL Magnesium 1.3 L (1.6-2.3) mg/dL Total Bilirubin (0.2-1.3) mg/dL AST (14-36) U/L ALT (4-34) U/L Alkaline Phosphatase (38-126) U/L Troponin I <0.012 (0.000-0.034) ng/mL Total Protein (6.3-8.2) g/dL Albumin (3.5-5.0) g/dL TSH 1.070 (0.465-4.680) mIU/L Disposition Clinical Impression: Pneumonia, Generalized weakness Disposition: ADMITTED IP TO THIS HOSP Condition: Stable Is patient prescribed a controlled substance at d/c from ED?: No
[2024-02-15 13:31] LABS: Basophils % (A) 1 %; Eosinophils # (A) 0.1 k/uL (0-0.7); Eosinophils % (A) 5 %; HCT 36.7 % (34.0-46.0); HGB 12.5 gm/dL (11.4-16.0); Lymphocytes # (A) 1.1 k/uL (1.0-4.8); Lymphocytes % (A) 43 %; MCH 33.2 pg (25.0-35.0); MCHC 34.1 g/dL (31.0-37.0); MCV 97.5 fL (80.0-100.0); Macrocytosis Slight; Mean Platelet Volume 7.2; Monocytes # (A) 0.2 k/uL (0-1.0); Monocytes % (A) 8 %; Neutrophils # (A) 1.1 k/uL (1.3-7.7); Neutrophils % (A) 42 %; Platelet Count 141 k/uL (150-450); RBC 3.77 m/uL (3.80-5.40); RDW 15.2 % (11.5-15.5); WBC 2.6 k/uL (3.8-10.6)
[2024-02-15 13:42] LABS: ALT 29 U/L (4-34); AST 38 U/L (14-36); African American GFR (CKD) >90 (>60 ml/min/1.73 sqM); Albumin 3.6 g/dL (3.5-5.0); Alkaline Phosphatase 129 U/L (38-126); Anion Gap 8 mmol/L; Blood Urea Nitrogen 8 mg/dL (7-17); Calcium 8.7 mg/dL (8.4-10.2); Carbon Dioxide 21 mmol/L (22-30); Chloride 109 mmol/L (98-107); Glucose 87 mg/dL (74-99); Non-African American GFR(CKD) >90 (>60 ml/min/1.73 sqM); Potassium 4.5 mmol/L (3.5-5.1); Sodium 138 mmol/L (137-145); Total Bilirubin 0.4 mg/dL (0.2-1.3); Total Protein 6.9 g/dL (6.3-8.2)
[2024-02-15 13:48] LABS: INR 1.1 (<1.2); Prothrombin Time 11.5 sec (10.0-12.5)
[2024-02-15 13:49] LABS: Partial Thromboplastin Time 24.8 sec (22.0-30.0)
[2024-02-15] MEDS: LORazepam 1 MG TAB PO STA (14:20)
--- NOTE | 2024-02-15 15:04 | XR ---
EXAMINATION TYPE: XR chest 2V DATE OF EXAM: 02/15/2024 COMPARISON: 05/10/2023 INDICATION: Weakness TECHNIQUE: Frontal and lateral views of the chest are obtained. FINDINGS: The heart size is normal. The pulmonary vasculature is normal. Patchy infiltrates throughout the periphery of the upper lung mccray greater on the right. Correlate for pneumonia. Patient has previously had pulmonary fibrosis with a similar distribution. Follow-up i s recommended.. IMPRESSION: 1. Mild infiltrates present. Infection superimposed on pulmonary fibrosis should be considered.
--- NOTE | 2024-02-15 15:07 | CT ---
EXAMINATION TYPE: CT brain cspine wo con DATE OF EXAM: 02/15/2024 COMPARISON: 09/26/2022 HISTORY: fall CT DLP: 1242.8 mGycm, Automated exposure control for dose reduction was used. CONTRAST: None CT of the brain is performed utilizing 3 mm thick sections through the posterior fossa and 3 mm thick sections through the remaining calvarium. Study is performed within 24 hours of arrival to the hospital. No abnormal hyperdensity is present to suggest an acute intracranial hemorrhage. No mass lesion is evident. No acute infarcts are evident. Ventricles and sulci are appropriate for the patient age. Some minimal swelling over the right cheek may be present. No underlying fractures are evident. Paranasal sinuses and mastoid air cells within the [id number] are clear. IMPRESSIONS: 1. No acute intracranial process. Follow-up MRI can be performed as clinically indicated. CT cervical spine. COMPARISON: None CT of the cervical spine is performed in the axial plane at 2 mm thick sections. Reconstructed image s in the coronal, and sagittal plane are reviewed on the computer. No acute fractures are evident. Vertebral body alignment is straightened. Disc heights are preserved. Vertebral body heights are preserved. No spinal canal stenosis is evident. No neural foraminal stenosis is evident. IMPRESSION: 1. No acute osseous abnormality cervical spine
[2024-02-15 15:21] LABS: Magnesium 1.3 mg/dL (1.6-2.3)
[2024-02-15] MEDS ORDERED: LORazepam 1 MG TAB PO STA (16:31)
[2024-02-15 16:50] LABS: Appearance,Urine Clear (Clear); Bilirubin,Urine Negative (Negative); Blood,Urine Negative (Negative); Color,Urine Colorless; Glucose,Urine (UA) Negative (Negative); Ketones,Urine Negative (Negative); Leukocyte Esterase,Urine Negative (Negative); Nitrite,Urine Negative (Negative); PH, Urine 5.5 (5.0-8.0); Protein,Urine Negative (Negative); Specific Gravity,Urine 1.014 (1.001-1.035); Urobilinogen,Urine <2.0 mg/dL (<2.0)
[2024-02-15] MEDS: LORazepam 0.5 MG TAB PO STA (16:56)
[2024-02-15] MEDS ORDERED: PNEUMONIA PROTOCOL UTILIZED 1 EACH MISC PO PRN (17:03)
[2024-02-15] MEDS ORDERED: NALOXONE 0.4 MG/ML 1 ML VIAL IV PRN (17:32)
[2024-02-15] MEDS ORDERED: MORPHINE SULFATE 4 MG/ML SYRINGE IV PRN (17:32)
[2024-02-15] MEDS: SODIUM CHLORIDE 0.9% 1,000 ML IV SCH (18:01)
[2024-02-15] MEDS: AZITHROMYCIN 500 MG in SODIUM CHLORIDE 0.9% 250 ML IVPB STA (18:52)
[2024-02-15] MEDS ORDERED: Magnesium Replacement Protocol 1 EACH MISC MISCELLANE PRN (19:32)
[2024-02-15] MEDS ORDERED: ONDANSETRON 4 MG/2 ML VIAL IVP PRN (19:33)
[2024-02-15] MEDS: MAGNESIUM SULFATE-D5W PMX 1 GM in DEXTROSE/WATER 1 100ML.BAG IVPB SCH (21:00)
[2024-02-16] MEDS: LORazepam 0.5 MG TAB PO PRN
[2024-02-16] MEDS: ATORVASTATIN 40 MG TAB PO SCH
[2024-02-16] MEDS: oxyCODONE-APAP 7.5-325MG 1 EACH TAB PO PRN
[2024-02-16] MEDS: CALCIUM CARB-VIT D 500 MG-5 MCG TAB PO SCH
[2024-02-16] MEDS: PANTOPRAZOLE 40 MG TABLET PO SCH
[2024-02-16] MEDS: PRIMIDONE 250 MG TAB PO SCH ×4 (00:01→21:32)
[2024-02-16 09:24] LABS: Basophils # (A) 0.03 X 10*3/uL (0.00-0.10); Basophils % (A) 0.8 %; Eosinophils % (A) 5.4 %; HCT 36.3 % (37.2-46.3); HGB 12.6 g/dL (12.0-15.0); Lymphocytes # (A) 1.38 X 10*3/uL (0.90-5.00); Lymphocytes % (A) 37.4 %; MCH 33.2 pg (27.0-32.0); MCHC 34.7 g/dL (32.0-37.0); MCV 95.5 FL (80.0-97.0); Mean Platelet Volume 8.9 FL (9.5-12.2); Monocytes # (A) 0.49 X 10*3/uL (0.20-1.00); Monocytes % (A) 13.3 %; NRBC Per 100 WBC 0 X 10*3/uL (0.00-0.01); Neutrophils # (A) 1.58 X 10*3/uL (1.80-7.70); Neutrophils % (A) 42.8 %; Platelet Count 127 X 10*3/uL (140-440); RDW 14.8 % (11.5-14.5); WBC 3.69 X 10*3/uL (4.50-10.00)
[2024-02-16 09:47] LABS: BUN/Creat Ratio 10.83 Ratio (12.00-20.00); Blood Urea Nitrogen 6.5 mg/dL (9.0-27.0); Calcium 8.9 mg/dL (8.7-10.3); Carbon Dioxide 22.8 mmol/L (21.6-31.8); Chloride 101 mmol/L (96-109); Glucose 92 mg/dL (70-110); Magnesium 2.3 mg/dL (1.5-2.4); Potassium 3.8 mmol/L (3.5-5.5); Sodium 139 mmol/L (135-145)
[2024-02-16] MEDS: FLUoxetine HCL 20 MG CAP PO SCH (09:59)
[2024-02-16] MEDS: ASPIRIN 81 MG PO SCH (09:59)
[2024-02-16] MEDS: LORazepam 1 MG TAB PO PRN (10:00)
[2024-02-16] MEDS: METOPROLOL SUCCINATE (ER) 50 MG TAB.ER.24H PO SCH (10:00)
[2024-02-16] MEDS: LEVOTHYROXINE 75 MCG TAB PO SCH (10:00)
[2024-02-16] MEDS: NON FORMULARY DRUG (Cariprazine Hcl [Vraylar] 4.5 MG Capsule) PO SCH (10:12)
[2024-02-16] MEDS ORDERED: LORAZEPAM 2 MG PO SCH (12:00)
--- NOTE | 2024-02-16 14:59 | P.HPIM ---
History of Present Illness H&P Date: 02/16/24 This is a pleasant 63-year-old female with medical history significant for heart failure, COPD, hypertension, rheumatoid arthritis, thyroid disorder, essential tremors, anxiety and panic disorder. Patient wears oxygen chronically. Patient presents to the hospital after sustaining a fall at home she does live at home with her . Patient states that she was up ambulating she does not use a walker states that she fell into the door wall and then went backwards and hit her head on the door behind her and then fell. Patient states that the right side of her skull hurts over there is no obvious bruising or laceration noted. Patient's family is at the bedside states that they are concerned for her safety and because she has been having frequent falls at home and they would like her to be evaluated rehab and possibly subacute rehab/ECF. Patient denies any dizziness or lightheadedness states that she did not lose consciousness when she fell this was more of a balance issue. Patient is maintained on primidone for history of essential tremor she has not been sleeping well over the last few months states that she has been having nightmares and hallucinations and has been having increased anxiety about bedtime and falling asleep. Patient does follow-up with [facility] and has been set up to see a neuropsychologist and has an appointment pending for March of this year. Patient had a chest x-ray on admission which shows mild infiltrates with infection superimposed on pulmonary fibrosis should be considered. Upon review of prior x-rays these appear to be chronic changes and x-ray is stable patient is not having any cough or shortness of breath and has not had any fever or chills noted. Patient also had a head and cervical spine CT completed which was negative for any acute fractures. Patient had an EKG done on a 67 did reveal sinus rhythm although examination of the EKG appears as a possible a flutter type rhythm. A repeat EKG shows sinus bradycardia. Patient was admitted to the hospital under medicine with a consult placed to physical therapy Occupational Therapy for evaluation and she will be monitored on the cardiac telemetry. Valarie bowling may be a candidate for an event monitor on discharge to rule out any arrhythmia. REVIEW OF SYSTEMS: CONSTITUTIONAL: No fever, no malaise, no fatigue. HEENT: No recent visual problems or hearing problems. Denied any sore throat. CARDIOVASCULAR: No chest pain, orthopnea, PND, no palpitations, no syncope. PULMONARY: No shortness of breath, no cough, no hemoptysis. GASTROINTESTINAL: No diarrhea, no nausea, no vomiting, no abdominal pain. NEUROLOGICAL: No headaches, no weakness, no numbness. HEMATOLOGICAL: Denies any bleeding or petechiae. GENITOURINARY: Denies any burning micturition, frequency, or urgency. MUSCULOSKELETAL/RHEUMATOLOGICAL: Denies any joint pain, swelling, or any muscle pain. ENDOCRINE: Denies any polyuria or polydipsia. The rest of the 14-point review of systems is negative. PHYSICAL EXAMINATION: GENERAL: The patient is alert and oriented x3, not in any acute distress. Well developed, well nourished. HEENT: Pupils are round and equally reacting to light. EOMI. No scleral icterus. No conjunctival pallor. Normocephalic, atraumatic. No pharyngeal erythema. No thyromegaly. CARDIOVASCULAR: S1 and S2 present. No murmurs, rubs, or gallops. PULMONARY: Chest is clear to auscultation, no wheezing or crackles. ABDOMEN: Soft, nontender, nondistended, normoactive bowel sounds. No palpable organomegaly. MUSCULOSKELETAL: No joint swelling or deformity. EXTREMITIES: No cyanosis, clubbing, or pedal edema. NEUROLOGICAL: Gross neurological examination did not reveal any focal deficits. SKIN: No rashes. Patient has a noticable tremor at rest. Assessment and Plan Generalized medical debility and weakness with frequent falls outpatient, physical therapy and occupational therapy have been consulted for evaluation patient will likely need subacute rehab on discharge. Essential tremor maintained on primidone outpatient which has been resumed Anxiety/panic disorder maintained on ativan TID at home. Resumed at lower dose. Insomnia and delirium from the insomnia. Patient will be started on seroquel at HS. Has an appointment with neuro/psych outpatient in March of this year History of rheumatoid arthritis Oxygen dependent COPD Underlying pulmonary fibrosis with chronic changes noted on chest xray. Pneumonia ruled out, patient has normal white blood cell count, afebrile, and normal procalcitonin level does not require antibiotics. Hx of heart failure, grade 1 diastolic dysfunction with reduced EF 45-50%. Not in acute exacerbation. Hypothyroidism maintained on levothyroxine which has been resumed, TSH within normal limits. GI prophylaxis DVT prophylaxis Full Code The impression and plan of care has been dictated by Cari Milian Nurse Practitioner as directed. Dr. Kelsi MD I have performed a history and physical examination and medical decision making of this patient, discussed the same with the dictator, and agree with the dictators assessment and plan as written, documented as a scribe. Based on total visit time, I have performed more than 50% of this visit. Past Medical History Past Medical History: Heart Failure, COPD, Hypertension, Rheumatoid Arthritis (RA), Thyroid Disorder Additional Past Medical History / Comment(s): essental tremors History of Any Multi-Drug Resistant Organisms: None Reported Past Surgical History: No Surgical Hx Reported Past Anesthesia/Blood Transfusion Reactions: No Reported Reaction Past Psychological History: Anxiety, Panic Disorder Smoking Status: Former smoker Past Alcohol Use History: None Reported Past Drug Use History: None Reported Medications and Allergies Home Medications Medication Instructions Recorded Confirmed Type Ergocalciferol (Vitamin D2) 1,250 mcg PO DIRECTED 09/26/22 02/15/24 History [Drisdol (50,000 Iu)] Levothyroxine Sodium [Synthroid] 75 mcg PO DAILY 09/26/22 02/15/24 History FLUoxetine HCL [PROzac] 40 mg PO DAILY 05/10/23 02/15/24 History Nabumetone [Relafen] 500 mg PO BID 05/10/23 02/15/24 History Potassium Chloride ER [K-Dur 20] 20 meq PO Q48H 05/10/23 02/15/24 History Aspirin 81 mg PO DAILY #30 tab 05/14/23 02/15/24 Rx Metoprolol Succinate (ER) [Toprol 50 mg PO DAILY #30 tab 05/14/23 02/15/24 Rx XL] Spironolactone [Aldactone] 25 mg PO DAILY #30 tab 05/14/23 02/15/24 Rx Atorvastatin [Lipitor] 40 mg PO HS 02/15/24 02/15/24 History Calcium Carbonate/Vitamin D3 1 cap PO BID 02/15/24 02/15/24 History [Calcium 600 mg-D3 10 Mcg (400 Iu)] Cariprazine HCl [Vraylar] 4.5 mg PO DAILY 02/15/24 02/15/24 History LORazepam 1 mg PO DAILY 02/15/24 02/15/24 History LORazepam 2 mg PO BID@1200,2000 02/15/24 02/15/24 History Pantoprazole [Protonix] 40 mg PO HS 02/15/24 02/15/24 History Primidone [Mysoline] 250 mg PO DAILY 02/15/24 02/16/24 History Primidone [Mysoline] 500 mg PO HS 02/15/24 02/16/24 History oxyCODONE-APAP 7.5-325MG [Percocet 1 tab PO Q4H PRN 02/15/24 02/15/24 History 7.5-325 mg] Allergies Allergy/AdvReac Type Severity Reaction Status Date / Time adalimumab [From Humira] Allergy Anaphylaxis Verified 02/15/24 15:25 gabapentin Allergy Chest Pain Verified 02/15/24 15:25 Physical Exam Vitals: Vital Signs Temp Pulse Pulse Resp BP BP Pulse Ox 02/16/24 14:13 98.9 F 82 18 151/84 95 02/16/24 11:33 96 02/16/24 07:00 98.7 F 76 16 135/76 95 02/16/24 01:49 98.6 F 59 L 15 143/72 96 02/15/24 23:38 98.6 F 69 15 143/72 96 02/15/24 22:00 68 18 150/91 96 02/15/24 21:00 65 18 129/76 96 Intake and Output 02/15/24 02/16/24 02/16/24 22:59 06:59 14:59 Output Total 500 Balance -500 Output: Urine 500 Other: Voiding Method External Catheter # Voids 3 # Bowel Movements 1 Weight 58.967 kg Results CBC & Chem 7: 02/16/24 06:17 02/16/24 06:17 Labs: Abnormal Lab Results - Last 24 Hours (Table) 02/15/24 02/16/24 02/16/24 Range/Units 13:12 06:17 06:17 WBC 3.69 L (4.50-10.00) X 10*3/uL RBC 3.80 L (4.10-5.20) X 10*6/uL Hct 36.3 L (37.2-46.3) % MCH 33.2 H (27.0-32.0) pg RDW 14.8 H (11.5-14.5) % Plt Count 127 L (140-440) X 10*3/uL MPV 8.9 L (9.5-12.2) FL Neutrophils # 1.58 L (1.80-7.70) X 10*3/uL Anion Gap 15.20 H (4.00-12.00) mmol/L BUN 6.5 L (9.0-27.0) mg/dL BUN/Creatinine Ratio 10.83 L (12.00-20.00) Ratio Magnesium 1.3 L (1.6-2.3) mg/dL Thrombosis Risk Factor Assmnt - Choose All That Apply Any of the Below Risk Factors Present?: Yes Each Factor Represents 1 point: Abnormal pulmonary function (COPD), Medical pt on bed rest, Serious lung disease incl. pneumonia (< 1month) Other Risk Factors: Yes Each Risk Factor Represents 2 Points: Age 61-74 years Other congenital or acquired thrombophilia - If yes, enter type in comment: No Thrombosis Risk Factor Assessment Total Risk Factor Score: 5 Thrombosis Risk Factor Assessment Level: High Risk Assessment and Plan Time with Patient: Greater than 30
[2024-02-16] MEDS: ACETAMINOPHEN TAB 325 MG TAB PO PRN (16:48)
[2024-02-16] MEDS: NAPROXEN 250 MG TAB PO PRN (16:48)
[2024-02-16] MEDS: AZITHROMYCIN 500 MG TAB PO SCH (16:49)
[2024-02-16] MEDS: oxyCODONE-APAP 7.5-325MG 1 EACH TAB PO STA (18:08)
[2024-02-16] MEDS: KETOROLAC 15 MG/ML 1 ML VIAL IVP PRN (21:31)
[2024-02-16] MEDS: QUEtiapine 25 MG TAB PO SCH (21:32)
[2024-02-17] MEDS ORDERED: LORAZEPAM 2 MG PO SCH (09:00)
[2024-02-17] MEDS: HYDROcodone/APAP 5-325MG 1 EACH TAB PO PRN (11:05)
[2024-02-17] MEDS: QUEtiapine 50 MG TAB PO SCH (20:31)
--- NOTE | 2024-02-17 22:13 | P.PN ---
Subjective Progress Note Date: 02/17/24 This is a pleasant 63-year-old female with medical history significant for heart failure, COPD, hypertension, rheumatoid arthritis, thyroid disorder, essential tremors, anxiety and panic disorder. Patient wears oxygen chronically. Patient presents to the hospital after sustaining a fall at home she does live at home with her . Patient states that she was up ambulating she does not use a walker states that she fell into the door wall and then went backwards and hit her head on the door behind her and then fell. Patient states that the right side of her skull hurts over there is no obvious bruising or laceration noted. Patient's family is at the bedside states that they are concerned for her safety and because she has been having frequent falls at home and they would like her to be evaluated rehab and possibly subacute rehab/ECF. Patient denies any dizziness or lightheadedness states that she did not lose consciousness when she fell this was more of a balance issue. Patient is maintained on primidone for history of essential tremor she has not been sleeping well over the last few months states that she has been having nightmares and hallucinations and has been having increased anxiety about bedtime and falling asleep. Patient does follow-up with [facility] and has been set up to see a neuropsychologist and has an appointment pending for March of this year. Patient had a chest x-ray on admission which shows mild infiltrates with infection superimposed on pulmonary fibrosis should be considered. Upon review of prior x-rays these appear to be chronic changes and x-ray is stable patient is not having any cough or shortness of breath and has not had any fever or chills noted. Patient also had a head and cervical spine CT completed which was negative for any acute fractures. Patient had an EKG done on a 67 did reveal sinus rhythm although examination of the EKG appears as a possible a flutter type rhythm. A repeat EKG shows sinus bradycardia. Patient was admitted to the hospital under medicine with a consult placed to physical therapy Occupational Therapy for evaluation and she will be monitored on the cardiac telemetry. Patient may be a candidate for an event monitor on discharge to rule out any arrhythmia. 02/17/2024 Patient is evaluated in follow up resting in bed. Reports generalized pain rating 8/10 states she is always in chronic pain. Percocets were held due to the fall at home and patient is on multiple medications that can cause falls. Patient was given naproxyn and did not help one time percocet given over night in addition to IV toradol which patient states did help her pain. We will resume narcotics however at a lower dose with norco 5 mg every 6 hours. Patient reports difficulty sleeping last night and seroquel dose has been increased for this evening dose. Physical therapy did evaluate the patient and recommended subacute rehab and family is not decided at this time about rehab vs. home with homecare. REVIEW OF SYSTEMS: CONSTITUTIONAL: No fever, no malaise, no fatigue. HEENT: No recent visual problems or hearing problems. Denied any sore throat. CARDIOVASCULAR: No chest pain, orthopnea, PND, no palpitations, no syncope. PULMONARY: No shortness of breath, no cough, no hemoptysis. GASTROINTESTINAL: No diarrhea, no nausea, no vomiting, no abdominal pain. NEUROLOGICAL: No headaches, no weakness, no numbness. PHYSICAL EXAMINATION: GENERAL: The patient is alert and oriented x3, not in any acute distress. Well developed, well nourished. HEENT: Pupils are round and equally reacting to light. EOMI. No scleral icterus. No conjunctival pallor. Normocephalic, atraumatic. No pharyngeal erythema. No thyromegaly. CARDIOVASCULAR: S1 and S2 present. No murmurs, rubs, or gallops. PULMONARY: Chest is clear to auscultation, no wheezing or crackles. ABDOMEN: Soft, nontender, nondistended, normoactive bowel sounds. No palpable organomegaly. MUSCULOSKELETAL: No joint swelling or deformity. EXTREMITIES: No cyanosis, clubbing, or pedal edema. NEUROLOGICAL: Gross neurological examination did not reveal any focal deficits. SKIN: No rashes. Patient has a noticable tremor at rest. Assessment and Plan Generalized medical debility and weakness with frequent falls outpatient, physical therapy and occupational therapy have been consulted for evaluation patient will likely need subacute rehab on discharge. Essential tremor maintained on primidone outpatient which has been resumed Anxiety/panic disorder maintained on ativan TID at home. Resumed at lower dose. Insomnia and delirium from the insomnia. Patient will be started on seroquel at HS. Has an appointment with neuro/psych outpatient in March of this year History of rheumatoid arthritis Oxygen dependent COPD Underlying pulmonary fibrosis with chronic changes noted on chest xray. Pneumonia ruled out, patient has normal white blood cell count, afebrile, and normal procalcitonin level does not require antibiotics. Hx of heart failure, grade 1 diastolic dysfunction with reduced EF 45-50%. Not in acute exacerbation. Hypothyroidism maintained on levothyroxine which has been resumed, TSH within normal limits. Chronic pain will cut back on the dose of narcotics and continue on IV toradol. GI prophylaxis DVT prophylaxis Full Code The impression and plan of care has been dictated by Cari Milian, Nurse Practitioner as directed. Dr. Kelsi MD I have performed a history and physical examination and medical decision making of this patient, discussed the same with the dictator, and agree with the dictators assessment and plan as written, documented as a scribe. Based on total visit time, I have performed more than 50% of this visit. Objective - Vital Signs Vital signs: Vital Signs Temp 98.5 F 02/17/24 20:00 Pulse 98 02/17/24 20:00 Resp 16 02/17/24 20:00 BP 118/70 02/17/24 20:00 Pulse Ox 98 02/17/24 20:00 FiO2 Intake & Output 02/17/24 02/17/24 02/18/24 06:59 18:59 06:59 Intake Total 118 Output Total 700 650 Balance -700 -532 Intake: Oral 118 Output: Urine 700 650 Other: Voiding Method Diaper Diaper Diaper External Catheter External Catheter External Catheter # Voids 1 # Bowel Movements 2 1 - Labs CBC & Chem 7: 02/16/24 06:17 02/16/24 06:17 Labs: Microbiology - Last 24 Hours (Table) 02/15/24 17:45 Blood Culture - Preliminary Blood 02/15/24 17:30 Blood Culture - Preliminary Blood Assessment and Plan Time with Patient: Less than 30
--- NOTE | 2024-02-18 14:30 | P.PN ---
Subjective Progress Note Date: 02/18/24 This is a pleasant 63-year-old female with medical history significant for heart failure, COPD, hypertension, rheumatoid arthritis, thyroid disorder, essential tremors, anxiety and panic disorder. Patient wears oxygen chronically. Patient presents to the hospital after sustaining a fall at home she does live at home with her . Patient states that she was up ambulating she does not use a walker states that she fell into the door wall and then went backwards and hit her head on the door behind her and then fell. Patient states that the right side of her skull hurts over there is no obvious bruising or laceration noted. Patient's family is at the bedside states that they are concerned for her safety and because she has been having frequent falls at home and they would like her to be evaluated rehab and possibly subacute rehab/ECF. Patient denies any dizziness or lightheadedness states that she did not lose consciousness when she fell this was more of a balance issue. Patient is maintained on primidone for history of essential tremor she has not been sleeping well over the last few months states that she has been having nightmares and hallucinations and has been having increased anxiety about bedtime and falling asleep. Patient does follow-up with [facility] and has been set up to see a neuropsychologist and has an appointment pending for March of this year. Patient had a chest x-ray on admission which shows mild infiltrates with infection superimposed on pulmonary fibrosis should be considered. Upon review of prior x-rays these appear to be chronic changes and x-ray is stable patient is not having any cough or shortness of breath and has not had any fever or chills noted. Patient also had a head and cervical spine CT completed which was negative for any acute fractures. Patient had an EKG done on a 67 did reveal sinus rhythm although examination of the EKG appears as a possible a flutter type rhythm. A repeat EKG shows sinus bradycardia. Patient was admitted to the hospital under medicine with a consult placed to physical therapy Occupational Therapy for evaluation and she will be monitored on the cardiac telemetry. Patient may be a candidate for an event monitor on discharge to rule out any arrhythmia. 02/17/2024 Patient is evaluated in follow up resting in bed. Reports generalized pain rating 8/10 states she is always in chronic pain. Percocets were held due to the fall at home and patient is on multiple medications that can cause falls. Patient was given naproxyn and did not help one time percocet given over night in addition to IV toradol which patient states did help her pain. We will resume narcotics however at a lower dose with norco 5 mg every 6 hours. Patient reports difficulty sleeping last night and seroquel dose has been increased for this evening dose. Physical therapy did evaluate the patient and recommended subacute rehab and family is not decided at this time about rehab vs. home with homecare. 02/18/2024 Patient is evaluated in follow up, has been up ambulating in the hallway with physical therapy. States her pain has improved from yesterday after being resumed on narcotics at a lower dose with norco 5mg every 6 hours. Continues on seroquel 50 mg HS. Hemodynamically she is stable. Patient is pending authorization for [facility] and requires 3 nights of inpatient hospital stay prior. REVIEW OF SYSTEMS: CONSTITUTIONAL: No fever, no malaise, no fatigue. HEENT: No recent visual problems or hearing problems. Denied any sore throat. CARDIOVASCULAR: No chest pain, orthopnea, PND, no palpitations, no syncope. PULMONARY: No shortness of breath, no cough, no hemoptysis. GASTROINTESTINAL: No diarrhea, no nausea, no vomiting, no abdominal pain. NEUROLOGICAL: No headaches, no weakness, no numbness. PHYSICAL EXAMINATION: GENERAL: The patient is alert and oriented x3, not in any acute distress. Well developed, well nourished. HEENT: Pupils are round and equally reacting to light. EOMI. No scleral icterus. No conjunctival pallor. Normocephalic, atraumatic. No pharyngeal erythema. No thyromegaly. CARDIOVASCULAR: S1 and S2 present. No murmurs, rubs, or gallops. PULMONARY: Chest is clear to auscultation, no wheezing or crackles. ABDOMEN: Soft, nontender, nondistended, normoactive bowel sounds. No palpable organomegaly. MUSCULOSKELETAL: No joint swelling or deformity. EXTREMITIES: No cyanosis, clubbing, or pedal edema. NEUROLOGICAL: Gross neurological examination did not reveal any focal deficits. SKIN: No rashes. Patient has a noticable tremor at rest. Assessment and Plan Generalized medical debility and weakness with frequent falls outpatient, physical therapy and occupational therapy have been consulted for evaluation patient will likely need subacute rehab on discharge. Essential tremor maintained on primidone outpatient which has been resumed Anxiety/panic disorder maintained on ativan TID at home. Resumed at lower dose. Insomnia and delirium from the insomnia. Patient will be started on seroquel at HS. Has an appointment with neuro/psych outpatient in March of this year History of rheumatoid arthritis Oxygen dependent COPD Underlying pulmonary fibrosis with chronic changes noted on chest xray. Pneumonia ruled out, patient has normal white blood cell count, afebrile, and normal procalcitonin level does not require antibiotics. Hx of heart failure, grade 1 diastolic dysfunction with reduced EF 45-50%. Not in acute exacerbation. Hypothyroidism maintained on levothyroxine which has been resumed, TSH within normal limits. Chronic pain will cut back on the dose of narcotics and continue on IV toradol. GI prophylaxis DVT prophylaxis Full Code Patient is pending authorization for [facility] and requires 3 nights of inpatient hospital stay prior. Patient to discharge on . Continue with pain management regimen with norco 5 mg Q6h, IV toradol, naprosyn. Patient to continue on seroquel at HS. Repeat BMP in the AM. The impression and plan of care has been dictated by Cari Milian Nurse Practitioner as directed. Dr. Kelsi MD I have performed a history and physical examination and medical decision making of this patient, discussed the same with the dictator, and agree with the dictators assessment and plan as written, documented as a scribe. Based on total visit time, I have performed more than 50% of this visit. Objective - Vital Signs Vital signs: Vital Signs Temp 98.1 F 02/18/24 07:00 Pulse 70 02/18/24 07:00 Resp 18 02/18/24 09:20 BP 127/70 02/18/24 07:00 Pulse Ox 96 02/18/24 08:28 FiO2 Intake & Output 02/17/24 02/18/24 02/18/24 18:59 06:59 18:59 Intake Total 118 Output Total 650 900 300 Balance -532 -900 -300 Intake: Oral 118 Output: Urine 650 900 300 Other: Voiding Method Diaper Diaper Diaper External Catheter External Catheter External Catheter # Voids 1 # Bowel Movements 1 0 1 - Labs CBC & Chem 7: 02/16/24 06:17 02/16/24 06:17 Labs: Microbiology - Last 24 Hours (Table) 02/15/24 17:45 Blood Culture - Preliminary Blood 02/15/24 17:30 Blood Culture - Preliminary Blood Assessment and Plan Time with Patient: Less than 30
--- NOTE | 2024-02-19 08:20 | CDI ---
Documentation Clarification Form Date: 02/19/2024 From: Shanell Kerr Phone: [phone] Admit Date: 02/17/2024 02:57:00 PM Patient Name: Mary Navarro Visit Number: [id number] Discharge Date: ATTENTION: The Clinical Documentation Specialists (CDI) and [facility] Coding Staff appreciate your assistance in clarifying documentation. Please respond to the clarification below the line at the bottom and electronically sign. The CDI & [facility] Coding staff will review the response and follow-up if needed. Please note: Queries are made part of the Legal Health Record. If you have any questions, please contact the author of this message via ITS. GLORIA Ovalle: Your patient has the documented symptom of medical debility and weakness in the H&P 02/15. Additional clarification regarding the etiology/cause of this symptom is requested. History/Risk Factors: Pulmonary fibrosis, essential tremor, insomnia and delirium, RA, COPD, CHF who presents after fall and hit her head Clinical Indicators: 02/14 Triage VS: 120/69, 98.3, 64, 18, 98% on 2 liters nasal cannula 02/15 H&P, Assessment and Plan: "Generalized medical debility and weakness with frequent falls outpatient, physical therapy and occupational therapy have been consulted for evaluation." 02/16 Physical Therapy evaluation, Discharge Recommendations: "Sub-acute Rehabilitation" Assessment Comment, "Patient presents with generalized weakness with decreased functional mobility." 02/17 Occupational Therapy, Discharge Recommendations: "Sub-Acute Rehab." Treatment: PT/OT evaluations Pending transfer to [facility] Is there a corresponding diagnosis/etiology for this symptom of weakness? [ x ] Age related physical debility [ ] Unable to determine [ ] Other, please specify MTDD
[2024-02-19 09:15] LABS: African American GFR (CKD) >90 (>60 ml/min/1.73 sqM); Anion Gap 9 mmol/L; Blood Urea Nitrogen 10 mg/dL (7-17); Calcium 9.7 mg/dL (8.4-10.2); Carbon Dioxide 23 mmol/L (22-30); Chloride 104 mmol/L (98-107); Glucose 94 mg/dL (74-99); Magnesium 1.6 mg/dL (1.6-2.3); Non-African American GFR(CKD) >90 (>60 ml/min/1.73 sqM); Potassium 3.9 mmol/L (3.5-5.1); Sodium 136 mmol/L (137-145)
[2024-02-19 09:32] LABS: Basophils % (A) 1 %; Eosinophils # (A) 0.4 k/uL (0-0.7); Eosinophils % (A) 9 %; HCT 38.6 % (34.0-46.0); HGB 12.7 gm/dL (11.4-16.0); Lymphocytes # (A) 1.5 k/uL (1.0-4.8); Lymphocytes % (A) 38 %; MCH 32.5 pg (25.0-35.0); MCHC 32.9 g/dL (31.0-37.0); MCV 98.9 fL (80.0-100.0); Macrocytosis Slight; Mean Platelet Volume 7.5; Monocytes # (A) 0.4 k/uL (0-1.0); Monocytes % (A) 9 %; Neutrophils # (A) 1.6 k/uL (1.3-7.7); Neutrophils % (A) 39 %; Platelet Count 208 k/uL (150-450); RDW 15.7 % (11.5-15.5); WBC 4.1 k/uL (3.8-10.6)
[2024-02-19] MEDS: MAGNESIUM SULFATE-D5W PMX 1 GM in DEXTROSE/WATER 1 100ML.BAG IVPB SCH (12:35)
--- NOTE | 2024-02-19 13:21 | P.PN ---
Subjective Progress Note Date: 02/19/24 This is a pleasant 63-year-old female with medical history significant for heart failure, COPD, hypertension, rheumatoid arthritis, thyroid disorder, essential tremors, anxiety and panic disorder. Patient wears oxygen chronically. Patient presents to the hospital after sustaining a fall at home she does live at home with her . Patient states that she was up ambulating she does not use a walker states that she fell into the door wall and then went backwards and hit her head on the door behind her and then fell. Patient states that the right side of her skull hurts over there is no obvious bruising or laceration noted. Patient's family is at the bedside states that they are concerned for her safety and because she has been having frequent falls at home and they would like her to be evaluated rehab and possibly subacute rehab/ECF. Patient denies any dizziness or lightheadedness states that she did not lose consciousness when she fell this was more of a balance issue. Patient is maintained on primidone for history of essential tremor she has not been sleeping well over the last few months states that she has been having nightmares and hallucinations and has been having increased anxiety about bedtime and falling asleep. Patient does follow-up with [facility] and has been set up to see a neuropsychologist and has an appointment pending for March of this year. Patient had a chest x-ray on admission which shows mild infiltrates with infection superimposed on pulmonary fibrosis should be considered. Upon review of prior x-rays these appear to be chronic changes and x-ray is stable patient is not having any cough or shortness of breath and has not had any fever or chills noted. Patient also had a head and cervical spine CT completed which was negative for any acute fractures. Patient had an EKG done on a 67 did reveal sinus rhythm although examination of the EKG appears as a possible a flutter type rhythm. A repeat EKG shows sinus bradycardia. Patient was admitted to the hospital under medicine with a consult placed to physical therapy Occupational Therapy for evaluation and she will be monitored on the cardiac telemetry. Patient may be a candidate for an event monitor on discharge to rule out any arrhythmia. 02/17/2024 Patient is evaluated in follow up resting in bed. Reports generalized pain rating 8/10 states she is always in chronic pain. Percocets were held due to the fall at home and patient is on multiple medications that can cause falls. Patient was given naproxyn and did not help one time percocet given over night in addition to IV toradol which patient states did help her pain. We will resume narcotics however at a lower dose with norco 5 mg every 6 hours. Patient reports difficulty sleeping last night and seroquel dose has been increased for this evening dose. Physical therapy did evaluate the patient and recommended subacute rehab and family is not decided at this time about rehab vs. home with homecare. 02/18/2024 Patient is evaluated in follow up, has been up ambulating in the hallway with physical therapy. States her pain has improved from yesterday after being resumed on narcotics at a lower dose with norco 5mg every 6 hours. Continues on seroquel 50 mg HS. Hemodynamically she is stable. Patient is pending authorization for [facility] and requires 3 nights of inpatient hospital stay prior. 02/19/2024 Patient is evaluated today in follow-up resting in bed with the bedside. She reports chronic pain about 5 out of 10 but states it is controlled. Patient does report that the Seroquel is helping her feel more restful at night although she is only getting about 1 to 2 hours of sleep. Her blood work today is essentially unremarkable. Magnesium level is 1.6. REVIEW OF SYSTEMS: CONSTITUTIONAL: No fever, no malaise, no fatigue. HEENT: No recent visual problems or hearing problems. Denied any sore throat. CARDIOVASCULAR: No chest pain, orthopnea, PND, no palpitations, no syncope. PULMONARY: No shortness of breath, no cough, no hemoptysis. GASTROINTESTINAL: No diarrhea, no nausea, no vomiting, no abdominal pain. NEUROLOGICAL: No headaches, no weakness, no numbness. PHYSICAL EXAMINATION: GENERAL: The patient is alert and oriented x3, not in any acute distress. Well developed, well nourished. HEENT: Pupils are round and equally reacting to light. EOMI. No scleral icterus. No conjunctival pallor. Normocephalic, atraumatic. No pharyngeal erythema. No thyromegaly. CARDIOVASCULAR: S1 and S2 present. No murmurs, rubs, or gallops. PULMONARY: Chest is clear to auscultation, no wheezing or crackles. ABDOMEN: Soft, nontender, nondistended, normoactive bowel sounds. No palpable organomegaly. MUSCULOSKELETAL: No joint swelling or deformity. EXTREMITIES: No cyanosis, clubbing, or pedal edema. NEUROLOGICAL: Gross neurological examination did not reveal any focal deficits. SKIN: No rashes. Patient has a noticable tremor at rest. Assessment and Plan Weakness with frequent falls outpatient due to age related medical dibility; physical therapy and occupational therapy have been consulted for evaluation patient will need subacute rehab on discharge. Essential tremor maintained on primidone outpatient which has been resumed Anxiety/panic disorder maintained on ativan TID at home. Resumed at lower dose. Insomnia and delirium from the insomnia. Patient will be started on seroquel at HS. Has an appointment with neuro/psych outpatient in March of this year History of rheumatoid arthritis Oxygen dependent COPD Underlying pulmonary fibrosis with chronic changes noted on chest xray. Pneumonia ruled out, patient has normal white blood cell count, afebrile, and normal procalcitonin level does not require antibiotics. Hx of heart failure, grade 1 diastolic dysfunction with reduced EF 45-50%. Not in acute exacerbation. Hypothyroidism maintained on levothyroxine which has been resumed, TSH within normal limits. Chronic pain will cut back on the dose of narcotics and continue on IV toradol. GI prophylaxis DVT prophylaxis Full Code Patient is pending authorization for [facility] and requires 3 nights of inpatient hospital stay prior. Patient to discharge on . Continue with pain management regimen with norco 5 mg Q6h, IV toradol, naprosyn. Patient to continue on seroquel at HS. We will check an EKG for QT monitoring and if it is not prolonged the dose of seroquel will be increased to 75 mg HS. Recommend to not check a blood pressure or wake patient throughout the night while patient is sleeping to allow for a full night rest. The impression and plan of care has been dictated by Cari Milian Nurse Practitioner as directed. Dr. Kelsi MD I have performed a history and physical examination and medical decision making of this patient, discussed the same with the dictator, and agree with the dictators assessment and plan as written, documented as a scribe. Based on total visit time, I have performed more than 50% of this visit. Objective - Vital Signs Vital signs: Vital Signs Temp 98.4 F 02/19/24 07:00 Pulse 74 02/19/24 07:00 Resp 17 05/08/24 07:00 BP 127/68 02/19/24 07:00 Pulse Ox 94 L 02/19/24 08:38 FiO2 Intake & Output 02/18/24 02/19/24 02/19/24 18:59 06:59 18:59 Output Total 950 Balance -950 Output: Urine 950 Other: Voiding Method Diaper Diaper External Catheter External Catheter # Voids 1 # Bowel Movements 1 0 - Labs CBC & Chem 7: 02/19/24 08:00 02/19/24 08:00 Labs: Abnormal Lab Results - Last 24 Hours (Table) 02/19/24 02/19/24 Range/Units 08:00 08:00 RDW 15.7 H (11.5-15.5) % Sodium 136 L (137-145) mmol/L Microbiology - Last 24 Hours (Table) 02/15/24 17:45 Blood Culture - Preliminary Blood 02/15/24 17:30 Blood Culture - Preliminary Blood Assessment and Plan Time with Patient: Less than 30
[2024-02-19 14:28] VITALS: RESP 16
[2024-02-19] MEDS: QUEtiapine 25 MG TAB PO SCH (20:10)
--- NOTE | 2024-02-20 13:05 | P.DS ---
Providers Date of admission: 02/17/24 14:57 Attending physician: Hudson Vigil Primary care physician: Deondre Diego [facility] Course: Final Diagnosis Generalized medical debility and weakness with frequent falls outpatient, physical therapy and occupational therapy have been consulted for evaluation patient will need subacute rehab on discharge. Essential tremor maintained on primidone outpatient which has been resumed Anxiety/panic disorder maintained on ativan TID at home. Resumed at lower dose. Insomnia and delirium from the insomnia. Patient will be started on seroquel at HS. Has an appointment with neuro/psych outpatient in March of this year History of rheumatoid arthritis Oxygen dependent COPD Underlying pulmonary fibrosis with chronic changes noted on chest xray. Pneumonia ruled out, patient has normal white blood cell count, afebrile, and normal procalcitonin level does not require antibiotics. Hx of heart failure, grade 1 diastolic dysfunction with reduced EF 45-50%. Not in acute exacerbation. Hypothyroidism maintained on levothyroxine which has been resumed, TSH within normal limits. Chronic pain will cut back on the dose of narcotics and continue on IV toradol. Discharge Disposition Patient stable for discharge to rehab. Patient will continue all same home medications with the exception of a decreased dose of her lorazepam to 1 mg 3 times a day as well as a decreased dose in her narcotics she has been discharged on Pelham 5 every 6 hours. Patient should follow-up with her neurologist on discharge in 2 to 3 weeks. Patient has been set up with a neuropsych evaluation outpatient and needs to keep that appointment which is scheduled for March 18 130 PM; Dr. Lang Eastman; ; Address: [address] [place] [address]. patient will discharge on Seroquel 75 mg at bedtime. Would recommend to repeat an EKG in 1 to 2 weeks outpatient for continued QT interval monitoring. Repeat blood work in 2 to 3 days. Follow up with your PCP Dr. Deondre Diego in 1 to 2 days. Hospital Course This is a pleasant 63-year-old female with medical history significant for heart failure, COPD, hypertension, rheumatoid arthritis, thyroid disorder, essential tremors, anxiety and panic disorder. Patient wears oxygen chronically. Patient presents to the hospital after sustaining a fall at home she does live at home with her . Patient states that she was up ambulating she does not use a walker states that she fell into the door wall and then went backwards and hit her head on the door behind her and then fell. Patient states that the right side of her skull hurts over there is no obvious bruising or laceration noted. Patient's family is at the bedside states that they are concerned for her safety and because she has been having frequent falls at home and they would like her to be evaluated rehab and possibly subacute rehab/ECF. Patient denies any dizziness or lightheadedness states that she did not lose consciousness when she fell this was more of a balance issue. Patient is maintained on primidone for history of essential tremor she has not been sleeping well over the last few months states that she has been having nightmares and hallucinations and has been having increased anxiety about bedtime and falling asleep. Patient does follow-up with [facility] and has been set up to see a neuropsychologist and has an appointment pending for March of this year. Patient had a chest x-ray on admission which shows mild infiltrates with infection superimposed on pulmonary fibrosis should be considered. Upon review of prior x-rays these appear to be chronic changes and x-ray is stable patient is not having any cough or shortness of breath and has not had any fever or chills noted. Patient also had a head and cervical spine CT completed which was negative for any acute fractures. Patient had an EKG done on a 67 did reveal sinus rhythm although examination of the EKG appears as a possible a flutter type rhythm. A repeat EKG shows sinus bradycardia. Patient was admitted to the hospital under medicine with a consult placed to physical therapy Occupational Therapy for evaluation and they did recommend subacute rehab and patient and family are agreeing plan is for discharge to rehab. No evidence of arrhythmia on further telemetry monitoring. Patient wears oxygen chronically at baseline that she is currently at her baseline not complaining of any additional shortness of breath she does not have any chest pain or chest pressure, denies palpitations. no nausea no vomiting or diarrhea. Alert and oriented x 3. Family at the bedside was updated on plans for discharge today and everybody is in agreements on the current plan of care. Please see medication reconciliation for a list of current medications. Thank you for allowing us to participate in the care of this patient. The impression and plan of care has been dictated by Cari Milian, Nurse Practitioner as directed. Dr. Kelsi MD I have performed a history and physical examination and medical decision making of this patient, discussed the same with the dictator, and agree with the dictators assessment and plan as written, documented as a scribe. Based on total visit time, I have performed more than 50% of this visit. Patient Condition at Discharge: Stable Plan - Discharge Summary Discharge Rx Participant: No New Discharge Prescriptions: New LORazepam [Ativan] 1 mg PO TID PRN #6 tab PRN Reason: Anxiety Naproxen [Naprosyn] 250 mg PO TID PRN tab PRN Reason: Pain HYDROcodone/APAP 5-325MG [Pelham 5-325] 1 each PO Q6HR PRN #4 tab PRN Reason: Pain Acetaminophen Tab [Tylenol] 650 mg PO Q6HR PRN tab PRN Reason: Mild Pain Or Fever > 100.5 QUEtiapine [SEROquel] 75 mg PO HS tab Continue Ergocalciferol (Vitamin D2) [Drisdol (50,000 Iu)] 1,250 mcg PO WE Levothyroxine Sodium [Synthroid] 75 mcg PO DAILY Potassium Chloride ER [K-Dur 20] 20 meq PO Q48H Nabumetone [Relafen] 500 mg PO BID Metoprolol Succinate (ER) [Toprol XL] 50 mg PO DAILY #30 tab LORazepam 1 mg PO DAILY Primidone [Mysoline] 500 mg PO HS Cariprazine HCl [Vraylar] 4.5 mg PO DAILY FLUoxetine HCL [PROzac] 40 mg PO DAILY Spironolactone [Aldactone] 25 mg PO DAILY #30 tab Aspirin 81 mg PO DAILY #30 tab Pantoprazole [Protonix] 40 mg PO HS Primidone [Mysoline] 250 mg PO DAILY Atorvastatin [Lipitor] 40 mg PO HS Calcium Carbonate/Vitamin D3 [Calcium 600 mg-D3 10 Mcg (400 Iu)] 1 cap PO BID Discontinued oxyCODONE-APAP 7.5-325MG [Percocet 7.5-325 mg] 1 tab PO Q4H PRN PRN Reason: Pain LORazepam 2 mg PO BID@1200,2000 Discharge Medication List Ergocalciferol (Vitamin D2) [Drisdol (50,000 Iu)] 1,250 mcg PO WE 09/26/22 [History] Levothyroxine Sodium [Synthroid] 75 mcg PO DAILY 09/26/22 [History] FLUoxetine HCL [PROzac] 40 mg PO DAILY 05/10/23 [History] Nabumetone [Relafen] 500 mg PO BID 05/10/23 [History] Potassium Chloride ER [K-Dur 20] 20 meq PO Q48H 05/10/23 [History] Aspirin 81 mg PO DAILY #30 tab 05/14/23 [Rx] Metoprolol Succinate (ER) [Toprol XL] 50 mg PO DAILY #30 tab 05/14/23 [Rx] Spironolactone [Aldactone] 25 mg PO DAILY #30 tab 05/14/23 [Rx] Atorvastatin [Lipitor] 40 mg PO HS 02/15/24 [History] Calcium Carbonate/Vitamin D3 [Calcium 600 mg-D3 10 Mcg (400 Iu)] 1 cap PO BID 02/15/24 [History] Cariprazine HCl [Vraylar] 4.5 mg PO DAILY 02/15/24 [History] LORazepam 1 mg PO DAILY 02/15/24 [History] Pantoprazole [Protonix] 40 mg PO HS 02/15/24 [History] Primidone [Mysoline] 250 mg PO DAILY 02/15/24 [History] Primidone [Mysoline] 500 mg PO HS 02/15/24 [History] Acetaminophen Tab [Tylenol] 650 mg PO Q6HR PRN tab 02/20/24 [Rx] HYDROcodone/APAP 5-325MG [Pelham 5-325] 1 each PO Q6HR PRN #4 tab 02/20/24 [Rx] LORazepam [Ativan] 1 mg PO TID PRN #6 tab 02/20/24 [Rx] Naproxen [Naprosyn] 250 mg PO TID PRN tab 02/20/24 [Rx] QUEtiapine [SEROquel] 75 mg PO HS tab 02/20/24 [Rx] Follow up Appointment(s)/Referral(s): Deondre Diego DO [Primary Care Provider] - 1-2 days Ambulatory/Diagnostic Orders: Basic Metabolic Panel [LAB.AMB] Time Frame: 3 Days, Location: None Selected Complete Blood Count w/diff [LAB.AMB] Location: None Selected Activity/Diet/Wound Care/Special Instructions: Keep your neuro-psych appointment March 18 130 PM; Dr. Lang Eastman; ; Address: [address] [place] [address] [facility] Discharge Disposition: TRANSFER TO SNF/ECF
[2024-02-20 16:45] VITALS: BP 139/79; PULSE 69; TEMP 98.4
== END 2024-02-20 16:38 | DRG 884 ==
LOC: EC 12:34 → 6NMEDSUR 16:02 → OBSVTOIN 02-17 14:57
PROVIDERS: ADMIT Hospitalist; ATTEND Hospitalist
DX: R54 Age-related physical debility (principal); F05 Delirium due to known physiological condition; I50.32 Chronic diastolic (congestive) heart failure; S09.90XA Unspecified injury of head, initial encounter; I11.0 Hypertensive heart disease with heart failure; J84.10 Pulmonary fibrosis, unspecified; J44.9 Chronic obstructive pulmonary disease, unspecified; M06.9 Rheumatoid arthritis, unspecified; E03.9 Hypothyroidism, unspecified; D72.819 Decreased white blood cell count, unspecified; R00.1 Bradycardia, unspecified; F41.0 Panic disorder [episodic paroxysmal anxiety]; G25.0 Essential tremor; R29.6 Repeated falls; G47.00 Insomnia, unspecified; G89.29 Other chronic pain; Z99.81 Dependence on supplemental oxygen; Z79.82 Long term (current) use of aspirin; Z79.890 Hormone replacement therapy; Z79.1 Long term (current) use of non-steroidal anti-inflammatories (NSAID); Z79.899 Other long term (current) drug therapy; Z87.891 Personal history of nicotine dependence; W01.198A Fall on same level from slipping, tripping and stumbling with subsequent striking against other object, initial encounter; Z91.81 History of falling; Y92.009 Unspecified place in unspecified non-institutional (private) residence as the place of occurrence of the external cause; Z88.8 Allergy status to other drugs, medicaments and biological substances
CPT/HCPCS: 36415; 70450; 71046; 72125; 80048; 80053; 81003; 83605; 83735; 83880; 84145; 84443; 84484; 85025; 85610; 85730; 87040; 93005; 94760; 96365; 96366; 96367; 99285